=== PATIENT | male | born 1950 | race Caucasian/White ===

== ENCOUNTER 2021-11-22 10:31 | Emergency (ER) | payer MEDICARE, SELFPAY ==
--- NOTE | 2021-11-22 10:34 | ED.EAR ---
HPI - Ear Problem General Chief complaint: Ear Stated complaint: Ear Pain Time Seen by Provider: 11/22/21 10:51 Source: patient and RN notes reviewed Mode of arrival: ambulatory Limitations: no limitations History of Present Illness HPI Narrative: 71-year-old male presents with concern for muffled hearing, worse on the left. Reports he was getting his hearing aid adjusted when they told him he could have fluid in his ear or an infection. He denies any pain in either ear or drainage from either ear. Reports chronic rhinorrhea. Denies nasal congestion MD Complaint: decreased hearing Related Data Home Medications Medication Instructions Recorded Confirmed apixaban 2.5 mg tablet 2.5 mg PO BID 04/27/20 09/28/20 carvedilol 3.125 mg tablet 3.125 mg PO Q12H 04/27/20 11/22/21 empagliflozin 10 mg tablet 10 mg PO DAILY 04/27/20 11/22/21 insulin glargine 100 unit/mL 10 unit SUB-Q DAILY 04/27/20 09/28/20 subcutaneous solution liraglutide 0.6 mg/0.1 mL (18 mg/3 0.6 mg SUB-Q DAILY 04/27/20 11/22/21 mL) subcutaneous pen injector losartan 25 mg tablet 100 mg PO DAILY 04/27/20 11/22/21 clopidogrel 75 mg PO DAILY 11/22/21 11/22/21 mesalamine 2.4 g PO DAILY 11/22/21 11/22/21 minocycline 50 mg PO BID 11/22/21 11/22/21 Allergies Allergy/AdvReac Type Severity Reaction Status Date / Time Mobzejf-USD-ZwQ Reductase AdvReac Unknown Other Verified 11/22/21 10:38 Inhibitor [Pxucvuz-Epf-Khm Reductase Inhibitor] Review of Systems Review of Systems: CONSTITUTIONAL: Denies malaise, chills, sweats, or fever. EYES: Denies visual changes, redness, or discharge. ENT: Reports rhinorrhea. Denies congestion, sinus pain, and sore throat. Reports muffled hearing, worse on the left CARDIOVASCULAR: Denies chest pain, palpitations, or edema. RESPIRATORY: Denies cough. Denies dyspnea. GASTROINTESTINAL: Denies abdominal pain, nausea, vomiting, diarrhea SKIN: Denies rash or itching. MUSCULOSKELETAL: Denies myalgia. NEUROLOGIC: Denies headache. All systems reviewed & are unremarkable except as noted in HPI and below PMFSH Social History Social History Smoking status: Former smoker Smoking end date: 03/03/03 Comments At time of signature, agree with nursing past medical, surgical, social and family history. There is no relevant family history pertinent to the presenting complaint Exam Narrative: GENERAL: Well-appearing, well-nourished, and in no acute distress. HEAD: Normocephalic EYES: PERRLA, conjunctivae clear ENT: Nares clear. Mucous membranes moist. TM pearly pastrana with dull light reflex bilaterally; no tragal tenderness. Oropharynx not erythematous without lesions. Tonsils not enlarged and without exudate, no drooling, no hoarseness, no trismus, uvula midline. NECK: Supple. No lymphadenopathy CHEST: Clear to auscultation, breath sounds equal. No wheezing, rhonchi, rales, or stridor. No respiratory distress, speaks in full sentences. HEART: Regular rate and rhythm. No murmur heard. SKIN: Warm, dry, no rash. NEURO: Alert and oriented x3. PSYCH: Normal mood and affect Course Course Emergency Course: Patient is aware of diagnosis, understands and agrees to treatment plan. Anticipatory guidance given. Patient agrees to follow-up as directed and is aware of reasons to seek care at the emergency department. Portions of this record may have been created with voice recognition software Level of Care: Express Care Visit Vital Signs Vital signs: Reviewed. Medical Decision Making MDM Narrative Medical decision making narrative: Differential diagnosis considered: virus, strep pharyngitis, allergic rhinitis, upper respiratory tract infection, sinusitis, rhinosinusitis, nasopharyngitis. viral pharyngitis, otitis media, otitis externa, otitis effusion, cerumen impaction, foreign body. Exam findings show no acute concerns or changes; patient is non-toxic appearing and is in no distre
[2021-11-22 10:37] VITALS: BP 137/83; PULSE 69; RESP 18; TEMP 36.3; O2SAT 98
[2021-11-22 10:44] VITALS: BP 137/83; PULSE 69; RESP 18; TEMP 36.3; O2SAT 98
== END 2021-11-22 11:01 | disposition home or self-care (01) ==
PROVIDERS: Emergency Provider Nurse Practitioner; PCP Internal Medicine
DX: H69.92 Unspecified Eustachian tube disorder, left ear (principal); Z87.891 Personal history of nicotine dependence; E78.00 Pure hypercholesterolemia, unspecified; I10 Essential (primary) hypertension; I73.9 Peripheral vascular disease, unspecified; E11.9 Type 2 diabetes mellitus without complications; Z95.1 Presence of aortocoronary bypass graft
CPT/HCPCS: 99213; G0463

== ENCOUNTER 2022-05-22 15:48 | Emergency (ER) | payer MEDICARE, SELFPAY ==
[2022-05-22 15:59] VITALS: BP 144/66; PULSE 72; RESP 14; TEMP 36.7; O2SAT 99
--- NOTE | 2022-05-22 16:08 | ED.URI ---
HPI - URI/Sore Throat General Chief Complaint: Upper Respiratory Infection Stated Complaint: Sore Throat/Congestion Time Seen by Provider: 05/22/22 16:05 Source: patient, RN notes reviewed and old records reviewed Mode of arrival: ambulatory Limitations: no limitations History of Present Illness HPI Narrative: 72 year old male who presents to [facility] care with complaints of cough, hoarseness,sore throat and post nasal drainage since Friday. Patient states that he went on a road trip with friend over the weekend the weekend and his friend came down ill on Friday and he started feeling bad on Friday. He reports also that his was ill last week. Patient states that his cough is worse when he lays down, denies any shortness of breath. denies any fevers or body aches. Patient reports that he did a home COVID test yesterday which was negative. MD elicited complaint: cough, sore throat, rhinorrhea and nasal congestion Onset (ago): day(s) (3) Exacerbating factors: supine positioning Related Data Home Medications Medication Instructions Recorded Confirmed apixaban 2.5 mg tablet (Eliquis) 5 mg PO BID 04/27/20 05/22/22 carvedilol 3.125 mg tablet 12.5 mg PO Q12H 04/27/20 05/22/22 empagliflozin 10 mg tablet 10 mg PO DAILY 04/27/20 05/22/22 (Jardiance) insulin glargine 100 unit/mL 56 unit subcut DAILY 04/27/20 05/22/22 subcutaneous solution (Lantus U-100 Insulin) liraglutide 0.6 mg/0.1 mL (18 mg/3 0.6 mg subcut DAILY 04/27/20 05/22/22 mL) subcutaneous pen injector (Victoza 2-Stuart) losartan 25 mg tablet 100 mg PO DAILY 04/27/20 05/22/22 mesalamine 1.2 gram tablet,delayed 2.4 g PO DAILY 11/22/21 05/22/22 release Allergies Allergy/AdvReac Type Severity Reaction Status Date / Time Qllfhxx-PFY-GsH Reductase AdvReac Unknown Other Verified 05/22/22 16:07 Inhibitor [Rmzjwwn-Ilm-Nwt Reductase Inhibitor] Review of Systems Review of Systems: CONSTITUTIONAL: Denies malaise, chills, sweats, or fever. EYES: Denies visual changes, redness, or discharge. ENT: Reports rhinorrhea, congestion,no sinus pain, no otalgia, positive for sore throat. CARDIOVASCULAR: Denies chest pain, palpitations, or edema. RESPIRATORY: Reports cough.? Denies dyspnea. GASTROINTESTINAL: Denies abdominal pain, nausea, vomiting, diarrhea SKIN: Denies rash or itching. MUSCULOSKELETAL: Denies myalgia. NEUROLOGIC: Denies headache. All systems reviewed & are unremarkable except as noted in HPI and below PMFSH Past Medical History Medical History (Updated 05/22/22 @ 17:03 by Brianda Edmond NP) CAD (coronary artery disease) Diabetes Elevated serum cholesterol Hypertension PVD (peripheral vascular disease) URI, acute Surgical History Surgical History (Updated 05/22/22 @ 17:06 by Brianda Edmond NP) History of heart surgery 3 vessel bypass S/P vascular bypass bypass grafts bilateral legs Social History Social History (Updated 05/22/22 @ 17:07 by Brianda Edmond NP) Smoking status: Former smoker Smoking end date: 03/03/03 Alcohol intake: unknown Substance use type: does not use Living arrangements: with family Gender identity (if verbalized by the patient): Male Comments At time of signature, agree with nursing past medical, surgical, social and family history. There is no relevant family history pertinent to the presenting complaint Exam Narrative: GENERAL: Well-appearing, well-nourished, and in no acute distress. HEAD: Normocephalic EYES: PERRLA, conjunctivae clear ENT: Nares clear, turbinates edematous and erythematous, clear discharge. Mucous membranes moist. TM pearly pastrana with dull light reflex bilaterally; no tragal tenderness. Oropharynx erythematous without lesions. Tonsils not enlarged and without exudate, no drooling, no hoarseness, no trismus, uvula midline. NECK: Supple. No lymphadenopathy CHEST: Clear to auscultation, breath sounds equal. No wheezing, rhonchi, ral
[2022-05-22 16:11] VITALS: BP 144/66; PULSE 72; RESP 14; TEMP 36.7; O2SAT 99
== END 2022-05-22 16:28 | disposition home or self-care (01) ==
PROVIDERS: Emergency Provider Registered Nurse; PCP Internal Medicine
DX: J06.9 Acute upper respiratory infection, unspecified (principal); R05.9 Cough, unspecified; Z87.891 Personal history of nicotine dependence; I25.10 Atherosclerotic heart disease of native coronary artery without angina pectoris; E11.9 Type 2 diabetes mellitus without complications; I10 Essential (primary) hypertension; I73.9 Peripheral vascular disease, unspecified; Z95.1 Presence of aortocoronary bypass graft; Z98.62 Peripheral vascular angioplasty status; Z79.4 Long term (current) use of insulin
CPT/HCPCS: 87081; 87880; 99213; G0463

== ENCOUNTER 2022-09-01 12:36 | Emergency (ER) | payer MEDICARE, SELFPAY ==
--- NOTE | ~2022-09-01 | XR_ITS ---
EXAMINATION: XR chest 2V DATE: 09/01/2022 13:20 INDICATION: Shortness of breath TECHNIQUE: PA and lateral views of the chest are obtained. COMPARISON: None available FINDINGS: There are patchy bilateral airspace opacities. No pleural effusion or pneumothorax. The car diomediastinal silhouette is normal. There is moderate thoracic spondylosis. Median sternotomy wires and mediastinal surgical clips are seen, likely from prior coronary artery bypass grafting. Surgical clips in the right upper quadrant are likely from prior cholecystectomy. IMPRESSION: 1. Patchy bilateral airspace opacities, likely pneumonia. Reviewed, dictated and finalized at location A. [employer] SPECIAL[employer]
[2022-09-01 12:51] VITALS: BP 130/64; PULSE 77; RESP 16; TEMP 37.1; O2SAT 99
--- NOTE | 2022-09-01 13:13 | ED.GENADULT ---
HPI - General Adult General Chief complaint: Upper Respiratory Infection Stated complaint: Sore Throat Source: patient Mode of arrival: ambulatory Limitations: no limitations History of Present Illness HPI narrative: Patient presents for evaluation of sick symptoms for last week. Reports sore throat, productive cough of yellow sputum, and shortness of breath. He has chronic shortness of breath following COVID 2 years ago. Current symptoms are not worse than baseline. No fever, chest pain, nausea, vomiting, diarrhea. His recently had similar symptoms. He has underlying coronary artery disease and diabetes. He states his home blood sugars are in the 130s. He does not smoke. He is taking OTC cough medication and cough drops with some improvement in his symptoms. He is anticoagulated with Eliquis. Related Data Home Medications Medication Instructions Recorded Confirmed empagliflozin 10 mg tablet 10 mg PO DAILY 04/27/20 09/01/22 (Jardiance) insulin glargine 100 unit/mL 56 unit subcut DAILY 04/27/20 09/01/22 subcutaneous solution (Lantus U-100 Insulin) liraglutide 0.6 mg/0.1 mL (18 mg/3 1.8 mg subcut DAILY 04/27/20 09/01/22 mL) subcutaneous pen injector (Victoza 2-Stuart) losartan 25 mg tablet 100 mg PO DAILY 04/27/20 09/01/22 mesalamine 1.2 gram tablet,delayed 2.4 g PO DAILY 11/22/21 05/22/22 release apixaban 5 mg tablet (Eliquis) See Rx Instructions .Route .COMPLEX 09/01/22 09/01/22 budesonide 3 mg 3 mg PO DAILY 09/01/22 09/01/22 capsule,delayed,extended release carvedilol 12.5 mg tablet See Rx Instructions .Route .COMPLEX 09/01/22 09/01/22 evolocumab 140 mg/mL subcutaneous mg subcut 09/01/22 pen injector (Repathzak Flanaganick) liraglutide 0.6 mg/0.1 mL (18 mg/3 mg subcut 09/01/22 09/01/22 mL) subcutaneous pen injector (Victoza 3-Stuart) Allergies Allergy/AdvReac Type Severity Reaction Status Date / Time Usirqcp-ATH-SmR Reductase AdvReac Unknown Other Verified 09/01/22 12:58 Inhibitor [Cjtctfa-Qrj-Rvs Reductase Inhibitor] Review of Systems Review of Systems: CONSTITUTIONAL: Denies fever, chills, or sweats. EYES: Denies visual changes, redness, or discharge. ENT: Reports sore throat. Denies rhinorrhea, congestion, or otalgia. CARDIOVASCULAR: Denies chest pain, palpitations, or edema. RESPIRATORY: Reports productive sputum. Reports chronic shortness of breath, not worse from baseline. GASTROINTESTINAL: Denies abdominal pain, nausea, vomiting, or diarrhea. GENITOURINARY: Denies dysuria or hematuria. SKIN: Denies rash or itching. MUSCULOSKELETAL: Denies back pain, joint pain, or myalgia. NEUROLOGIC: Denies headache, numbness, dizziness, or weakness. PSYCHIATRIC: Denies anxiety or depression. [facility] Past Medical History Medical History CAD (coronary artery disease) Diabetes Elevated serum cholesterol Hypertension PVD (peripheral vascular disease) URI, acute Surgical History Surgical History History of heart surgery 3 vessel bypass S/P vascular bypass bypass grafts bilateral legs Social History Social History Smoking status: Former smoker Smoking end date: 03/03/03 Alcohol intake: unknown Substance use type: does not use Living arrangements: with family Gender identity (if verbalized by the patient): Male Exam Narrative: GENERAL: Well-appearing, well-nourished, and in no acute distress. HEAD: Normocephalic, atraumatic. EYES: PERRLA and EOMI. ENT: Nares clear, no rhinorrhea or epistaxis. Mucous membranes moist. Posterior pharyngeal erythema without exudate. Uvula is midline. Bilateral TMs pearly pastrana nonbulging NECK: Supple. No adenopathy or masses. No carotid bruits or JVD CHEST: Cough present on exam. Clear to auscultation. No respiratory distress. No wheezes ra
== END 2022-09-01 13:45 | disposition home or self-care (01) ==
PROVIDERS: Emergency Provider Nurse Practitioner; PCP Internal Medicine
DX: J18.9 Pneumonia, unspecified organism (principal); Z20.822 Contact with and (suspected) exposure to COVID-19; Z87.891 Personal history of nicotine dependence; I25.10 Atherosclerotic heart disease of native coronary artery without angina pectoris; E11.9 Type 2 diabetes mellitus without complications; I10 Essential (primary) hypertension; I73.9 Peripheral vascular disease, unspecified
CPT/HCPCS: 71046; 87081; 87426; 87804; 87880; 99213; C9803; G0463

== ENCOUNTER 2023-06-27 09:20 | Emergency (ER) | payer MEDICARE, SELFPAY ==
--- NOTE | ~2023-06-27 | XR_ITS ---
XR chest 2V 06/27/2023 10:12 Indication: Productive cough. Procedure: 2 view chest Comparison: 09/01/2022 Findings: Status post median sternotomy for CABG. Cardiomegaly. Linear bilateral basilar infiltrates, unchanged. No pleural effusion or pneumothorax. No acute osseous abnormality. There is a large air-f luid level in the stomach. No significant effusion or pneumothorax. Status post median sternotomy. Impression: 1: Chronic bibasilar linear infiltrates, likely atelectasis/scarring. Reviewed, dictated and finalized at location B. [employer] Impression: 1: Chronic bibasilar linear infiltrates, likely atelectasis/scarring.
[2023-06-27 09:36] VITALS: BP 104/54; PULSE 63; RESP 14; TEMP 36.4; O2SAT 99
--- NOTE | 2023-06-27 10:15 | ED.URI ---
HPI - URI/Sore Throat General Chief Complaint: Upper Respiratory Infection Stated Complaint: Cough Time Seen by Provider: 06/27/23 09:50 Source: patient Mode of arrival: ambulatory Limitations: no limitations History of Present Illness HPI Narrative: John is a 73-year-old male patient presenting to the clinic today with complaints of a productive cough times 1.5 weeks. He denies any shortness of breath, sore throat, nasal congestion, or postnasal drip. MD elicited complaint: cough Related Data Home Medications Medication Instructions Recorded Confirmed empagliflozin 10 mg tablet 10 mg PO DAILY 04/27/20 06/27/23 (Jardiance) insulin glargine 100 unit/mL 56 unit subcut DAILY 04/27/20 06/27/23 subcutaneous solution (Lantus U-100 Insulin) liraglutide 0.6 mg/0.1 mL (18 mg/3 1.8 mg subcut DAILY 04/27/20 06/27/23 mL) subcutaneous pen injector (Victoza 2-Stuart) losartan 25 mg tablet 100 mg PO DAILY 04/27/20 06/27/23 mesalamine 1.2 gram tablet,delayed 2.4 g PO DAILY 11/22/21 06/27/23 release apixaban 5 mg tablet (Eliquis) See Rx Instructions .Route .COMPLEX 09/01/22 06/27/23 budesonide 3 mg 3 mg PO DAILY 09/01/22 06/27/23 capsule,delayed,extended release carvedilol 12.5 mg tablet See Rx Instructions .Route .COMPLEX 09/01/22 06/27/23 evolocumab 140 mg/mL subcutaneous See Rx Instructions .Route .COMPLEX 09/01/22 06/27/23 pen injector (Repatha Mashaick) baclofen 10 mg tablet 10 mg DIRECTED 06/27/23 06/27/23 indapamide 2.5 mg tablet 2.5 mg DIRECTED 06/27/23 06/27/23 Allergies Allergy/AdvReac Type Severity Reaction Status Date / Time Djighba-GXM-JrP Reductase AdvReac Unknown Other Verified 09/01/22 12:58 Inhibitor [Dkjpxiv-Mgb-Buv Reductase Inhibitor] Review of Systems Review of Systems: Pertinent positives per HPI. Patient denies any fever, chills, rash, headache, visual changes, dizziness, shortness of breath, chest pain, palpitations, nausea, vomiting, diarrhea, constipation, abdominal pain, or any urinary issues. [facility] Past Medical History Medical History CAD (coronary artery disease) Diabetes Elevated serum cholesterol Hypertension PVD (peripheral vascular disease) URI, acute Surgical History Surgical History History of heart surgery 3 vessel bypass S/P vascular bypass bypass grafts bilateral legs Social History Social History Smoking status: Former smoker Smoking end date: 03/03/03 Alcohol intake: unknown Substance use type: does not use Living arrangements: with family Gender identity (if verbalized by the patient): Male Comments At the time of my signature, I reviewed and agree with the nursing past medical, surgical, social, and family history. There is no relevant family history pertinent to the patient complaint. Exam Narrative: General: Well-developed, well nourished, in no apparent distress Head: Normocephalic, atraumatic Eyes: Pupils equally round and reactive to light bilaterally, EOM intact, sclera and conjunctive clear, no discharge, lids normal Ears: TMs intact and clear, ear canals clear, no drainage, grossly hearing normal. Nose: Nares patent, no discharge, no inflammation, no sinus tenderness. Mouth: Oral pharynx without lesions or masses, good dentition, MMM. Neck: Supple, trachea midline, no enlargement of anterior or posterior cervical nodes, no thyroid masses or goiter palpable. Cardio: Regular rate and rhythm, s1 and s2 normal, no murmur appreciated. Resp: Inspiratory crackles in the bilateral lower bases otherwise clear, no rhonchi, wheezing or rubs Course Course Emergency Course: Portions of this record may have been created with voice recognition software. Level of Care: Express Care Visit Vital Signs Vital signs: Vital Si
== END 2023-06-27 10:28 | disposition home or self-care (01) ==
PROVIDERS: Emergency Provider Nurse Practitioner Family; PCP Internal Medicine
DX: R05.1 Acute cough (principal); L98.9 Disorder of the skin and subcutaneous tissue, unspecified; I25.10 Atherosclerotic heart disease of native coronary artery without angina pectoris; E11.9 Type 2 diabetes mellitus without complications; I10 Essential (primary) hypertension; I73.9 Peripheral vascular disease, unspecified; Z95.1 Presence of aortocoronary bypass graft; Z95.820 Peripheral vascular angioplasty status with implants and grafts; Z79.4 Long term (current) use of insulin; Z87.891 Personal history of nicotine dependence; Z79.01 Long term (current) use of anticoagulants
CPT/HCPCS: 71046; 99213; G0463

== ENCOUNTER 2023-09-16 12:41 | Outpatient (CLI) | payer MEDICARE, SELFPAY ==
--- NOTE | 2023-09-16 14:30 | NEURO_ITS ---
Impression: # Complains of hand weakness bilaterally. # Bilateral Carpal Tunnel Syndrome, right more than left. # Bilateral ulnar neuropathy around the elbows. # Abnormal needle/EMG exam. Nerve Conduction Studies Anti Sensory Summary Table Stim Site NR Peak (ms) P-T Amp (?V) Site1 Site2 Delta-P (ms) Dist (cm) Cooper (m/s) Left Median Anti Sensory (2-3nd Digit) Wrist 4.1 21.5 Wrist 2-3nd Digit 4.1 14.0 34 Wrist 4.3 12.4 Wrist 2-3nd Digit 4.1 14.0 34 Right Median Anti Sensory (2-3nd Digit) Wrist 6.0 36.2 Wrist 2-3nd Digit 6.0 14.0 23 Wrist 5.6 12.6 Wrist 2-3nd Digit 6.0 14.0 23 Left Radial Anti Sensory (Base 1st Digit) Wrist 3.6 16.9 Wrist Base 1st Digit 3.6 0.0 Right Radial Anti Sensory (Base 1st Digit) Wrist 2.8 16.2 Wrist Base 1st Digit 2.8 0.0 Left Ulnar Anti Sensory (5th Digit) Wrist 3.8 8.3 Wrist 5th Digit 3.8 14.0 37 Right Ulnar Anti Sensory (5th Digit) Wrist 4.1 8.7 Wrist 5th Digit 4.1 14.0 34 Motor Summary Table Stim Site NR Onset (ms) O-P Amp (mV) Site1 Site2 Delta-0 (ms) Dist (cm) Cooper (m/s) Left Median Motor (Abd Poll Brev) Wrist 4.1 3.4 Elbow Wrist 7.3 31.0 42 Elbow 11.4 3.0 Right Median Motor (Abd Poll Brev) Wrist 4.8 1.7 Elbow Wrist 7.7 33.0 43 Elbow 12.5 1.1 Left Ulnar Motor (Abd Dig Minimi) Wrist 3.1 2.2 A Elbow Wrist 8.2 33.0 40 A Elbow 11.3 1.7 B Elbow Wrist 6.2 23.0 37 B Elbow 9.3 1.8 Right Ulnar Motor (Abd Dig Minimi) Wrist 3.6 1.2 A Elbow Wrist 7.5 30.0 40 A Elbow 11.1 1.0 B Elbow Wrist 5.1 21.0 41 B Elbow 8.7 1.0 F Wave Studies NR F-Lat (ms) L-R F-Lat (ms) Left Median (Mrkrs) (Abd Poll Brev) 31.11 3.82 Right Median (Mrkrs) (Abd Poll Brev) 34.94 3.82 Left Ulnar (Mrkrs) (Abd Dig Min) 28.77 0.08 Right Ulnar (Mrkrs) (Abd Dig Min) 28.69 0.08 EMG Side Muscle Nerve Root Ins Act Fibs Amp Dur Recrt Comment Right 1stDorInt Ulnar C8-T1 Nml Nml Incr >12ms Reduced Right Ext Indicis Radial (Post Int) C7-8 Nml Nml Nml Nml Nml Right Ext Digitorum Radial (Post Int) C7-8 Nml Nml Nml Nml Nml Right BrachioRad Radial C5-6 Nml Nml Nml Nml Nml Right PronatorTeres Median C6-7 Nml Nml Nml Nml Nml Right Abd Poll Brev Median C8-T1 Nml Nml Nml Nml Nml Right ABD Dig Min Ulnar C8-T1 Nml Nml Incr >12ms Reduced Left 1stDorInt Ulnar C8-T1 Nml Nml Incr >12ms Reduced Left Ext Indicis Radial (Post Int) C7-8 Nml Nml Nml Nml Nml Left Ext Digitorum Radial (Post Int) C7-8 Nml Nml Nml Nml Nml Left BrachioRad Radial C5-6 Nml Nml Nml Nml Nml Left PronatorTeres Median C6-7 Nml Nml Nml Nml Nml Left Abd Poll Brev Median C8-T1 Nml Nml Nml Nml Nml Left ABD Dig Min Ulnar C8-T1 Nml Nml Incr >12ms Reduced Right Abd Poll Long Radial (Post Int) C7-8 Nml Nml Nml Nml Nml Right ExtCarUln Radial (Post Int) C7-8 Nml Nml Nml Nml Nml Left Abd Poll Long Radial (Post Int) C7-8 Nml Nml Nml Nml Nml Left ExtCarUln Radial (Post Int) C7-8 Nml Nml Nml Nml Nml MTDD
== END 2023-09-16 12:42 | disposition home or self-care (01) ==
PROVIDERS: PCP Internal Medicine; Visit Provider Plastic Surgery
DX: M62.541 Muscle wasting and atrophy, not elsewhere classified, right hand (principal); M62.542 Muscle wasting and atrophy, not elsewhere classified, left hand; G56.03 Carpal tunnel syndrome, bilateral upper limbs; G56.23 Lesion of ulnar nerve, bilateral upper limbs
CPT/HCPCS: 95886; 95911

== ENCOUNTER 2023-10-02 01:02 | Day surgery (SDC) | payer MEDICARE, SELFPAY ==
[2023-09-24 11:15] VITALS: BMI 26.6
--- NOTE | 2023-09-24 11:24 | PC.NURSE ---
Report to the Outpatient Waiting Room, entrance under the green pavilion located off [facility], at time ___09____ on date ___10/02/23____. Planned Procedure Time: ___1000 . Time changes happen often and if your time is changed the preop area will call you the afternoon before. - You and your visitor will be asked to self-screen and do not enter if you have any COVID symptoms. - A mask is optional within the hospital at this time. -REGULAR DIET Take the following medications with a SIP of water the morning of surgery: ___REGULAR HOME MEDS DO NOT STOP ANY OF YOUR OTHER PRESCRIPTION MEDICATIONS PRIOR TO SURGERY ?EXCEPT THE FOLLOWING Medications to discontinue per physician ____PT TO REMAIN ON ELIQUIS PER DR PRICE Date to take last dose Please no make-up, nail greenlandic, hairspray, perfume, deodorant, or body powder the day of surgery. No jewelry (including any body piercings) or valuables the day of surgery, leave them at home. Please take a shower or bath the night before, or the morning of, surgery with an antibacterial soap. Wear comfortable, loose fitting clothing. Children are encouraged to wear pajamas. - Jewelry must be removed prior to entering the operating room. Rings and piercings that are not removed may be cut off. - The hospital will not accept responsibility for valuables. - Please leave all valuables, including medications, at home the day of surgery. -MAY DRIVE SELF TO/FROM HOSPITAL, BUT A LAYAWAY CLERK IS RECOMMENDED For Pediatric surgeries, we recommend two adults accompany the child home. Follow any additional instructions given to you from your surgeon. If you or anyone in your household have experienced Covid symptoms in the past week, please notify your surgeon or the nurse liaison at the phone number below for possible testing. Telephone instructions given to ____PT and asked if any additional questions and then verbalized understanding. Patient advised to call surgeon office or pre surgery nurse liaison [phone] if any additional questions.
[2023-10-02] VITALS (11 sets, daily range): BP systolic 102–128; BP diastolic 55–69; PULSE 58–68; RESP 16–20; TEMP 36.2; O2SAT 95–100
--- NOTE | 2023-10-02 07:14 | WPDHPUPDATE1 ---
History and Physical Update Update Date/Time: 10/02/23 07:14 History and Physical has been reviewed, including an updated exam of the patient. There are NO changes in the patient's condition. Risks, benefits, and alternatives have been discussed and questions answered. Patient agrees to proceed with procedure.
--- NOTE | 2023-10-02 11:21 | P.OP_ITS ---
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 He was then taken to the operating room and placed supine on the operating table. He was turned to his left side due to some back issues. A time-out was held and confirmed. The face and neck area were prepped and draped in usual fashion. The site was carefully marked for the excision to include the dome-shaped mass with 2 mm scab. The area was widely infiltrated with 1% lidocaine with epinephrine. The full-thickness skin ellipse including just the very edge of the helix rim cartilage was taken off with scissors. The specimen was marked at its most posterior aspect with suture for identification to the pathologist. The pathologist revealed that this mass contained no cancer. He was also not able to determine that there was chondrodermatitis by frozen section. There wound required contouring of the helix rim with Super cut scissors and extensive undermining of skin along the posterior aspect and less along the anterior aspect. This allowed closure of the anterior and posterior skin margins with running 5 0 nylon. The patient is discharged home instructions in wound care and follow-up. No prescriptions were sent to . Estimated Blood Loss 1 Drains No Packing No Pathology Yes Complications No immediate complications Condition Stable Disposition Same day
== END 2023-10-02 12:05 | disposition home or self-care (01) ==
PROVIDERS: PCP Internal Medicine; Visit Provider Plastic Surgery
PROC: (CPT 11642; principal; 2023-10-02 10:00)
DX: D04.21 Carcinoma in situ of skin of right ear and external auricular canal (principal); H61.001 Unspecified perichondritis of right external ear
CPT/HCPCS: 11642; 13152; 88305; 88331; A9270

== ENCOUNTER 2023-11-06 09:46 | Outpatient (CLI) | payer MEDICARE, SELFPAY ==
[2023-11-06 10:28] LABS: Anion Gap 8 mmol/L (4-12); Blood Urea Nitrogen 25 mg/dL (9-20); Calcium 9.7 mg/dL (8.4-10.2); Carbon Dioxide 31 mmol/L (22-30); Chloride 102 mmol/L (98-107); Estimated Glomerular Filt Rate 54; Glucose 152 mg/dL (65-110); Potassium 4.1 mmol/L (3.4-5.0); Sodium 141 mmol/L (137-145)
== END 2023-11-06 09:47 | disposition home or self-care (01) ==
LOC: ANHSURGERY 09:48
PROVIDERS: Anesthesiology; PCP Internal Medicine; Visit Provider Plastic Surgery
DX: E11.9 Type 2 diabetes mellitus without complications (principal); Z01.818 Encounter for other preprocedural examination
CPT/HCPCS: 36415; 80048

== ENCOUNTER 2023-11-12 00:39 | Day surgery (SDC) | payer MEDICARE, SELFPAY ==
[2023-11-04 09:23] VITALS: BMI 27.6
--- NOTE | 2023-11-04 09:32 | PC.NURSE ---
PRE-OP INSTRUCTIONS, PLEASE READ CAREFULLY Report to the Outpatient Waiting Room, entrance under the green pavilion located off [facility], at time _0600_ on date _11/12/23_. Planned Procedure Time: _0730_. Time changes happen often and if your time is changed the preop area will call you the afternoon before. - You and your visitor will be asked to self-screen and do not enter if you have any COVID symptoms. - A mask is optional within the hospital at this time. Patients may have clear liquids (water, carbonated beverages, clear teas, apple juice) until 3 hours prior to surgery (0430 AM) with a maximum of 20 ounces. - No food from midnight until time of surgery Take the following medications with a SIP of water the morning of surgery: _CARVEDILOL, *DO NOT TAKE ANY INSULIN MORNING OF SURGERY*_ DO NOT STOP ANY OF YOUR OTHER PRESCRIPTION MEDICATIONS PRIOR TO SURGERY ?EXCEPT THE FOLLOWING Medications to discontinue per DR. PRICE - _ELIQUIS 5 DAYS PRIOR TO SURGERY (PER PATIENT), Date to take last dose 11/05/22_ Please no make-up, nail angolan, hairspray, perfume, deodorant, or body powder the day of surgery. No jewelry (including any body piercings) or valuables the day of surgery, leave them at home. Please take a shower or bath the night before, or the morning of, surgery with an antibacterial soap. Wear comfortable, loose fitting clothing. - Jewelry must be removed prior to entering the operating room. Rings and piercings that are not removed may be cut off. - The hospital will not accept responsibility for valuables. - Please leave all valuables, including medications, at home the day of surgery. If you are going home after surgery, a licensed production truck driver must drive you home. - NO public transportation without another adult if you receive anesthesia. - We recommend that an adult stay with you for 24 hours following discharge. - We also recommend that you do not drive, make important decision, drink alcoholic beverages, or take any drugs that were not prescribed by your health care provider for at least 24 hours after your discharge time. Follow any additional instructions given to you from your surgeon. If you or anyone in your household have experienced Covid symptoms in the past week, please notify your surgeon or the nurse liaison at the phone number below for possible testing. Telephone instructions given to _PATIENT_and asked if any additional questions and then verbalized understanding. Patient advised to call surgeon office or pre surgery nurse liaison [phone] if any additional questions.
[2023-11-12 06:24] VITALS: BP 139/69; PULSE 64; RESP 16; TEMP 36.2; O2SAT 98
[2023-11-12] MEDS: LACTATED RINGERS 1,000 ML 30 ML IV CONT ×2 (06:38→09:22)
[2023-11-12 06:58] LABS: Glucose Point of Care 159 mg/dl (65-105)
--- NOTE | 2023-11-12 06:59 | WPDANESEPPF ---
Anes - Initial Pre Proc Eval Procedure: Operation Date: 11/12/23 07:30 Proposed Procedures p Right Open Carpal Tunnel Release - Elkin Zamora MD s Right Ulnar Neuroplasty at Elbow - Elkin Zamora MD Date/Time: 11/12/23 06:59 Surgeon: Elkin Zamora MD Pre Op Diagnosis: Rt Carpal Tunnel Syn & Rt Cubital Tunnel Syn Patient Data Age: 73 Gender: M Height: 1.75 m Weight: 83.3 kg Last Vital Signs Temp 97.2 F L 11/12/23 06:24 Pulse 64 11/12/23 06:24 Resp 16 11/12/23 06:24 BP 139/69 11/12/23 06:24 Pulse Ox 98 11/12/23 06:24 Allergies Allergy/AdvReac Type Severity Reaction Status Date / Time Ndqkile-MQF-YwP Reductase AdvReac Unknown Other Verified 11/12/23 06:23 Inhibitor [Mdzfjlr-Jwz-Dhe Reductase Inhibitor] Home Medications Medication Instructions Recorded Confirmed Type empagliflozin 10 mg tablet 2.5 mg PO DAILY 04/27/20 11/04/23 History (Jardiance) insulin glargine 100 unit/mL 56 unit subcut DAILY 04/27/20 11/04/23 History subcutaneous solution (Lantus U-100 Insulin) liraglutide 0.6 mg/0.1 mL (18 mg/3 1.8 mg subcut DAILY 04/27/20 11/04/23 History mL) subcutaneous pen injector (Victoza 2-Stuart) losartan 25 mg tablet 100 mg PO DAILY 04/27/20 11/04/23 History mesalamine 1.2 gram tablet,delayed 2.4 g PO DAILY 11/22/21 11/04/23 History release apixaban 5 mg tablet (Eliquis) See Rx Instructions .Route .COMPLEX 09/01/22 11/04/23 History budesonide 3 mg 3 mg PO DAILY 09/01/22 11/04/23 History capsule,delayed,extended release carvedilol 12.5 mg tablet See Rx Instructions .Route .COMPLEX 09/01/22 11/04/23 History evolocumab 140 mg/mL subcutaneous See Rx Instructions .Route .COMPLEX 09/01/22 11/04/23 History pen injector (Repatha SureChitoick) baclofen 10 mg tablet 10 mg DIRECTED 06/27/23 11/04/23 History indapamide 2.5 mg tablet 2.5 mg DIRECTED 06/27/23 11/04/23 History insulin aspart U-100 100 unit/mL 10 unit subcut TID 09/24/23 11/04/23 History (3 mL) subcutaneous pen (Novolog FlexPen U-100 Insulin aspart) Laboratory Tests 11/12/23 06:54 POC Capillary Glucose 159 H mg/dl (65-105) Patient hx anesthesia problems: none Family hx anesthesia problems: none Results Review: All pre-operative results and documents have been reviewed as part of the pre-operative evaluation. [facility] Past Medical History Medical History CAD (coronary artery disease) Diabetes Elevated serum cholesterol Hypertension PVD (peripheral vascular disease) URI, acute Surgical History Surgical History History of heart surgery 3 vessel bypass S/P vascular bypass bypass grafts bilateral legs Social History Social History Smoking packs per day: 0.5 Smoking cigarettes per day: 10.0 Years smoked: 30 Smoking pack-years: 15.00 Smoking status: Former smoker Tobacco type: cigarettes Second hand tobacco smoke exposure: No Smoking end date: 03/03/03 Alcohol intake: never Substance use: never Substance use type: does not use Living arrangements: with family Gender identity (if verbalized by the patient): Male Spiritual care concerns: No Anes - Eval Final PreProcedure Day of Procedure 11/12/23 06:59 Patient weight: overweight Heart: regular rate and rhythm Lungs: clear to auscultation and decreased breath sounds Airway: Mallampati scale and special considerations (Edentulous on top, several lower teeth, none loose. ) Neurological: alert and oriented Last oral intake: >/= 8 hours ASA classification: IV Emergent: no Anesthetic plan: proceed Anesthesia type and monitoring: general GIVS and standard monitoring Results Review: All pre-operative results and documents have been reviewed as part of the pre-operative evaluation. Pt repo
--- NOTE | 2023-11-12 07:16 | WPDHPUPDATE1 ---
History and Physical Update Update Date/Time: 11/12/23 07:16 History and Physical has been reviewed, including an updated exam of the patient. There are NO changes in the patient's condition. Risks, benefits, and alternatives have been discussed and questions answered. Patient agrees to proceed with procedure.
--- NOTE | 2023-11-12 07:54 | SUR.PREOP ---
Surgery delayed so could go home and get controller for spinal cord stimulator.
--- NOTE | 2023-11-12 08:28 | SUR.PREOP ---
returned with controller and patient turned off spinal cord stimulator for surgery.
[2023-11-12] MEDS: LIDO 1%/EPINEPHRINE 1:100,000 20 ML VIAL INFILTRATE (11:03)
[2023-11-12 11:47] VITALS: BP 139/63; PULSE 67; RESP 12; O2SAT 98
--- NOTE | 2023-11-12 11:52 | W.PM.PROC2 ---
Procedure Note - Detailed Date of Procedure 11/12/23 Pre-op Diagnosis Rt Carpal Tunnel Syn & Rt Cubital Tunnel Syn Post-op Diagnosis Same Procedure Performed Right open carpal tunnel release and right ulnar neuroplasty at the elbow Surgeon Elkin Zamora MD [employer] Lisa Anesthesia MAC Indications Interosseous wasting positive nerve conduction test Description of Procedure The right carpal canal right cubital tunnel were marked on the patient is consent in the holding area. Has a nerve stimulator this had been turned prone with his for this the appropriate instrumentation from that. He was taken to the operating room and placed supine on the operating table. He was given IV sedation the right upper extremity was prepped and draped in usual fashion. A time-out was held confirmed. The sites were marked for the incision in both locally infiltrated with 1% lidocaine with epinephrine. Surgery began palm where the incision was made over carpal canal. Blunt dissection revealed the palmar aponeurosis. This and the transverse retinacular under divided with his 15 blade. Under 3 point retraction the ligament was divided distally and proximally for complete release. No unusual anatomy was noted. The skin was closed with interrupted 4-0 nylon suture. The elbow was flexed and supported on folded towels and the incision made at that site. Blunt dissection revealed the course of the ulnar nerve passing posterior to the medial epicondyle. Seemed to be encased in somewhat open all scar and the nerve was relatively quite without striations in the region just proximal to Valdovinos's ligament. The course of the nerve was followed and all restricting Lupe overlying it were lysed. Of not necessary to do anterior transposition since it did not sublux. The tourniquet was released. Few bleeding points were electro coagulated. The wound was approximated with intradermal 3-0 Monocryl sutures the several sites and then a running intradermal 3-0 Monocryl closed the skin. The site was covered with glue. The usual bandage was applied to the hand and elbow and the patient was discharged from the operating room in stable condition. Estimated Blood Loss 5 Drains No Packing No Pathology None sent Complications No immediate complications Condition Stable Disposition PACU
[2023-11-12 12:03] LABS: Glucose Point of Care 110 mg/dl (65-105)
[2023-11-12 12:15] VITALS: BP 124/55; PULSE 61; RESP 20
[2023-11-12 12:40] VITALS: BP 135/55; PULSE 57; RESP 20
== END 2023-11-12 12:44 | disposition home or self-care (01) ==
PROVIDERS: PCP Internal Medicine; Visit Provider Plastic Surgery
PROC: (CPT 64721; principal; 2023-11-12 07:30)
PROC: (CPT 64721; 2023-11-12 07:30)
DX: G56.01 Carpal tunnel syndrome, right upper limb (principal); G56.21 Lesion of ulnar nerve, right upper limb; I25.10 Atherosclerotic heart disease of native coronary artery without angina pectoris; E11.51 Type 2 diabetes mellitus with diabetic peripheral angiopathy without gangrene; E78.00 Pure hypercholesterolemia, unspecified; Z95.1 Presence of aortocoronary bypass graft; Z87.891 Personal history of nicotine dependence; Z79.84 Long term (current) use of oral hypoglycemic drugs; Z79.4 Long term (current) use of insulin; Z79.85 Long-term (current) use of injectable non-insulin antidiabetic drugs; Z79.01 Long term (current) use of anticoagulants
CPT/HCPCS: 64721; 64718; 36415; 80048; 82948; A9270; J1596; J2371; J2405; J2704; J3010; J7120

== ENCOUNTER 2023-12-12 00:33 | Day surgery (SDC) | payer MEDICARE, SELFPAY ==
[2023-12-02 15:00] VITALS: BMI 27.3
--- NOTE | 2023-12-02 15:08 | PC.NURSE ---
Report to the Outpatient Waiting Room, entrance under the green pavilion located off [facility], at time ___0900____ on date __12/12/23 . Planned Procedure Time: ___1100 . Time changes happen often and if your time is changed the preop area will call you the afternoon before. - You and your visitor will be asked to self-screen and do not enter if you have any COVID symptoms. - A mask is optional within the hospital at this time. Patients may have clear liquids (water, carbonated beverages, clear teas, apple juice) until 3 hours prior to surgery with a maximum of 20 ounces. - No food from midnight until time of surgery - Infants may have breast milk until 4 hours before surgery, infant formula 6 hours prior to surgery. - Children will be allowed to drink immediately following surgery. If applicable, please bring a bottle or sippy cup to assist with drinking. Juice, water, soda, and popsicles are readily available. For infants on formula, please bring formula the day of surgery. Pacifiers are allowed. Take the following medications with a SIP of water the morning of surgery: _CARVEDILOL, & BACLOFEN, PAIN PILL IF NEEDED DO NOT TAKE INSULIN AM OF SURGERY__ DO NOT STOP ANY OF YOUR OTHER PRESCRIPTION MEDICATIONS PRIOR TO SURGERY ?EXCEPT THE FOLLOWING Medications to discontinue per DR. PRICE -_ELIQUIS 5 DAYS PRIOR TO SURGERY, Date to take last dose 12/06/23_ Please no make-up, nail spanish, hairspray, perfume, deodorant, or body powder the day of surgery. No jewelry (including any body piercings) or valuables the day of surgery, leave them at home. Please take a shower or bath the night before, or the morning of, surgery with an antibacterial soap. Wear comfortable, loose fitting clothing. Children are encouraged to wear pajamas. - Jewelry must be removed prior to entering the operating room. Rings and piercings that are not removed may be cut off. - The hospital will not accept responsibility for valuables. - Please leave all valuables, including medications, at home the day of surgery. If you are going home after surgery, a licensed city bus driver must drive you home. - NO public transportation without another adult if you receive anesthesia. - We recommend that an adult stay with you for 24 hours following discharge. - We also recommend that you do not drive, make important decision, drink alcoholic beverages, or take any drugs that were not prescribed by your health care provider for at least 24 hours after your discharge time. For Pediatric surgeries, we recommend two adults accompany the child home. Follow any additional instructions given to you from your surgeon. If you or anyone in your household have experienced Covid symptoms in the past week, please notify your surgeon or the nurse liaison at the phone number below for possible testing. Telephone instructions given to _PT_and asked if any additional questions and then verbalized understanding. Patient advised to call surgeon office or pre surgery nurse liaison [phone] if any additional questions.
--- NOTE | 2023-12-12 09:03 | WPDHPUPDATE1 ---
History and Physical Update Update Date/Time: 12/12/23 09:03 History and Physical has been reviewed, including an updated exam of the patient. There are NO changes in the patient's condition. Risks, benefits, and alternatives have been discussed and questions answered. Patient agrees to proceed with procedure.
[2023-12-12 09:59] LABS: Glucose Point of Care 133 mg/dl (65-105)
[2023-12-12 10:00] VITALS: BP 125/59; PULSE 64; RESP 14; TEMP 36.2; O2SAT 97
--- NOTE | 2023-12-12 11:07 | WPDANESEPPF ---
Anes - Initial Pre Proc Eval Procedure: Operation Date: 12/12/23 11:00 Proposed Procedures p Left Open Carpal Tunnel Release - Elkin Zamora MD s Left Ulnar Neuroplasty at the Elbow - Elkin Zamora MD Date/Time: 12/12/23 11:07 Surgeon: Elkin Zamora MD Pre Op Diagnosis: Lt Carpal Tunnel Synd, Lt Cubital Tunnel Synd Patient Data Age: 73 Gender: M Height: 1.75 m Weight: 83.8 kg Last Vital Signs Temp 97.2 F L 12/12/23 10:00 Pulse 64 12/12/23 10:00 Resp 14 12/12/23 10:00 BP 125/59 L 12/12/23 10:00 Pulse Ox 97 12/12/23 10:00 O2 Del Method Room Air 12/12/23 10:00 Allergies Allergy/AdvReac Type Severity Reaction Status Date / Time Ljzlmhy-RNG-QsN Reductase AdvReac Unknown Other Verified 12/12/23 10:06 Inhibitor [Vplxxrp-Ibk-Oet Reductase Inhibitor] Home Medications Medication Instructions Recorded Confirmed Type empagliflozin 10 mg tablet 2.5 mg PO DAILY 04/27/20 12/02/23 History (Jardiance) insulin glargine 100 unit/mL 56 unit subcut DAILY 04/27/20 12/02/23 History subcutaneous solution (Lantus U-100 Insulin) liraglutide 0.6 mg/0.1 mL (18 mg/3 1.8 mg subcut DAILY 04/27/20 12/02/23 History mL) subcutaneous pen injector (Victoza 2-Stuart) losartan 25 mg tablet 100 mg PO DAILY 04/27/20 12/02/23 History mesalamine 1.2 gram tablet,delayed 2.4 g PO DAILY 11/22/21 12/02/23 History release apixaban 5 mg tablet (Eliquis) See Rx Instructions .Route .COMPLEX 09/01/22 12/02/23 History budesonide 3 mg 3 mg PO DAILY 09/01/22 12/02/23 History capsule,delayed,extended release carvedilol 12.5 mg tablet See Rx Instructions .Route .COMPLEX 09/01/22 12/12/23 History evolocumab 140 mg/mL subcutaneous See Rx Instructions .Route .COMPLEX 09/01/22 12/02/23 History pen injector (Repatha SureClick) baclofen 10 mg tablet 10 mg DIRECTED 06/27/23 12/02/23 History indapamide 2.5 mg tablet 2.5 mg DIRECTED 06/27/23 12/02/23 History insulin aspart U-100 100 unit/mL 10 unit subcut TID 09/24/23 12/02/23 History (3 mL) subcutaneous pen (Novolog FlexPen U-100 Insulin aspart) hydrocodone 5 mg-acetaminophen 325 1 tablet PO Q6H PRN pain #7 tabs 11/12/23 12/02/23 Rx mg tablet Laboratory Tests 12/12/23 09:56 POC Capillary Glucose 133 H mg/dl (65-105) Patient hx anesthesia problems: none Family hx anesthesia problems: none Results Review: All pre-operative results and documents have been reviewed as part of the pre-operative evaluation. [facility] Past Medical History Medical History CAD (coronary artery disease) Diabetes Elevated serum cholesterol Hypertension PVD (peripheral vascular disease) URI, acute Surgical History Surgical History History of heart surgery 3 vessel bypass S/P vascular bypass bypass grafts bilateral legs Social History Social History Smoking packs per day: 0.5 Smoking cigarettes per day: 10.0 Years smoked: 30 Smoking pack-years: 15.00 Smoking status: Former smoker Tobacco type: cigarettes Second hand tobacco smoke exposure: No Smoking end date: 03/03/03 Alcohol intake: never Substance use: never Substance use type: does not use Living arrangements: with family Gender identity (if verbalized by the patient): Male Spiritual care concerns: No Anes - Eval Final PreProcedure Day of Procedure 12/12/23 11:07 Patient weight: normal Heart: regular rate and rhythm Lungs: clear to auscultation Airway: Mallampati scale class II Neurological: alert and oriented Last oral intake: >/= 8 hours ASA classification: III Emergent: no Anesthetic plan: proceed Anesthesia type and monitoring: general GIVS and standard monitoring Results Review: All pre-operative results and documents have been reviewed a
[2023-12-12] MEDS: LIDO 1%/EPINEPHRINE 1:100,000 50 ML VIAL 15 ML INFILTRATE (12:23)
[2023-12-12 12:47] VITALS: BP 121/60; PULSE 63; RESP 16; O2SAT 98
[2023-12-12] MEDS: LACTATED RINGERS 1,000 ML 30 ML IV CONT (12:47)
--- NOTE | 2023-12-12 13:14 | SUR.PHASEII ---
1305 - rt forearm sutures removed. incision well approximated.
[2023-12-12 13:15] VITALS: BP 123/59; PULSE 56; RESP 20
[2023-12-12 13:18] LABS: Glucose Point of Care 108 mg/dl (65-105)
[2023-12-12] MEDS: oxyCODONE HCL (*CRX) 5 MG TAB IR PO (13:28)
[2023-12-12 13:45] VITALS: BP 141/63; PULSE 57; RESP 20
--- NOTE | 2023-12-12 16:31 | W.PM.PROC2 ---
Procedure Note - Detailed Date of Procedure 12/12/23 Pre-op Diagnosis Lt Carpal Tunnel Synd, Lt Cubital Tunnel Synd Post-op Diagnosis Same Procedure Performed Left open carpal tunnel release. Left ulnar neuroplasty at the elbow Surgeon Elkin Zamora MD Anesthesia MAC Description of Procedure The left carpal tunnel in the left cubital tunnel sites were marked on the patient with his consent in the holding area. He was then taken to the operating room where he was placed supine on the operating table he was given a sedation anesthesia with LMA. The left upper extremity was prepped and draped in usual fashion from the fingertips to the mid arm the sites were marked for the incision and both infiltrated with 1% lidocaine with epinephrine. The extremity was exsanguinated with an Esmarch and the tourniquet inflated to 250 mmHg. The surgery was started in the palm where the incision was made as marked. Blunt dissection revealed the palmar aponeurosis. Retractors were placed and the palmar aponeurosis and the transverse retinaculum were incised with a 15. Blade. Under 3 point retraction the ligament was divided distally and proximally for complete release. No unusual anatomy was noted. The skin wound was closed with interrupted 4-0 nylon suture. Attention was turned to the elbow the elbow was flexed and supported on folded towels and the incision was made for the ulnar neuroplasty. Sharp and blunt dissection anterior posterior to the medial condyle revealed the ulnar nerve. Overlying fascia was released in both directions the nerve did not subluxate a small finger could be passed alongside the nerve both directions. The tourniquet was released and bleeding sites were controlled. The wound was closed with intradermal 4-0 Monocryl sutures at cross hatching pavon any running intradermal 4-0 Monocryl to close the skin. Soft bulky bandages were applied to both sites and covered with Ramon wraps. The patient was discharged from the operating room in stable condition the total tourniquet time was 21 minutes. Use discharged home with instructions in wound care and follow-up and a prescription for hydrocodone APAP 325 7. Estimated Blood Loss 3 IV Fluids 21 Drains No Packing No Pathology None sent Complications No immediate complications Condition Stable Disposition Same day
== END 2023-12-12 13:58 | disposition home or self-care (01) ==
PROVIDERS: PCP Internal Medicine; Visit Provider Plastic Surgery
PROC: (CPT 64721; principal; 2023-12-12 11:00)
PROC: (CPT 64721; 2023-12-12 11:00)
DX: G56.02 Carpal tunnel syndrome, left upper limb (principal); G56.22 Lesion of ulnar nerve, left upper limb; I25.10 Atherosclerotic heart disease of native coronary artery without angina pectoris; I10 Essential (primary) hypertension; E78.00 Pure hypercholesterolemia, unspecified; E11.51 Type 2 diabetes mellitus with diabetic peripheral angiopathy without gangrene; Z79.4 Long term (current) use of insulin; Z79.84 Long term (current) use of oral hypoglycemic drugs; Z79.01 Long term (current) use of anticoagulants; Z79.891 Long term (current) use of opiate analgesic; Z87.891 Personal history of nicotine dependence; Z95.1 Presence of aortocoronary bypass graft
CPT/HCPCS: 64721; 64718; 82948; A9270; J3010; J7120

== ENCOUNTER 2024-07-01 11:42 | Emergency (ER) | payer MEDICARE, SELFPAY ==
--- NOTE | ~2024-07-01 | XR_ITS ---
EXAMINATION: XR chest 2V DATE: 07/01/2024 12:41 INDICATION: Right lung base rhonchi. TECHNIQUE: Frontal and lateral views of the chest were obtained. COMPARISON: Chest 2 views 06/27/2023 FINDINGS: There is mild atelectasis in left lower lung zone. No pleural effusion or pneumothorax. The heart size is normal. Median sternotomy wires and mediastinal surgical clips are seen, likely from p rior coronary artery bypass grafting. Epidural electrodes are noted. Surgical clips in the right uppe r quadrant are likely from cholecystectomy. IMPRESSION: 1. Mild atelectasis in left lower lung zone. Reviewed, dictated and finalized at location A. ROL DIRECTOR
[2024-07-01 11:48] VITALS: BP 115/60; PULSE 75; RESP 20; TEMP 36.6; O2SAT 100
[2024-07-01 11:58] VITALS: BP 115/60; PULSE 75; RESP 20; TEMP 36.6; O2SAT 100
--- NOTE | 2024-07-01 12:12 | ED.URI ---
HPI - URI/Sore Throat General Chief Complaint: Upper Respiratory Infection Stated Complaint: sore throat Time Seen by Provider: 07/01/24 12:13 Source: patient, RN notes reviewed and old records reviewed Mode of arrival: ambulatory Limitations: no limitations History of Present Illness HPI Narrative: 74 year old male who presents to [facility] care with complaints of sore throat and some cough and hoarseness for the past 2 days. Patient reports that he has not had a known fever chills or sweats reports mild shortness of breath with activity..Patient reports that he has been using Cepacol and cough drops for his sore throat. Patient reports that he had hip replacement 8 weeks ago and is doing well with his rehab. Patient reports that he was in the hospital for 10 days when he had COVID in the past and almost the 2nd day. Patient reports that he has had COVID and flu vaccination this year MD elicited complaint: cough and sore throat Pertinent past history: pneumonia (COVID) Onset (ago): day(s) (2) Consistency: constant Pain scale (0-10): 6 Description of mucous: clear Able to tolerate fluids by mouth: Yes Treatments prior to arrival: other (cepacol and cough drops) Related Data Home Medications Medication Instructions Recorded Confirmed empagliflozin 10 mg tablet 2.5 mg PO DAILY 04/27/20 07/01/24 (Jardiance) insulin glargine 100 unit/mL 56 unit subcut DAILY 04/27/20 07/01/24 subcutaneous solution (Lantus U-100 Insulin) liraglutide 0.6 mg/0.1 mL (18 mg/3 1.8 mg subcut DAILY 04/27/20 07/01/24 mL) subcutaneous pen injector (Victoza 2-Stuart) apixaban 5 mg tablet (Eliquis) See Rx Instructions .Route .COMPLEX 09/01/22 07/01/24 budesonide 3 mg 3 mg PO TID 09/01/22 07/01/24 capsule,delayed,extended release carvedilol 12.5 mg tablet See Rx Instructions .Route .COMPLEX 09/01/22 07/01/24 evolocumab 140 mg/mL subcutaneous See Rx Instructions .Route .COMPLEX 09/01/22 07/01/24 pen injector (Repatha Mashaick) indapamide 2.5 mg tablet 2.5 mg DIRECTED 06/27/23 07/01/24 insulin aspart U-100 100 unit/mL 10 unit subcut TID 09/24/23 07/01/24 (3 mL) subcutaneous pen (Novolog FlexPen U-100 Insulin aspart) ezetimibe 10 mg tablet 10 mg PO DAILY 07/01/24 07/01/24 gabapentin 300 mg capsule 300 mg PO QHS 07/01/24 07/01/24 losartan 100 mg tablet 100 mg PO DAILY 07/01/24 07/01/24 Allergies Allergy/AdvReac Type Severity Reaction Status Date / Time Jglibeb-AGW-OkK Reductase AdvReac Unknown Other Verified 07/01/24 11:50 Inhibitor [Drvgjrf-Daj-Sfo Reductase Inhibitor] Review of Systems Review of Systems: CONSTITUTIONAL: Reports malaise,no chills, sweats, or fever. EYES: Denies visual changes, redness, or discharge. ENT: Reports rhinorrhea, congestion, sinus pain,no otalgia and positive for sore throat, hoarseness. CARDIOVASCULAR: Denies chest pain, palpitations, or edema. RESPIRATORY: Reports cough.?reports some dyspnea with exertion GASTROINTESTINAL: Denies abdominal pain, nausea, vomiting, diarrhea SKIN: Denies rash or itching. MUSCULOSKELETAL: Denies myalgia. NEUROLOGIC: Denies headache. All systems reviewed & are unremarkable except as noted in HPI and below PMFSH Past Medical History Medical History (Updated 07/02/24 @ 09:39 by Brianda Edmond NP) CAD (coronary artery disease) Diabetes Elevated serum cholesterol Hypertension PVD (peripheral vascular disease) Spinal cord stimulator status URI, acute Surgical History Surgical History (Updated 07/02/24 @ 09:39 by Brianda Edmond NP) History of cholecystectomy History of heart surgery 3 vessel bypass History of total right hip replacement S/P vascular bypass bypass grafts bilateral legs Social History Social History Smoking packs per day: 0.5 Smoking cigarettes per day: 10.0 Years smoked: 30 Smoking pack-years: 15.00 Smoking status: Former smoker Tobacco type: cigarettes Second hand tobacco smoke exposure: No Smoking end date: 03/03/03 Alcohol intake: never Substance use: never Substance use type: does not use Living arrangements: with family Gender identity (if verbalized by the patient): Male Spiritual care concerns: No Comments At time of signature, agree with nursing past medical, surgical, social and family history. There is no relevant family history pertinent to the presenting complaint Exam Narrative: GENERAL: chronic ill-appearing, well-nourished, and in no acute distress. HEAD: Normocephalic EYES: PERRLA, conjunctivae clear ENT: Nares clear, turbinates edematous and erythematous, clear discharge, sinus pressure. Mucous membranes moist. TM pearly pastrana with dull light reflex bilaterally; no tragal tenderness. Oropharynx erythematous without lesions. Tonsils not present and throat without exudate, no drooling, positive for hoarseness, no trismus, uvula midline, post nasal drainage present. NECK: Supple. No lymphadenopathy CHEST: Rhonchi noted in right base on auscultation, breath sounds equal. No wheezing, positive rhonchi right base, no rales, or stridor. No respiratory distress, speaks in full sentences.cough with some ASENCIO, SAO2 100% on room air HEART: Regular rate and rhythm. No murmur heard. SKIN: Warm, dry, no rash. NEURO: Alert and oriented x3. PSYCH: Normal mood and affect Course Course Emergency Course: Patient is aware of diagnosis, understands and agrees to treatment plan.? Anticipatory guidance given.? Patient agrees to follow-up as directed and is aware of reasons to seek care at the emergency department. Portions of this record may have been created with voice recognition software Level of Care: Express Care Visit Vital Signs Vital signs: Vital Signs Temperature 36.6 C 07/01/24 11:48 Pulse Rate 75 07/01/24 11:48 Respiratory Rate 20 07/01/24 11:48 Blood Pressure 115/60 07/01/24 11:48 Pulse Oximetry 100 07/01/24 11:48 Oxygen Delivery Room Air 07/01/24 11:48 Temperature 36.6 C 07/01/24 11:58 Pulse Rate 75 07/01/24 11:58 Respiratory Rate 20 07/01/24 11:58 Blood Pressure 115/60 07/01/24 11:58 Pulse Oximetry 100 07/01/24 11:58 Oxygen Delivery Room Air 07/01/24 11:58 Reviewed MDM - URI/Sore Throat MDM Narrative Medical decision making narrative: Differential diagnosis considered: virus, strep pharyngitis, allergic rhinitis, upper respiratory tract infection, sinusitis, rhinosinusitis, nasopharyngitis. viral pharyngitis, otitis media, otitis externa, pneumonia, bronchitis, viral cough syndrome, viral syndrome, and influenza.? Exam findings show no acute concerns or changes; patient is non-toxic appearing and is in no distress.? Patient is appropriate for outpatient treatment and follow-up. Differential Diagnosis Differential diagnosis: Likely upper respiratory infection, viral infection, influenza, pharyngitis and other (strep pharyngitis, COVID) Medical Records Attestation: I reviewed the patient's medical records. Lab Data Attestation: I reviewed the patient's lab results. Lab results narrative: strep screen negative, culture sent, Influenza A negative,Influenza B negative, COVID neg Labs: Lab Results 07/01/24 Range/Units 12:05 POC Influenza A Ag Negative (Negative) POC Influenza B Ag Negative (Negative) POC SARS CoV-2 Ag Negative (Negative) POC Grp A Strep Screen Negative (Negative) reviewed Imaging Data My impression: atelectasis in left lower lung zone, no pleural effusion Radiologist's impression: [place] [address] XRay Report Signed Patient: John Winn : 1950 MR#: [id number] Age: 74 Acct:[id number] Loc: [facility] ADM Date: 07/01/24Attending Dr: Ordering Physician: Brianda Edmond APRN Date of Service: 07/01/24 Procedure(s): XR chest 2V Accession Number(s): [id number] cc: Jaden, Eh Ortega MD; Brianda Edmond APRN~ EXAMINATION: XR chest 2V DATE: 07/01/2024 12:41 INDICATION: Right lung base rhonchi. TECHNIQUE: Frontal and lateral views of the chest were obtained. COMPARISON: Chest 2 views 06/27/2023 FINDINGS: There is mild atelectasis in left lower lung zone. No pleural effusion or pneumothorax. The heart size is normal. Median sternotomy wires and mediastinal surgical clips are seen, likely from prior coronary artery bypass grafting. Epidural electrodes are noted. Surgical clips in the right upper quadrant are likely from cholecystectomy. IMPRESSION: 1. Mild atelectasis in left lower lung zone. Reviewed, dictated and finalized at location A. GE MANAGEMENT MANAGER Dictated By: Jamie James MD 07/01/24 1241 Signed By: <Electronically signed by Jamie James MD in OV> Critical Care Time Critical Care Time Critical Care Time: No Discharge Plan Discharge Clinical Impression: URI, acute, Pharyngitis Patient Disposition: Home, Self-Care Condition: Stable Instructions: Antibiotic Form, Pharyngitis (ED), Upper Respiratory Infection (ED) Additional Instructions: Increase fluids especially juices and water Hyyv-iaw-dskfosv cough and cold medicine of your choice for your symptoms Zyrtec or Claritin daily Amoxicillin 875mg twice a day for 10 days complete all doses heat to the face 20-30 minutes 4-6 times a day for pain Salt water gargles, throat lozenges or throat sprays as desired Antibiotic as directed--finished the medication Tylenol for any fever/pain If your symptoms persist, change or worsen significantly before you can contact your personal physician then please, without delay, go to the emergency department for further evaluation. Follow-up with PCP in 7-10 days or sooner if needed Prescriptions: New amoxicillin 875 mg tablet 875 mg PO Q12H Qty: 20 0RF No Action ezetimibe 10 mg tablet 10 mg PO DAILY gabapentin 300 mg capsule 300 mg PO QHS losartan 100 mg tablet 100 mg PO DAILY carvedilol 12.5 mg tablet See Rx Instructions .ROUTE .COMPLEX Rx Instructions: as prescribed budesonide 3 mg capsule,delayed,extend.release 3 mg PO TID Repatha SureClick 140 mg/mL pen injector See Rx Instructions .ROUTE .COMPLEX Rx Instructions: as prescribed Eliquis 5 mg tablet See Rx Instructions .ROUTE .COMPLEX Rx Instructions: as prescribed indapamide 2.5 mg tablet 2.5 mg DIRECTED Fred Car100 Insulin 100 unit/mL solution 56 unit SUB-Q DAILY Rx Instructions: QAM Victoza 2-Stuart 0.6 mg/0.1 mL (18 mg/3 mL) pen injector 1.8 mg SUB-Q DAILY Jardiance 10 mg tablet 2.5 mg PO DAILY insulin aspart U-100 [Novolog FlexPen U-100 Insulin] 100 unit/mL (3 mL) insulin pen 10 unit SUBCUT TID Follow-up/Referrals: Jaden,Mu Ortega MD [Primary Care Provider] - Time of Disposition: 12:55 Quality Heriberto Coma Scale Eyes: Open Verbal: Oriented and Alert Motor: Follows Commands [place] Coma Total Score: 15
[2024-07-01 12:38] LABS: EDCOVIDSCREEN Negative (Negative); EDINFLUASCREEN Negative (Negative); EDINFLUBSCREEN Negative (Negative); EDSTREPNEGPOS1 Negative (Negative)
== END 2024-07-01 13:00 | disposition home or self-care (01) ==
PROVIDERS: Emergency Provider Registered Nurse; PCP Internal Medicine
DX: J06.9 Acute upper respiratory infection, unspecified (principal); J02.9 Acute pharyngitis, unspecified; Z20.822 Contact with and (suspected) exposure to COVID-19; Z87.891 Personal history of nicotine dependence; I25.10 Atherosclerotic heart disease of native coronary artery without angina pectoris; I10 Essential (primary) hypertension; E11.51 Type 2 diabetes mellitus with diabetic peripheral angiopathy without gangrene; Z79.4 Long term (current) use of insulin; Z96.82 Presence of neurostimulator; Z95.820 Peripheral vascular angioplasty status with implants and grafts; Z96.641 Presence of right artificial hip joint
CPT/HCPCS: 71046; 87081; 87426; 87804; 87880; 99213; G0463

== ENCOUNTER 2024-08-20 14:51 | Emergency (ER) | payer MEDICARE, SELFPAY ==
--- OUTSIDE RECORDS SUMMARY | 2024-08-20 14:54 | XMS_ITS | Patient Health Summary ---
Author Organization [facility] Address [address] [place] [address] Care Team Providers Care Clinical Education Consultant Name Role Phone Eh Stanley MD Primary Care Provider [phone] [facility],non-owned Affiliates and Associated Physician Practices is amultiple site organization consisting of ambulatory clinics and hospital sitesin [place], [place], [place] and [place]. This disclosure is being madepursuant to the Care Everywhere program and may not contain all information available regarding this patient. Last updated 18.[facility] Allergies * Simvastatin(Myalgias) Medications * Be aware that medications may not be up to date on this document. Alwaysverify current medications with the patient. * gabapentin (Neurontin) 300 MG capsule Take 1 (one) capsule by mouth at bedtime * Victoza 18 MG/3ML pen Inject 1.8 mg subcutaneously once daily * insulin glargine (Lantus/Semglee) 100 units/ml injection Inject 56 (fifty six) Units subcutaneously once daily * baclofen (Lioresal) 10 MG tablet Take 2 (two) tablets by mouth at bedtime * budesonide (Entocort EC) 3 MG capsule(Started 12/02/2023) Take 3 (three) capsules by mouth every morning * carvedilol (Coreg) 12.5 MG tablet Take 1 (one) tablet by mouth 2 times daily with morning and evening meal * empagliflozin (Jardiance) 10 MG tablet Take 1 (one) tablet by mouth once daily * ezetimibe (Zetia) 10 MG tablet(Started 12/14/2023) Take 1 (one) tablet by mouth once daily * insulin aspart (NovoLOG) FlexPen(Started 09/25/2023) Inject 10 (ten) Units subcutaneously daily before dinner * losartan (Cozaar) 100 MG tablet Take 1 (one) tablet by mouth once daily * mesalamine EC (Lialda) 1.2 g tablet(Started 08/04/2023) Take 2 (two) tablets by mouth daily with breakfast * Eliquis 5 MG tablet(Started 04/15/2024) Take 1 (one) tablet by mouth 2 times daily 3 refills by 04/15/2025 Active Problems Problem Noted Date Diagnosed Date PAD (peripheral artery disease) 01/20/2024 Social History Tobacco Use Types Packs/Day Years Used Date Smoking Tobacco: Former Cigarettes Q uit: 2000 Smokeless Tobacco: Never Tobacco Cessation:Counseling Given: No Alcohol Use Standard Drinks/Week Comments Never 0 (1 standard drink = 0.6 oz pur e alcohol) Sex and Gender Information Value Date Recorded Sex Assigned at Not on file Gender Identity Male 01/20/2024 11:01 AM CDT Sexual Orientation Not on file Last Filed Vital Signs Vital Sign Reading Time Taken Comments Blood Pressure - - Pulse - - Temperature - - Respiratory Rate - - Oxygen Saturation - - Inhaled Oxygen Concentration - - Weight 86.2 kg (190 lb) 07/13/2024 11:24 AM SHIRT MAKER Height 175.3 cm (5' 9.02 ) 07/13/2024 11:24 AM C Body Mass Index 28.05 07/13/2024 11:24 AM SHIRT MAKER Procedures * VAS RIGHT ARTERIAL DUPLEX LE(Performed 07/13/2024) Performed for PAD (peripheral artery disease) ([facility]) * VAS ARTERIAL ANKLE ARM INDEX(Performed 07/13/2024) Performed for PAD (peripheral artery disease) ([facility]) * VAS RIGHT ARTERIAL DUPLEX LE(Performed 01/20/2024) Performed for Claudication in peripheral vascular disease ([facility]) * VAS ARTERIAL ANKLE ARM INDEX(Performed 01/20/2024) Performed for Claudication in peripheral vascular disease ([facility]) * DERMATOPATHOLOGY(Performed 08/20/2023) * DERMATOPATHOLOGY(Performed 11/26/2022) * DERMATOPATHOLOGY(Performed 06/29/2014) * DERMATOPATHOLOGY(Performed 05/04/2014) Results * VAS ARTERIAL ANKLE ARM INDEX (07/13/2024 11:18 AM SHIRT MAKER) Only the most recent of2 resultswithin the time period is included. Anatomical Region Laterality Modality Ankle / Foot, Upper Extremity Ul trasound 07/13/2024 10:5 2 AM SHIRT MAKER Narrative Procedure Note Alex Sandoval MD - 07/14/2024 [facility] [place] [address], [address] [place] [address] Lower Extremity Arterial Doppler Report Pat.Name: JOHN RIVERA Pat.ID: [id number] St.Date: 07/13/2024 Exam Time: 10:52:00 AM Study Type:SUGAR/PVR Age: 10 1950,74Y Sex: MALE Sonogrphr: yonis Larson rvt Pat. Stat.:Outpatient CPT - 4: 25305 Reason for Study: Pain -Leg, left, Follow up surgery Procedures: Ankle Arm Index Race: UNAVAILABLE Visit ID: [id number] ++++++++++++++++++++++++++++++++++++ SUMMARY: ++++++++++++++++++++++++++++++++++++ SUGAR are inconclusive due to noncompressible vessels. Waveforms are well preserved at the ankles bilaterally. ++++++++++++++++++++++++++++++++++++ FINDINGS: ++++++++++++++++++++++++++++++++++++ Procedure: The arterial vasculature of the lower extremities was evaluated by analysis of Doppler pressures and waveforms obtained in the legs at rest. Study Quality: This study is of adequate technical quality. SUGAR: Unable to obtain accurate right Posterior Tibial and Dorsalis Pedis arteries pressures due to non-compressible arteries. Unable to obtain accurate left Posterior Tibial and Dorsalis Pedis arteries pressures due to non-compressible arteries. Rt ankle brachial index is 1.7. Left ankle brachial index is 1.6 (normal greater than 0.90). Arterial doppler waveforms of the right POT FIREMAN are absent. Arterial doppler waveforms of the right DPA are triphasic. Arterial doppler waveforms of the left POT FIREMAN are biphasic. Arterial doppler waveforms of the left DPA are triphasic. ++++++++++++++++++++++++++++++++++++ MEASUREMENTS: ++++++++++++++++++++++++++++++++++++ PRESSURES Right SUGAR (DP) SUGAR (DP) 1.7 Right Ankle DP AnkleDP P 204 mmHg Right Brachial Brach P 117 mmHg Left 1st Digit GreatToe P 37 mmHg Left SUGAR (DP) SUGAR (DP) 1.4 Left SUGAR (PT) SUGAR (PT) 1.6 Left Ankle DP AnkleDP P 163 mmHg Left Ankle PT AnklePT P 184 mmHg Left DBI DBI 0.32 Signed 07/14/2024 05:21 PM Alex Sandoval MD Alex Sandoval MD VASCULAR LAB ORDERAB LES * VAS RIGHT ARTERIAL DUPLEX LE (07/13/2024 11:18 AM SHIRT MAKER) Only the most recent of2 resultswithin the time period is included. Anatomical Region Laterality Modality Lower Extremity Ultrasound 07/13/2024 12:4 0 PM SHIRT MAKER Narrative Procedure Note Alex Sandoval MD - 07/14/2024 [facility] [place] [address], [address] [place] [address] Lower Extremity Arterial Ultrasound Report Pat.Name: MIGUEL JOHN Ella Pat.ID: [id number] St.Date: 07/13/2024 Refer.: ANAMARIA RODRIGUEZ Exam Time: 12:40:00 PM Study Type:LE Arterial Age: 10 1950,74Y Sex: MALE Sonogrphr: Clement Larson RVT Pat. Stat.:Outpatient CPT - 4: 36529 Reason for Study: Pain -Leg, left, Follow up surgery Procedures: LE Bypass Graft Race: UNAVAILABLE Visit ID: [id number] ++++++++++++++++++++++++++++++++++++ SUMMARY: ++++++++++++++++++++++++++++++++++++ Patent right femoral to popliteal graft is seen. No elevations in velocities seen within the graft. ++++++++++++++++++++++++++++++++++++ FINDINGS: ++++++++++++++++++++++++++++++++++++ Procedure: B-mode imaging, color flow Doppler and spectral analysis were used to image the right Fem-Pop graft. Study Quality: This study is of adequate technical quality. Graft: The right Fem-Pop graft was patent. ++++++++++++++++++++++++++++++++++++ MEASUREMENTS: ++++++++++++++++++++++++++++++++++++ DOPPLER Right HOT CAR OPERATOR HOT CAR OPERATOR Prox PSV 113 cm/s Right Iliac Dist Iliac Dist PSV 120 cm/s Signed 07/14/2024 05:21 PM Alex Sandoval MD Alex Sandoval MD VASCULAR LAB ORDERAB LES * DERMATOPATHOLOGY (08/20/2023 3:33 AM SHIRT MAKER) Only the most recent of4 resultswithin the time period is included. Case Report Dermatopathology Report ? Case: [id number] ? Authorizing Provider: ??Nestor Gillis MD ?Collected: ? 08/20/2023 03:33 AM ? Ordering Location: ? [facility] ? Received: ?08/25/2023 07:43 AM ? Pathologist: ? Emily Billings MD ? Specimen: ?Skin, right ear helix rim ? 4 2:11 PM [facility] DERMATOPATH[facility]Y [facility]ORAT[facility] Final Diagnosis Specimen A. 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 The specimen consists of a(3) pieces shave biopsy measuring 8x6x3, 3x5x1, 4x5x1 mm. Jar 0. 4 2:11 PM [facility] DERMATOPATHOLOGY [facility] Microscopic Description Specimen A. SKIN, right ear helix rim: The epidermis shows parakeratosis, full thickness disorderly maturation of keratinocytes, mitoses at different levels, and dyskeratotic cells. 4 2:11 PM [facility] DERMATOPATHOLOGY [facility] Disclaimer An external and internal positive and negative controls are appropriate for the histochemical, immunohistochemical and immunofluorescence stain(s) in this case (if any), except where stated explicitly. The performance characteristics of the stain(s) cited in this report were developed and its performance characteristic determined by the Dermatopathology Laboratory at [facility], directed by Dr. Sepideh Arrington. These tests need not be, and therefore are not, approved by the [place] Food and Drug Administration. The tests are used for clinical purposes. Billing Codes Specimen Charges Stain Charges 86841 1 4 2:11 PM [facility] DERMATOPATHOLOGY LABORATORY Embedded Images 4 2:11 PM [facility] DERMATOPATHOLOGY LABORATORY Pathology/Cytolo gy TISSUE SPECIMEN FROM SKIN / Unknown 08/20/2023 3:33 AM SHIRT MAKER 08/25/2023 7:43 AM SHIRT MAKER Nestor Gillis MD LAB - PATHOLOGY/CYTO LOGY ORDERABLES DERMATOPATHOLOGY LABORATORY [facility] - Department of [facility] [address] [place] [address], [address] [phone] Care Teams Clinical Education Consultant Relationship Specialty Start Date End Date Eh Stanley MD [address] [place] [address] PCP - General Internal Medicine 01/20/24
--- OUTSIDE RECORDS SUMMARY | 2024-08-20 14:54 | XMS_ITS | Encounter Summary ---
Author Organization [facility] Address [address] [place] [address] Care Team Providers Care Semi Automatic Sewing Machine Operator Name Role Phone Eh Stanley MD Primary Care Provider [phone] Encounter Details Date Type Department Care Team (Latest Contact Info) Description 05/02/2005 Outpatient Historical [facility],NON-PATIENT Prakash Beltran MD [address] [facility] [address] [place] [address] MALIG NEOPLASM LIP/VERMIL NOS (Primary Dx) Social History Tobacco Use Types Packs/Day Years Used Date Smoking Tobacco: Never Assessed Sex and Gender Information Value Date Recorded Sex Assigned at Not on file Legal Sex Male 5:26 AM STRIP POLISHER Gender Identity Not on file Sexual Orientation Not on file documented as of this encounter Plan of Treatment Not on file documented as of this encounter Visit Diagnoses Diagnosis Malignant neoplasm of lip, unspecified, vermilion border- Primary documented in this encounter Care Teams Semi Automatic Sewing Machine Operator Relationship Specialty Start Date End Date Eh Stanley MD [address] [id number] PCP - General Internal Medicine 05/06/23 documented as of this encounter
--- OUTSIDE RECORDS SUMMARY | 2024-08-20 14:54 | XMS_ITS | Encounter Summary ---
Author Organization [facility] Address [address] [facility] [place] [address] Care Team Providers Care Retort Condenser Attendant Name Role Phone Eh Stanley MD Primary Care Provider [phone] [phone] Encounter Details Date Type Department Care Team (Late Contact Info) Description 08/25/2023 Lab Requisition [facility] - DermPath Lab [address] [place] [address] Nestor Gillis MD [address] [place] [address] Social History Tobacco Use Types Packs/Day Years Used Date Smoking Tobacco: Never Assessed Sex and Gender Information Value Date Recorded Sex Assigned at Not on file Gender Identity Male 01/20/2024 11:01 AM CDT Sexual Orientation Not on file documented as of this encounter Plan of Treatment Upcoming Encounters Date Type Department Care Team (Late Contact Info) Description 07/05/2025 11:00 AM LOGISTICS ASSOCIATE Appointment [facility] Vascular Services [address] [place] [address], [facility] [address] [place], [place] [id number] 07/05/2025 11:30 AM LOGISTICS ASSOCIATE Office Visit [facility] - Surgery [address] [place] [address], [address] [place] [address] Alex Sandoval MD [address] [place] [address] [address] [place] [address] documented as of this encounter Procedures Procedure Name Priority Date/Time Associated Diagnosis Comments DERMATOPATHOLOGY Routine 08/20/2023 3:33 AM LOGISTICS ASSOCIATE documented in this encounter Results * DERMATOPATHOLOGY (08/20/2023 3:33 AM [facility]) Case Report Dermatopathology Report ? Case: [id number] ? Authorizing Provider: ??Nestor Gillis MD ?Collected: ? 08/20/2023 03:33 AM ? Ordering Location: ? [facility] DermPath Lab ? Received: ?08/25/2023 07:43 AM ? Pathologist: ? Emily Billings MD ? Specimen: ?Skin, right ear helix rim ? 4 2:11 PM [facility] DERMATOPATHOLOGY LABORATORY Final Diagnosis Specimen A. 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 The specimen consists of a(3) pieces shave biopsy measuring 8x6x3, 3x5x1, 4x5x1 mm. Jar 0. 4 2:11 PM [facility] DERMATOPATHOLOGY LABORATORY Microscopic Description Specimen A. SKIN, right ear helix rim: The epidermis shows parakeratosis, full thickness disorderly maturation of keratinocytes, mitoses at different levels, and dyskeratotic cells. 4 2:11 PM [facility] DERMATOPATHOLOGY LABORATORY Disclaimer An external and internal positive and negative controls are appropriate for the histochemical, immunohistochemical and immunofluorescence stain(s) in this case (if any), except where stated explicitly. The performance characteristics of the stain(s) cited in this report were developed and its performance characteristic determined by the Dermatopathology Laboratory at [facility], directed by Dr. Sepideh Arrington. These tests need not be, and therefore are not, approved by the [place] Food and Drug Administration. The tests are used for clinical purposes. Billing Codes Specimen Charges Stain Charges 27139 1 4 2:11 PM [facility] DERMATOPATHOLOGY LABORATORY Embedded Images 4 2:11 PM [facility] DERMATOPATHOLOGY LABORATORY Pathology/Cytolo gy TISSUE SPECIMEN FROM SKIN / Unknown 08/20/2023 3:33 AM LOGISTICS ASSOCIATE 08/25/2023 7:43 AM [facility] Nestor Gillis MD LAB - PATHOLOGY/CYTO LOGY ORDERABLES DERMATOPATHOLOGY LABORATORY [facility] - Department of Dermatology [facility] [address] [place] [address], [address] [phone] documented in this encounter Visit Diagnoses Not on filedocumented in this encounter Care Teams Retort Condenser Attendant Relationship Specialty Start Date End Date Eh Stanley MD [address] [place] [address] PCP - General Internal Medicine 01/20/24 documented as of this encounter
--- OUTSIDE RECORDS SUMMARY | 2024-08-20 14:54 | XMS_ITS | Referral Summary ---
Author Organization [facility] Address [address] [facility] [place] [address] Care Team Providers Care Canceling Machine Operator Name Role Phone Eh Stanley MD Primary Care Provider [phone] Source Comments [facility],non-owned Affiliates and Associated Physician Practices is amultiple site organization consisting of ambulatory clinics and hospital sitesin [place], [place], [place] and [place]. This disclosure is being madepursuant to the Care Everywhere program and may not contain all information available regarding this patient. Last updated 18.[facility] Encounters Date Type Department Care Team Description 07/13/2024 Travel 07/13/2024 10:00 AM TEST SKEIN WINDER - 07/13/2024 11:59 PM TEST SKEIN WINDER Hospital Encounter [facility] Vascular Services [address] [place] [address], [address] [place] [address] Rolo Gagnon MD Discharge Disposition: Home or Self Care 07/13/2024 10:30 AM TEST SKEIN WINDER Office Visit [facility] Group - Surgery [address] [place] [address], [address] [place] [id number] Alex Sandoval MD PAD (peripheral artery disease) (HCC) (Primary Dx) from Last 3 Months Allergies Active Allergy Reactions Criticality Noted Date Comments Simvastatin Myalgias 01/20/2024 Reaction: Myalgias, Medications * Be aware that medications may not be up to date on this document. Alwaysverify current medications with the patient. Medication Sig Dispensed Refills Start Date End Date Status gabapentin (Neurontin) 300 MG capsule Take 1 (one) capsule by mouth at bedtime Active Victoza 18 MG/3ML pen Inject 1.8 mg subcutaneously once daily Active insulin glargine (Lantus/Semglee) 100 units/ml injection Inject 56 (fifty six) Units subcutaneously once daily Active baclofen (Lioresal) 10 MG tablet Take 2 (two) tablets by mouth at bedtime Active budesonide (Entocort EC) 3 MG capsule Take 3 (three) capsules by mouth every morning 12/02/2023 12/01/2024 Active carvedilol (Coreg) 12.5 MG tablet Take 1 (one) tablet by mouth 2 times daily with morning and evening meal Active empagliflozin (Jardiance) 10 MG tablet Take 1 (one) tablet by mouth once daily Active ezetimibe (Zetia) 10 MG tablet Take 1 (one) tablet by mouth once daily 12/14/2023 Active insulin aspart (NovoLOG) FlexPen Inject 10 (ten) Units subcutaneously daily before dinner 09/25/2023 Active losartan (Cozaar) 100 MG tablet Take 1 (one) tablet by mouth once daily Active mesalamine EC (Lialda) 1.2 g tablet Take 2 (two) tablets by mouth daily with breakfast 08/04/2023 Active Eliquis 5 MG tabletIndication s:PAD (peripheral artery disease) (HCC) Take 1 (one) tablet by mouth 2 times daily 360 tablet 3 04/15/2024 Active Active Problems Problem Noted Date Diagnosed Date [...] 86.2 kg (190 lb) 07/13/2024 11:24 AM TEST SKEIN WINDER Height 175.3 cm (5' 9.02 ) 07/13/2024 11:[address] Body Mass Index 28.05 07/13/2024 11:24 AM TEST SKEIN WINDER Plan of Treatment Upcoming Encounters Date Type Department Care Team (Late st Contact Info) Description 07/05/2025 11:00 AM TEST SKEIN WINDER Appointment [facility] Vascular Services [address] [place] [address], [address] [place] [address] 07/05/2025 11:30 AM TEST SKEIN WINDER Office Visit [facility] - Surgery [address] [place] [address], [address] [place] [address] [place] [address] [facility] [address] [place] [address] Procedures Procedure Name Priority Date/Time Associated Diagnosis Comments VAS RIGHT ARTERIAL DUPLEX LE Routine 07/13/2024 11:18 AM TEST SKEIN WINDER PAD (peripheral artery disease) (HCC) VAS ARTERIAL ANKLE ARM INDEX Routine 07/13/2024 11:18 AM TEST SKEIN WINDER PAD (peripheral artery disease) (HCC) from Last 3 Months Results * VAS ARTERIAL ANKLE ARM INDEX (07/13/2024 11:18 AM TEST SKEIN WINDER) Anatomical Region Laterality Modality Ankle / Foot, Upper Extremity Ul trasound 07/13/2024 10:5 2 AM TEST SKEIN WINDER Narrative Procedure Note Alex Sandoval MD - 07/14/2024 [facility] Vascular [place] [address], [address] [place] [address] Lower Extremity Arterial Doppler Report Pat.Name: JOHN RIVERA.ID: [id number] .Date: 07/13/2024 Exam Time: 10:52:00 AM Study Type:SUGAR/PVR Age: 10 1950,74Y Sex: MALE Sonogrphr: yonis Larson rvt Pat. Stat.:Outpatient CPT - 4: 73208 Reason for Study: Pain -Leg, left, Follow up surgery Procedures: Ankle Arm Index Race: UNAVAILABLE Visit ID: [id number] ++++++++++++++++++++++++++++++++++++ SUMMARY: ++++++++++++++++++++++++++++++++++++ SUGAR are inconclusive due [...] 0.90). Arterial doppler waveforms of the right NAPHTHOL SOAPING MACHINE OPERATOR are absent. Arterial doppler waveforms of the right DPA are triphasic. Arterial doppler waveforms of the left NAPHTHOL SOAPING MACHINE OPERATOR are biphasic. Arterial doppler waveforms of the [...] DBI 0.32 Signed 07/14/2024 05:21 PM Alex Sandovla MD Alex Sadnoval MD VASCULAR LAB ORDERAB LES * VAS RIGHT ARTERIAL DUPLEX LE (07/13/2024 11:18 AM TEST SKEIN WINDER) Anatomical Region Laterality Modality Lower Extremity Ultrasound 07/13/2024 12:4 0 PM TEST SKEIN WINDER Narrative Procedure Note Alex Sandoval MD - 07/14/2024 [facility] [place] [address], [address] [place] [address] Lower Extremity Arterial Ultrasound Report Pat.Name: JOHN RIVERA Pat.ID: [id number] .Date: 07/13/2024 Refer.MD: ANAMARIA RODRIGUEZ Exam Time: 12:40:00 PM Study Type:LE Arterial Age: 10 1950,74Y Sex: MALE Sonogrphr: Clement Larson RVT Pat. Stat.:Outpatient CPT - 4: 73892 Reason for Study: Pain -Leg, left, Follow up surgery Procedures: LE Bypass Graft Race: UNAVAILABLE Visit ID: [id number] ++++++++++++++++++++++++++++++++++++ SUMMARY: ++++++++++++++++++++++++++++++++++++ Patent right femoral to popliteal graft is seen. No elevations in velocities seen within the graft. ++++++++++++++++++++++++++++++++++++ FINDINGS: ++++++++++++++++++++++++++++++++++++ Procedure: B-mode imaging, color flow Doppler and spectral analysis were used to image the right Fem-Pop graft. Study Quality: This study is of adequate technical quality. Graft: The right Fem-Pop graft was patent. ++++++++++++++++++++++++++++++++++++ MEASUREMENTS: ++++++++++++++++++++++++++++++++++++ DOPPLER Right WWE WRESTLER WWE WRESTLER Prox PSV 113 cm/s Right Iliac Dist Iliac Dist PSV 120 cm/s Signed 07/14/2024 05:21 PM Alex Sandoval MD Alex Sandoval MD VASCULAR LAB ORDERAB LES from Last 3 Months Care Teams Canceling Machine Operator Relationship Specialty Start Date End Date Eh Stanley MD [address] [place] [address] PCP - General Internal Medicine 01/20/24
--- OUTSIDE RECORDS SUMMARY | 2024-08-20 14:54 | XMS_ITS | Clinical Summary ---
Author Organization [facility] Address [address] [facility] [place] [address] Care Team Providers Care Hydrogeology Professor Name Role Phone Eh Stanley MD Primary Care Provider [phone] Source Comments [facility],non-owned Affiliates and Associated Physician Practices is amultiple site organization consisting of ambulatory clinics and hospital sitesin [place], [place] and [place]. This disclosure is being madepursuant to the Care Everywhere program and may not contain all information available regarding this patient. Last updated 18.[facility] Allergies Active Allergy Reactions Criticality Noted Date [...] Diagnosed Date PAD (peripheral artery disease) 01/20/2024 Encounters Date Type Department Care Team Description 07/13/2024 10:30 AM LIME KILN TENDER Office Visit [facility] Medical Group - Surgery [address] [place] [address], [address] [place] [address] Alex Sandoval MD PAD (peripheral artery disease) (HCC) (Primary Dx) 07/13/2024 10:00 AM LIME KILN TENDER - 07/13/2024 11:59 PM LIME KILN TENDER Hospital Encounter [facility] Vascular Services [address] [place] [address], [address] [place] [address] Rolo Gagnon MD Discharge Disposition: Home or Self Care 07/13/2024 Travel from Last 3 Months Social History Tobacco Use Types Packs/Day Years [...] 86.2 kg (190 lb) 07/13/2024 11:24 AM LIME KILN TENDER Height 175.3 cm (5' 9.02 ) 07/13/2024 11:[address] Body Mass Index 28.05 07/13/2024 11:24 AM LIME KILN TENDER Plan of Treatment Upcoming Encounters Date Type Department Care Team (Late st Contact Info) Description 07/05/2025 11:00 AM LIME KILN TENDER Appointment [facility] Health Vascular Services [address] [facility], [address] [place], [place] [id number] 07/05/2025 11:30 AM LIME KILN TENDER Office Visit [facility] Health Medical Group - Surgery [address], [address] [place] [address] [place] [address] [facility] [address] [place] [address] Health Maintenance Due Date Last Done Comments COLOGUARD (AGES 45-75) - COLON CA SCREENING [address] COLONOGRAPHY - COLON CA SCREENING 1950 FIT - COLON CA SCREENING 1950 FLEX SIG - COLON CA SCREENING 1950 LIPID TESTING 1950 HEPATITIS C SCREENING 04/22/1969 DTAP/TDAP/TD VACCINES (1 - Tdap) 1970 PNEUMOCOCCAL VACCINE 50+ (1 of 1 - PCV) 2001 ZOSTER VACCINE (1 of 2) 2001 Respiratory Syncytial Virus (RSV) Vaccine Pt: or over 60 yrs (1 - Risk 60-74 years 1-dose series) 2011 AAA SCREENING 2016 COVID-19 VACCINE ( - 2023- season) 2024 INFLUENZA VACCINE (#1) 2024 7, 05/02/2016, 05/16/2015, Additional history exists DEPRESSION SCREENING 07/28/2024 MEDICARE AWV ? CALENDAR YEAR 2024 COLONOSCOPY - COLON CA SCREENING 05/27/2032 05/27/2022 Colorectal Cancer Screening 05/27/2032 HEPATITIS B VACCINE Aged Out No longe r eligible based on patient's age to complete this topic HIB VACCINE Aged Out No longer eligi ble based on patient's age to complete this topic HPV VACCINE Aged Out No longer eligi ble based on patient's age to complete this topic MENINGOCOCCAL (Group B) VACCINE Aged Out No longer eligible based on patient's age to complete this topic MENINGOCOCCAL VACCINE Aged Out No félix jack eligible based on patient's age to complete this topic Procedures Procedure Name Priority Date/Time Associated Diagnosis Comments VAS RIGHT ARTERIAL DUPLEX LE Routine 07/13/2024 11:18 AM LIME KILN TENDER PAD (peripheral artery disease) (HCC) VAS ARTERIAL ANKLE ARM INDEX Routine 07/13/2024 11:18 AM LIME KILN TENDER PAD (peripheral artery disease) (HCC) from Last 3 Months Results * VAS ARTERIAL ANKLE ARM INDEX (07/13/2024 11:18 AM LIME KILN TENDER) Anatomical Region Laterality Modality Ankle / Foot, Upper Extremity Ul trasound 07/13/2024 10:5 2 AM LIME KILN TENDER Narrative Procedure Note Alex Sandoval MD - 07/14/2024 [facility] [place] [address], [address] [place] [address] Lower Extremity Arterial Doppler Report Pat.Name: MIGUEL JOHN Ella Mcnamara.ID: [id number] .Date: 07/13/2024 Exam Time: 10:52:00 AM Study Type:SUGAR/PVR Age: 10 1950,74Y Sex: MALE Sonogrphr: yonis Larson rvartemio Pat. Stat.:Outpatient CPT - 4: 60411 Reason for Study: Pain -Leg, left, Follow up surgery Procedures: Ankle Arm Index Race: UNAVAILABLE Visit ID: [id number] ++++++++++++++++++++++++++++++++++++ SUMMARY: ++++++++++++++++++++++++++++++++++++ SUGAR are inconclusive due [...] 0.90). Arterial doppler waveforms of the right DAYLIGHT DRILLER are absent. Arterial doppler waveforms of the right DPA are triphasic. Arterial doppler waveforms of the left DAYLIGHT DRILLER are biphasic. Arterial doppler waveforms of the [...] RIGHT ARTERIAL DUPLEX LE (07/13/2024 11:18 AM LIME KILN TENDER) Anatomical Region Laterality Modality Lower Extremity Ultrasound 07/13/2024 12:4 0 PM LIME KILN TENDER Narrative Procedure Note Alex Sandoval MD - 07/14/2024 [facility] [place] [address], [address] [place] [address] Lower Extremity Arterial Ultrasound Report Pat.Name: JOHN RIVERA Ella Mcnamara.ID: [id number] St.Date: 07/13/2024 Refer.: ANAMARIA RODRIGUEZ Exam Time: 12:40:00 PM Study Type:LE Arterial Age: 10 1950,74Y Sex: MALE Sonogrphr: Clement Larson RVT Pat. Stat.:Outpatient CPT - 4: 49915 Reason for Study: Pain -Leg, left, Follow up surgery Procedures: LE Bypass Graft Race: UNAVAILABLE Visit ID: [id number] ++++++++++++++++++++++++++++++++++++ SUMMARY: ++++++++++++++++++++++++++++++++++++ Patent right femoral to popliteal graft is seen. No elevations in velocities seen within the graft. ++++++++++++++++++++++++++++++++++++ FINDINGS: ++++++++++++++++++++++++++++++++++++ Procedure: B-mode imaging, color flow Doppler and spectral analysis were used to image the right Fem-Pop graft. Study Quality: This study is of adequate technical quality. Graft: The right Fem-Pop graft was patent. ++++++++++++++++++++++++++++++++++++ MEASUREMENTS: ++++++++++++++++++++++++++++++++++++ DOPPLER Right STRIP FEEDER STRIP FEEDER Prox PSV 113 cm/s Right Iliac Dist Iliac Dist PSV 120 cm/s Signed 07/14/2024 05:21 PM Alex Sandoval MD Alex Sandoval MD VASCULAR LAB ORDERAB LES from Last 3 Months Care Teams Hydrogeology Professor Relationship Specialty Start Date End Date Eh Stanley MD [address] [place] [address] PCP - General Internal Medicine 01/20/24
--- OUTSIDE RECORDS SUMMARY | 2024-08-20 14:54 | XMS_ITS | Encounter Summary ---
Author Organization [facility] Address [address] [facility] [place] [address] Care Team Providers Care Lens Blank Gauger Name Role Phone Eh Stanley MD Primary Care Provider [phone] Encounter Details Date Type Department Care Team (Late Contact Info) Description 11/27/2022 Lab Requisition [facility] Care DermPath Lab [address] [place] [address] Nestor Gillis MD [address] [place] [address] Social History Tobacco Use Types Packs/Day Years Used Date Smoking Tobacco: Never Assessed Sex and Gender Information Value Date Recorded Sex Assigned at Not on file Gender Identity Male 01/20/2024 11:01 AM CDT Sexual Orientation Not on file documented as of this encounter Plan of Treatment Upcoming Encounters Date Type Department Care Team (Late Contact Info) Description 07/05/2025 11:00 AM OFFICE MANAGER EXECUTIVE ASSISTANT Appointment [facility] Vascular Services [address] [place] [address], [address] [place], [place] [id number] 07/05/2025 11:30 AM OFFICE MANAGER EXECUTIVE ASSISTANT Office Visit [facility] Medical Group - Surgery [address] [place] [address], [address] [place] [address] Alex Sandoval MD [address] [place] [address] [address] [place] [address] documented as of this encounter Procedures Procedure Name Priority Date/Time Associated Diagnosis Comments DERMATOPATHOLOGY Routine 11/26/2022 12:0 0 AM CDT documented in this encounter Results * DERMATOPATHOLOGY (11/26/2022 12:00 AM CDT) Case Report Dermatopathology Report ? Case: [id number] ? Authorizing Provider: ??Nestor Gillis MD ?Collected: ? 11/26/2022 12:00 AM ? Ordering Location: ? [facility] DermPath Lab ?Received: ?11/27/2022 04:15 PM ? Pathologist: ? Emily Billings MD ? Specimen: ?Skin, right forehead ? 3 12:47 PM CDT DERMATOPATHOLOGY LABORATORY Final Diagnosis Specimen A. SKIN, right forehead: SEBACEOUS HYPERPLASIA (L73.8) PRESENT AT MARGIN 3 12:47 PM CDT DERMATOPATHOLOGY LABORATORY Clinical History R/O BCC 3 12:47 PM CDT DERMATOPATHOLOGY LABORATORY Gross Description Specimen A: Received is one formalin filled container labeled with the patients name and designated right forehead. The specimen consists of a shave removal measuring 5x5x1 mm. Jar 0. 3 12:47 PM CDT DERMATOPATHOLOGY LABORATORY Microscopic Description Specimen A. SKIN, right forehead: There are prominent sebaceous gland lobules surrounding a dilated hair follicle. This lesion is present at the margin of the specimen. 3 12:47 PM CDT DERMATOPATHOLOGY LABORATORY Disclaimer An external and internal positive and negative controls are appropriate for the histochemical, immunohistochemical and immunofluorescence stain(s) in this case (if any), except where stated explicitly. The performance characteristics of the stain(s) cited in this report were developed and its performance characteristic determined by the Dermatopathology Laboratory at [facility], directed by Dr. Sepideh Arrington. These tests need not be, and therefore are not, approved by the [place] Food and Drug Administration. The tests are used for clinical purposes. Billing Codes Specimen Charges Stain Charges 87095 1 3 12:47 PM CDT DERMATOPATHOLOGY LABORATORY Embedded Images 3 12:47 PM CDT DERMATOPATHOLOGY LABORATORY Pathology/Cytolog y TISSUE SPECIMEN FROM SKIN / Unknown 11/26/2022 11/27/2022 4:15 PM CDT Nestor Gillis MD LAB - PATHOLOGY/CYTO LOGY ORDERABLES DERMATOPATHOLOGY LABORATORY [facility] - Department of Dermatology [facility] Specialized Medicine [address] [place] [address], [address] [phone] documented in this encounter Visit Diagnoses Not on filedocumented in this encounter Care Teams Lens Blank Gauger Relationship Specialty Start Date End Date Eh Stanley MD [address] [place] [address] PCP - General Internal Medicine 01/20/24 documented as of this encounter
--- OUTSIDE RECORDS SUMMARY | 2024-08-20 14:54 | XMS_ITS | CONTINUITY OF CARE DOCUMENT ---
Author Name smith mtz Address Unknown Organization [facility] Address [address] [place] [address] Phone [phone] Care Team Providers Care Casing Operator Name Role Phone Jeffrey NUNEZ, Javi Unavailable MARCELL NUNEZ, MARSHALL Unavailable [phone] MARSHALL FAITH MD Unavailable [phone] INSURANCE PROVIDERS Payer name Policy type / Coverage type Holt red democrat ID [facility] MEDICARE ADVANTAGE (PPO) Other [id number]
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
--- OUTSIDE RECORDS SUMMARY | 2024-08-20 14:55 | XMS_ITS | Clinical Summary ---
Author Organization [facility] Address [address] [place] [address] Care Team Providers Care Sap Bw Bi Developer Name Role Phone Eh Stanley MD Primary Care Provider + Alex Sandoval MD Unavailable Vicente Cason MD Unavailable [phone] Allergies Active Allergy Reactions Criticality Noted Date Comments Simvastatin Muscle pain Medium Reaction: Myalgias, Cckuhkr-Dyn-Mvd Reductase Inhibitors Muscle pain,Joint pain Medium Reaction: Joint pain, , Reaction: Myalgias, , Medications lancets (ACCU-CHEK FASTCLIX) misc check blood sugar 3 times daily and as directed 90 each 3 11/25/19 14 Active Additional Information Patient not taking.Reported on 06/15/2024 pen needle, diabetic (UNIFINE PENTIPS PLUS) 31 gauge x 5/16 needle for use with Lantus Solostar, use daily and as directed 100 11 06/12/20 11 Active Additional Information Patient not taking.Reported on 06/15/2024 blood glucose diagnostic (ACCU-CHEK SMARTVIEW TEST STRIP) strip test blood sugar 3 times daily and as directed 300 strip 3 11/25/19 14 Active Additional Information Patient not taking.Reported on 06/15/2024 carvedilol (COREG) 12.5 mg tablet Take 1 tablet (12.5 mg total) by mouth 2 (two) times a day with meals. 180 tablet 3 03/11/20 17 Active liraglutide (VICTOZA) 0.6 mg/0.1 mL (18 mg/3 mL) injectionIndicatio ns:type 2 diabetes mellitus Inject 1.8 mg under the skin daily Indications: type 2 diabetes mellitus Active kiysomsi-xzb-grogw -vit K-lycop 400-20-300 mcg tablet Take 1 tablet by mouth daily. Active nitroglycerin (NITROSTAT) 0.[address] 1 tablet (0.4 mg total) under the tongue every 5 (five) minutes as needed for chest pain Active losartan potassium (LOSARTAN ORAL) Take 150 mg by mouth daily Active insulin glargine (LANTUS) 100 unit/mL injection Inject 56 Units under the skin daily Active Jardiance 10 mg tablet Take 1 tablet (10 mg total) by mouth daily 06/26/20 20 Active Repatha SureClick 140 mg/mL pen injector 3.5 mL (490 mg total) by subcutaneous (via wearable injector) route every 14 (fourteen) days 08/21/19 21 Active Eliquis 5 mg tabletIndications: Claudication (HCC) TAKE 1 TABLET(5 MG) BY MOUTH TWICE DAILY 180 tablet 3 02/11/20 23 Active budesonide EC (ENTOCORT EC) 3 mg 24 hr capsule Take 3 capsules (9 mg total) by mouth every morning 270 capsule 3 12/02/19 24 025 Active oxyCODONE-acetamin ophen (PERCOCET) 5-325 mg per tabletIndications: Pain Take 1-2 tablets by mouth every 4 (four) hours as needed for pain 40 tablet 04/20/20 24 Active Additional Information Patient not taking.Reported on 06/15/2024 ascorbic acid (VITAMIN C) 500 mg tablet,chewableInd ications:Vitamin deficiency prevention Take 1 tablet/chew tab (500 mg total) by mouth daily 30 tablet/chew tab 04/20/20 24 Active ondansetron ODT (ZOFRAN-ODT) 4 mg disintegrating tabletIndications: nausea and vomiting Take 1 tablet (4 mg total) by mouth every 6 (six) hours as needed for nausea or vomiting 20 tablet 2 04/20/20 24 Active Additional Information Patient not taking.Reported on 06/15/2024 senna-docusate (PERICOLACE) 8.6-50 mgIndications:cons tipation Take 2 tablets by mouth 2 (two) times a day 60 tablet 2 04/20/20 24 Active baclofen (LIORESAL) 10 mg tablet Take 2 tablets (20 mg total) by mouth nightly Active ezetimibe (ZETIA) 10 mg tablet Take 1 tablet (10 mg total) by mouth daily 12/14/19 Active gabapentin (NEURONTIN) 300 mg capsule Take 1 capsule (300 mg total) by mouth nightly Active indapamide (LOZOL) 1.25 mg tablet Take 1 tablet (1.25 mg total) by mouth daily Active insulin aspart (NovoLOG) 100 unit/mL (3 mL) pen for injection INJECT 10 UNITS UNDER THE SKIN BEFORE MEALS. TOTAL DAILY DOSE APPROXIMATELY 40 UNITS Active ketorolac (ACULAR) 0.5 % ophthalmic solution INSTILL ONE DROP IN OPERATED EYE THREE TIMES DAILY BEGINNING 3 DAYS BEFORE THE SURGERY 03/26/20 Active melatonin tablet Take 10 tablets (10 mg total) by mouth nightly as needed Active mesalamine (LIALDA) 1.2 gram EC tablet Take 2 Tablets By Mouth Daily with Breakfast 750 tablet 05/31/20 24 Active Active Problems Problem Noted Date Diagnosed Date Ulcerative colitis with complication 05/20/2024 Assessment & Plan (05/29/2024 1:29 PM CDT): Long history of ulcerative colitis. Overall doing well on Lialda 2.4 g daily and budesonide 9 mg daily. To complete evaluation in for worsening diarrhea will proceed with stool testing for C diff, schedule CT scan of the abdomen pelvis, and colonoscopy next year as scheduled. Continue current medications at this time. Aftercare following right hip joint replacement surgery 05/10/2024 History of arterial bypass of lower extremity Assessment & Plan (04/17/2021 12:09 PM CDT): His right leg bypass is widely patent with excellent perfusion at rest bilaterally. We'll monitor his bypass with a repeat Duplex scan with ABIs in six months. Acute respiratory failure with hypoxia (CMS/HCC) 08/27/2020 Shortness of breath 08/26/2020 Pneumonia due to COVID-19 virus 08/25/2020 Claudication 02/24/2018 Overview (02/24/2018): Added automatically from request for surgery [id number] Change in bowel habits 04/14/2017 Assessment & Plan (04/14/2017 3:46 PM CDT): Since nathan has days of alternating C/D. Calculus of gallbladder 07/31/2015 Overview (10/31/2016): Cholelithiasis Chronic coronary artery disease 07/01/2015 Overview (10/31/2016): CAD - Coronary artery disease Coronary arteriosclerosis in [place] artery 05/10 Overview (10/31/2016): Atherosclerosis of [place] coronary artery of [place] heart with angina pectoris Cerebral infarction 11/08/2014 Overview (10/31/2016): CVA (cerebral infarction) Systolic heart failure ([facility] 11/08/2014 Overview (10/31/2016): Systolic heart failure Rosacea 12/11/2013 Overview (11/01/2016): ROSACEA Type 2 diabetes mellitus 12/11/2013 Overview (11/01/2016): DMII WO CMP UNCNTRLD Primary osteoarthritis of left hip 12/11/2013 Overview (11/01/2016): DJD (degenerative joint disease) of hip Peripheral arterial occlusive disease ([facility]) 12/11/2013 Overview (11/01/2016): PVD (peripheral vascular disease) with claudicatio Benign neoplasm of large intestine 12/11/2013 Overview (11/01/2016): BENIGN NEOPLASM LG BOWEL Chronic ulcerative rectosigmoiditis ([facility]) Overview (11/01/2016): ULCERATIVE PROCTITIS Assessment & Plan (03/24/2023 1:38 PM CDT): Well contrlled on lialda and budesonide. Return 6 mos Assessment & Plan (09/24/2022 12:58 PM PORTAL ARCHITECT): CONTINUE present regimen and return prn or 6 mos Assessment & Plan (06/24/2022 1:52 PM PORTAL ARCHITECT): contyinue lialda and increase the budesonide to 9 mg and return 3 mos. Assessment & Plan (07/06/2019 2:23 PM PORTAL ARCHITECT): UC at least to mid ttransverse flare responded immediately to the prodnisone but his blood glu went haywire and vision blurred (however his neuropathy went away). We stopped the po prednisone and he is now asx and maintained on the lialds. disciussed and dismissed biologics for now. With next flare will avoid po prednisone nd consider budesonide. Assessment & Plan (06/15/2019 2:52 PM PORTAL ARCHITECT): 6 weeks ago sudden increase in frequency of bms with blood. This got to many/day and some entirely blood. Recently the frequency hasdecreased to 3/d and the blood has almost disaoppeared. Sounds as if he has had a flare and is getting over it. He is still symptomatic so will begin pred 40/d and recap in 3 weeks. Discussed colonoscopy when flare is over. Osteoarthritis of cervical spine with myelopathy 06/22/2012 Resolved Problems Problem Noted Date Diagnosed Date Resolved Date Primary osteoarthritis of right hip 04/06/2024 05/10/2024 Healthcare maintenance 03/11/201708/23 Medication management 03/11/20172020 Cicatricial ectropion 10/28/20162020 Benign hypertension 12/11/2013 03/11/20 17 Overview (11/01/2016): BENIGN HYPERTENSION Spinal stenosis of cervical region 06/22/2012 08/23/2020 Cervical radiculopathy 09/19/201108/23 Encounters Date Type Department Care Team Description 06/15/2024 9:45 AM PORTAL ARCHITECT Office Visit [facility] Medical [facility] [address] [place] [address] [address] [place] [address] Vicente Cason MD Pre-operative exam (Primary Dx); Aftercare following right hip joint replacement surgery; Aftercare following joint replacement surgery, unspecified joint 06/15/2024 7:41 AM PORTAL ARCHITECT - 06/15/2024 11:59 PM PORTAL ARCHITECT Hospital Encounter [facility] [address] [place] [address] [address] [place] [address] Discharge Disposition: Discharge to home or self care 06/12/2024 8:34 AM PORTAL ARCHITECT - 06/12/2024 11:59 PM PORTAL ARCHITECT Hospital Encounter [facility] [address] [place] [address] Diarrhea of infectious origin; Ulcerative pancolitis with complication (CMS/HCC) (HCC) Discharge Disposition: Discharge to home or self care 05/24/2024 8:00 AM CDT - 05/24/2024 11:59 PM CDT Hospital Encounter [address] Diarrhea of infectious origin Discharge Disposition: Discharge to home or self care 05/20/2024 9:15 AM CDT Office Visit [facility] at [address] [place] [address] Elizabeth Doan MD Ulcerative pancolitis with complication (CMS/HCC) (HCC) (Primary Dx); Diarrhea of infectious origin 05/20/[address] [facility] at [address] [place] [address] Trish Fraga MA from Last 3 Months Immunizations Name Administration Dates Next Due Influenza, Quad, Adjuvantated, Intramuscular Influenza, Quadrivalent, Spl it, Preservative Free, Intramuscular 05/16/2015 Influenza, Split 08/11/2013 Influenza, Trivalent, High D ose, Split, Preservative Free, Intramuscular 07/25/2017,05/02/2016 Influenza, Trivalent, Recomb inant, Egg Free, Preservative Free, Antibiotic Free, IM (FLUBLOK) 05/11/2014,05/11/2014 Tdap 04/19/2009 Surgical History Surgery Date Site/Laterality Comments BACK SURGERY Back Surgery, cyst removed from back CORONARY ARTERY BYPASS GRAFT CABG- 3 vessel LAPAROSCOPIC CHOLECYSTECTOMY 07/28/2016 - 07/27/2017 Cholecystectomy, laparoscopic HAND SURGERY Bilateral carpal tunnel and ulnar nerve release COLONOSCOPY 05/28/2016 - 06/26/2016 COLONOSCOPY 05/27/2022 SKIN CANCER EXCISION removed 6 or 7 times Medical History Medical History Date Comments Cerebrovascular accident (CVA) (HCC) Stroke Hx Other Medical vit d deficienc y Polyp of colon colon polyps Rosacea rosacea Hx Other Medical 07/04/2012 ER visit for me calista and hematuria Hx Other Medical 07/08/2012 Hospital stay f or intestinal infection Hypercholesterolemia High choles terol; Comments: [facility] 05/10/2015 - Hypertension Hypertension Arthritis Arthritis; Comme nts: [facility] 05/10/2015 - Type 2 diabetes mellitus (HCC) D iabetes type 2; Comments: [facility] 05/10/2015 - Hx Other Medical Triple bypass Medication monitoring encounter Coronary artery disease Ulcerative colitis (HCC) Cataract Cancer (CMS/HCC) (HCC) skin canc er Peripheral arterial occlusiv e disease (CMS/HCC) (HCC) Systolic heart failure (CMS/HCC) (HCC) Status post insertion of spi nal cord stimulator Family History Medical History Relation Name Comments Cancer Father Cancer, unknown ; Diabetes Father Diabetes mellit us; Lung cancer Other 1 Family history of Cancer -lung; Liver cancer Other 2 Cancer -liver; Lung cancer Other 3 Family history of Cancer, lung; Diabetes Other 4 Family history of Diabetes mellitus; Relation Name Status Comments Father Mother Unknown Other 1 Other 2 Other 3 Other 4 Social History Tobacco Use Types Packs/Day Years Used Date Smoking Tobacco: Former Cigarettes Q uit: 08/22/2002 Smokeless Tobacco: Never Tobacco Cessation:Counseling Given: Not Answered Comments:Smoking History Packs/day: 1 Packs Alcohol Use Standard Drinks/Week Comments No 0 (1 standard drink = 0.6 oz pur e alcohol) AUDIT-C Answer Date Recorded Q1: How often do you have a drink containing alcohol? Never 05/20/2024 Q2: How many drinks containi ng alcohol do you have on a typical day when you are drinking? Patient does not drink Q3: How often do you have si x or more drinks on one occasion? Never 05/20/2024 PHQ-2 Answer Date Recorded PHQ-2 Total Score (If total score is 3 or more points, staff should administer the PHQ-9) 0 04/19/2024 Personal Safety Answer Date Recorded Have you ever been in or are you currently in a harmful physical or emotional relationship or is someone making you feel afraid or unsafe? Denies 04/19/2024 Sex and Gender Information Value Date Recorded Sex Assigned at Not on file Legal Sex Male 11:50 AM PORTAL ARCHITECT Gender Identity Not on file Sexual Orientation Not on file Obstetrics History Last Filed Vital Signs Vital Sign Reading Time Taken Comments Blood Pressure 105/67 05/20/2024 9:07 AM CDT Pulse 85 05/20/2024 9:07 AM CDT Temperature 36.4 ??C (97.5 ??F) 04/20/2024 7:27 AM CD T Respiratory Rate 18 04/20/2024 7:27 AM CDT Oxygen Saturation 97% 05/20/2024 9:07 AM CDT Inhaled Oxygen Concentration - - Weight 85 kg (187 lb 6.4 oz) 05/20/2024 9:07 AM CDT Height 175.3 cm (5' 9 ) 05/20/2024 9:07 AM CDT Body Mass Index 27.67 05/20/2024 9:07 AM CDT Plan of Treatment Upcoming Encounters Date Type Department Care Team (Late st Contact Info) Description 09/30/2024 1:30 PM PORTAL ARCHITECT Hospital Encounter [facility] [address] [place] [address] Elizabeth Doan MD [address] [place] [address] DR BEAU[address]AMP [address] [place] [address] 09/30/2024 1:30 PM PORTAL ARCHITECT - 09/30/2024 2:00 PM PORTAL ARCHITECT Surgery [address] [address] Elizabeth Doan MD [address] [place] [address] [place] [address] COLONOSCOPY Scheduled Procedures Name Priority Associated Diagnoses Date/Ti me COLONOSCOPY Ulcerative colitis with complication, unspecified location (HCC) 09/30/2024 1:30 PM PORTAL ARCHITECT Health Maintenance Due Date Last Done Comments Albumin Creatinine Ratio, Urine 1950 Pneumococcal vaccine 65+ (1 of 2 - PCV) 1957 Hepatitis B Screening 1969 Zoster Vaccine (1 of 2) 2001 Prostate Cancer Screening-PSA 01/15/2013 01/15/2011 Well Visit 65+ 2016 Dilated Eye Exam 10/22/2017 10/22/2016 Foot Exam 03/11/2018 03/11/2017, 11/12/2016 DTaP/Tdap/Td Vaccine (2 - Td or Tdap) 04/19/2019 04/19/2009 Influenza Vaccine (#1) 2024 , 07/25/2017, 05/02/2016, Additional history exists Hemoglobin A1C 10/06/2024 04/08/2024, 07/29, 07/03/2017, Additional history exists Lipid Panel 12/29/2024 12/30/2023, 09/25, 07/03/2017, Additional history exists Depression Screening 04/08/2025 04/08/2024, 08/25/2020, 07/06/2019, Additional history exists Fall Risk Assessment 04/20/2025 04/20/2024, 04/08/2024, 07/06/2019, Additional history exists eGFR 04/20/2025 04/20/2024, 03/28, 10/21/2020, Additional history exists Colon Cancer Screening-Colonoscopy 05/27/2025 05/27/2022, 05/31/2016, 05/31/2016, Additional history exists Hepatitis C Screening Completed 11/06/2016 Colon Cancer Screening-CT Colonography Discontinued 05/27/2022, 05/31/2016, 05/31/2016, Additional history exists Colon Cancer Screening-DNA Stool Discontinued 05/27/2022, 05/31/2016, 05/31/2016, Additional history exists Colon Cancer Screening-FIT Discontinued 05/27, 05/31/2016, 05/31/2016, Additional history exists Colon Cancer Screening-Sigmoidoscopy Discontinued 05/27/2022, 05/31/2016, 05/31/2016, Additional history exists Abdominal Aortic Aneurysm (A AA) Screen Completed 06/12/2024, 07/22/2017, 04/01/2017 Medical Devices Implanted Type Area Fly Raiser Lockstitch Device Identifier Shelf Expiration Date Model / Serial / Lot [employer] [id number] Viabahn 6mm 6fr 5cm 120cm Delivery System Superficial Femoral - [id number] - [id number] Implanted:Qty: 1 on 02/27/2018 by Alex Sandoval MD at [facility] Right: Groin [employer] 10/06/2020 [id number] / [id number] / [id number] Angio-Seal Implanted:Qty: 1 on 02/27/2018 by Alex Sandoval MD at [facility] Left: Groin [employer] [id number] 05/27/2018 [id number] / [id number] / [id number] [employer] [place] 58mm Sector Hip Shell Acetabular Gription Sterile Latex Free [id number] - [id number] Implanted:Qty: 1 on 04/19/2024 by Vicente Cason MD at [facility] Right: Hip [employer] [id number] 08/27/2033 [id number] / / [id number] [employer] [place] 58mm 36mm Hip Neutral Liner Acetabular Altrx Sterile Latex Free [id number] - [id number] Implanted:Qty: 1 on 04/19/2024 by Vicente Cason MD at [facility] Right: Hip [employer] [id number] 12/25/2028 [id number] / / [id number] [employer] [place] 6.5mm 35mm Acetabular Cancellous Screw Bone Sterile 1217-35-500 - [id number] Implanted:Qty: 1 on 04/19/2024 by Vicente Cason MD at [facility] Right: Hip [employer] [id number] 12/25/2033 1217-35-500 / / [id number] [employer] [place] 6.5mm 35mm Acetabular Cancellous Screw Bone Sterile 1217-35-500 - [id number] Implanted:Qty: 1 on 04/19/2024 by Viecnte Cason MD at [facility] Right: Hip [employer] [id number] 04/26/2033 1217-35-500 / / [id number] [employer] Actis Collar Hip 7 High Offset Stem Femoral [id number] - [id number] Implanted:Qty: 1 on 04/19/2024 by Vicente Cason MD at [facility] Right: Hip [employer] [id number] 01/24/2034 [id number] / / [id number] [employer] Articul/Estevan 36mm Cementless Hip +5mm 12/14 T[place] Head Femoral Latex Free [id number] - [id number] Implanted:Qty: 1 on 04/19/2024 by Vicente Cason MD at [facility] Right: Hip [employer] [id number] 01/24/2029 [id number] / / [id number] Procedures Procedure Name Priority Date/Time Associated Diagnosis Comments XR HIP RIGHT 2 OR 3 VIEWS Schedule Routine, Read Routine (OP Routine) 06/15/2024 9:47 AM PORTAL ARCHITECT Aftercare following right hip joint replacement surgery CT ABDOMEN PELVIS WO CONTRAST Schedule Routine, Read Routine (OP Routine) 06/12/2024 9:34 AM PORTAL ARCHITECT Diarrhea of infectious origin Ulcerative pancolitis with complication (CMS/HCC) (HCC) C. DIFFICILE TESTING Routine 05/24/2024 8:00 AM CDT Diarrhea of infectious origin EGFR Routine 04/20/2024 4:24 AM CDT HEMOGLOBIN A1C Routine 04/08/2024 9:32 AM CDT Pre-operative exam POCT LIPID PANEL Routine 12/30/2023 10:3 2 AM CDT Lipid screening COLONOSCOPY 05/27/2022 10:40 AM CDT HM DIABETES FOOT EXAM Routine 11/12/2016 HEPATITIS C SCREENING Routine 11/06/2016 DIABETES EYE EXAM Routine 10/22/2016 PSA SCREENING Routine 01/15/2011 from Last 3 Months or Most Recently Relevant to Health Maintenance Results * XR Hip Right 2 or 3 Views (06/15/2024 9:47 AM PORTAL ARCHITECT) Anatomical Region Laterality Modality Lower Extremities, Hip, Pelvis Right D igital Radiography Narrative 06/15/2024 10:06 AM PORTAL ARCHITECT Right total hip replacement with some early heterotopic ossification of the abductor muscle Vicente Cason MD IMG XR PROCEDURES Edited Result - Final * CT Abdomen Pelvis WO Contrast (06/12/2024 9:34 AM PORTAL ARCHITECT) Anatomical Region Laterality Modality Body N/A Computed Tomogra phy 06/16/2024 2:29 PM PORTAL ARCHITECT Narrative 06/16/2024 2:44 PM PORTAL ARCHITECT EXAM DESCRIPTION: ?? CT ABDOMEN PELVIS WO CONTRAST REASON FOR STUDY: ?? Inflammatory bowel disease, ulcerative colitis ?? C/o intermittent diarrhea for a few years ??Hx of cholecystectomy and ulcerative colitis ? TECHNIQUE: CT scan of the abdomen and pelvis performed without intravenous and without ??oral contrast using helical scanning technique. Reconstructed coronal and sagittal MPR images reviewed. All images stored on PACS. Automated exposure control was used as a dose optimization technique for this examination. COMPARISON: ?? 07/22/2017 FINDINGS: The sensitivity for detection of visceral lesions is diminished without the use of intravenous contrast. LOWER CHEST: ?? No significant pulmonary abnormalities. No effusion. ?? Coronary artery calcification. ??Recommend clinical correlation for coronary artery disease. LIVER: ?? Normal size. ??No identified cystic or solid masses. GALLBLADDER: ?? Surgically absent. BILE DUCTS: ?? No intrahepatic or extrahepatic ductal dilatation. SPLEEN: ?? Normal size. ??No focal lesions. ?? Calcified granulomas. PANCREAS: ?? No identified cystic or solid masses. ??No significant calcifications. No adjacent inflammation or peripancreatic fluid collections. Pancreatic duct not dilated. ADRENALS: ?? Normal. KIDNEYS/URINARY TRACT: ?? Probable bilateral renal cysts. ??No stones. No hydronephrosis or hydroureter. ?Urinary bladder is unremarkable. GI: ?? No dilated bowel loops. No obvious wall thickening. ??Normal appendix. ?? No significant diverticular disease. PERITONEUM: ?? No ascites or free air. RETROPERITONEUM: ?? No mass or adenopathy. REPRODUCTIVE: ?? No significant abnormality. VASCULATURE: ?? No abdominal aortic aneurysm. ?? Atherosclerotic calcification of the abdominal aorta and iliac arteries. ??There are stents in the left common iliac artery and the right superficial femoral artery. MUSCULOSKELETAL: ?? Multilevel degenerative changes are present without fracture. No concerning lesions are present. ??Right hip arthroplasty with resulting artifact. OTHER: ?? No other abnormality. IMPRESSION: Coronary artery calcification. Recommend clinical correlation for coronary artery disease. Surgical absence of the gallbladder. Probable bilateral renal cysts. THIS IS AN ELECTRONICALLY VERIFIED FINAL REPORT 06/16/2024 2:44 PM - Electronically signed by ??Crescencio Harman M.D. KT: KT D: ??06/16/2024 2:44 PM T: ??06/16/2024 2:44 PM Report ID: [id number] Reading Location: ??[id number] Procedure Note Crescencio Harman MD - 06/16/2024 EXAM DESCRIPTION: CT ABDOMEN PELVIS WO CONTRAST REASON FOR STUDY: Inflammatory bowel disease, ulcerative colitis C/o intermittent diarrhea for a few years Hx of cholecystectomy and ulcerative colitis TECHNIQUE: CT scan of the abdomen and pelvis performed without intravenousand without oral contrast using helical scanning technique. Reconstructed coronal and sagittal MPR images reviewed. All images stored on PACS.Automated exposure control was used as a dose optimization technique for this examination. COMPARISON: 07/22/2017 FINDINGS: The sensitivity for detection of visceral lesions is diminished withoutthe use of intravenous contrast. LOWER CHEST: No significant pulmonary abnormalities. No effusion.Coronary artery calcification. Recommend clinical correlation for coronary artery disease. LIVER: Normal size. No identified cystic or solid masses. GALLBLADDER: Surgically absent. BILE DUCTS: No intrahepatic or extrahepatic ductal dilatation. SPLEEN: Normal size. No focal lesions. Calcified granulomas. PANCREAS: No identified cystic or solid masses. No significant calcifications. No adjacent inflammation or peripancreatic fluidcollections. Pancreatic duct not dilated. ADRENALS: Normal. KIDNEYS/URINARY TRACT: Probable bilateral renal cysts. No stones. No hydronephrosis or hydroureter. Urinary bladder is unremarkable. GI: No dilated bowel loops. No obvious wall thickening. Normalappendix. No significant diverticular disease. PERITONEUM: No ascites or free air. RETROPERITONEUM: No mass or adenopathy. REPRODUCTIVE: No significant abnormality. VASCULATURE: No abdominal aortic aneurysm. Atheroscleroticcalcification of the abdominal aorta and iliac arteries. There are stents in the left common iliac artery and the right superficial femoral artery. MUSCULOSKELETAL: Multilevel degenerative changes are present without fracture. No concerning lesions are present. Right hip arthroplasty with resulting artifact. OTHER: No other abnormality. IMPRESSION: Coronary artery calcification. Recommend clinical correlation forcoronary artery disease. Surgical absence of the gallbladder. Probable bilateral renal cysts. THIS IS AN ELECTRONICALLY VERIFIED FINAL REPORT 06/16/2024 2:44 PM - Electronically signed by Crescencio Harman M.D. KT: HUBER Report ID: [id number] Reading Location: [place] [address] Elizabeth Doan MD IMG CT PROCEDURES Final Re sult * C. difficile testing Stool (05/24/2024 8:00 AM CDT) [facility] Result Negative Negative Toxin Result Negative Negative ROBERT BASHIR (LUDWIG) C. diff result Negative, free toxin Negative, free toxin ROBERT BASHIR ([place]UDWIG) C. diff interp Negative for toxigenic Clostridioides (Clostridium) difficile. Analysis was performed using a glutamate dehydrogenase antigen detection assay combined with a C. difficile toxin detection assay. ROBERT BASHIR ([place]UDWIG) Stool 05/24/2024 8:00 AM CDT 05/24/2024 2:17 PM CDT Elizabeth Doan MD LAB MICROBIOLOGY - GENERAL ORDERABLES Final Result ROBERT BASHIR ([place]UDWIG) 1 [facility] [place] [address] * eGFR (04/20/2024 4:24 AM CDT) eGFR 71 >=60 mL/min/1. 73 m2 Comment: Interpretive Data Reference Interval Normal ?>/= 90 mL/min/1.73m2 Mildly decreased* ? 60 - 89 mL/min/1.73m2 Mildly to moderately decreased ?45 - 59 mL/min/1.73m2 Moderately to severely decreased ??30 - 44 mL/min/1.73m2 Severely decreased ?15 - 29 mL/min/1.73m2 Kidney Failure ?< 15 ??mL/min/1.73m2 *Relative to young adult level Estimated glomerular filtration rate is determined by the 2020 CKD-EPI equation recommended by the National Kidney Foundation (A Unifying Approach to GFR Estimation: Recommendations of the NKF-ASK Task Force on Reassessing the Inclusion of Race in Diagnosing Kidney Disease, JASN 2020). The CKD-EPI equation should not be used for patients with unstable renal function and has not been validated in children and those over 70. Current interpretive data was last reviewed 2021. Blood 04/20/2024 4:24 AM CDT 04/20/2024 5:10 AM CDT us Olga Lidia Oliver USABILITY SPECIALIST LAB BLOOD ORDERABLES Fi nal Result ROBERT BASHIR (MENTONE) 1 [facility] [place] [address] * (ABNORMAL) Hemoglobin A1c (04/08/2024 9:32 AM CDT) Hgb A1C 7.0(H) 4.0 - 5.6 % Estimated Average Glucose 154 mg/dL ROBERT BASHIR (MENTONE) Comment: The ADA recommends reporting an estimated Average Glucose (eAG) with all Hemoglobin A1c results using the equation derived from a study of 507 normal and diabetic adults. ??Minority populations were underrepresented and children were not included. ?? (Diabetes Care 31:0859-7201, 2007). ??The eAG is not equivalent to a fasting glucose. Blood 04/08/2024 9:32 AM CDT 04/08/2024 10:52 AM CDT us Vicnete Cason MD LAB BLOOD ORDERABLES Fin al Result ROBERT MCKAY (MENTONE) 1 [facility] [place] [address] * POCT lipid panel (12/30/2023 10:32 AM CDT) Cholesterol, POC 112 mg/dL HDL, POC 21 mg/dL Triglycerides, POC 264 mg/dL LDL Cholesterol POC 38 mg/dL Chol/HDL Ratio, POC 1.8 Non-HDL Cholesterol, POC 91 mg/dL Cholesterol Total, POC 112 mg/dL Capillary blood 12/30/2023 1 0:32 AM CDT us Jose Carlos Wise MD POINT OF CARE TEST ORDER JAC Edited Result - Final * COLONOSCOPY (05/27/2022 10:40 AM CDT) Anatomical Region Laterality Modality Other Narrative Procedure Note Mich Newby MD - 05/27/2022 10:40 AM CDT [facility] Patient Name: John Winn Procedure Date: 05/27/2022 10:40AM Date of : 1950 Admit Type: Outpatient Age: 72 Gender: Male Attending MD: Mich Newby M.D. Room: [facility] ENDOSCOPY ROOM 2 Note Status: Finalized Patient Profile: Refer to note in patient chart for documentation of history and physical. Procedure: Colonoscopy Indications: High risk colon cancer surveillance: Ulcerativeleft sided colitis of 8 (or more) years duration, Last colonoscopy: May 2016 Referring MD: Eh Stanley M.D. Providers: Mich Newby M.D. Impression: - Hemorrhoids found on perianal exam. - Ulcerative colitis. Inflammation was found fromthe transverse colon to the hepatic flexure. This was severe, unchanged compared to previousexaminations. Chromoscopy performed. - The examination was otherwise normal. - No specimens collected. Recommendation: - Discharge patient to home. - Resume previous diet. - Continue present medications. - Repeat colonoscopy in 3 years for surveillance. - Return to primary care physician as previously scheduled. Medicines: Propofol per Anesthesia Complications: No immediate complications. Estimated Blood Loss: Estimated blood loss: none. Procedure: Pre-Anesthesia Assessment: - This assessment was completed [Time ofAssessment] prior to the administration of sedation. The benefits, risks and alternatives of theprocedure and sedation were discussed and informed consentwas obtained. All questions were answered. Please referto the signed informed consent document in the medical record. The bowel preparation used was Miralax and bisacodyl tablets via single dose instruction. The scope was passed under direct vision. TheColonoscope [id number] was introduced through the anus and advanced to the the cecum, identified by appendiceal orifice and ileocecal valve. The colonoscopy was performed without difficulty. The patient tolerated the procedure well. The qualityof the bowel preparation was good. The ileocecalvalve, appendiceal orifice, and rectum werephotographed. Findings: Hemorrhoids were found on perianal exam. Inflammation characterized by altered vascularity, congestion(edema), erythema, pseudopolyps and scarring was found in a continuous and circumferential pattern from the transverse colon to the hepatic flexure. The hepatic flexure, the ascending colon and the cecum were spared. The inflammation was severe, and when compared to previous examinations, the findings are unchanged. Staining chromoscopy with methylene blue was performed using irrigation chromoendoscopytechnique. Estimated blood loss: none. The exam was otherwise without abnormality. Electronically signed by Mich Newby M.D. Mich Newby M.D. 05/27/2022 12:08:19 PM Number of Addenda: 0 Note Initiated On: 05/27/2022 10:40 AM Procedure Code(s): --- Professional --- G0105, Colorectal cancer screening; colonoscopy on individual at high risk Diagnosis Code(s): --- Professional --- K64.9, Unspecified hemorrhoids K51.50, Left sided colitis without complications CPT copyright 2020 [employer]. All rights reserved. The codes documented in this report are preliminary and upon coil tester reviewmay be revised to meet current compliance requirements. Recognized by the [place] [employer] for promoting quality in endoscopy Mich Newby MD ENDOSCOPY PROCEDURES Final Re sult * DIABETES FOOT EXAM (11/12/2016) Diabetic Foot Exam Unknown Historical Provider HEALTH MAINTENANCE Final Result * HEPATITIS C SCREENING (11/06/2016) HEP C Normal Comment:Negative Historical Provider HEALTH MAINTENANCE Final Result * DIABETES EYE EXAM (10/22/2016) Diabetic Eye Exam Unknown Historical Provider HEALTH MAINTENANCE Final Result * PSA SCREENING (01/15/2011) PSA Normal Historical Provider HEALTH MAINTENANCE Final Result from Last 3 Months or Most Recently Relevant to Health Maintenance Insurance T MEDICARE MEDICARE [facility] MEDICARE Address: [facility] [address] [place] [address] T MEDICARE Advance Directives For more information, please contact: [phone] * Full Code (Latest Code Status on File) Date Activated Date Inactivated Comments 04/19/2024 3:12 PM 04/20/2024 5:35 PM * Full Code Date Activated Date Inactivated Comments 05/27/2022 10:34 AM 05/27/2022 5:11 PM * Full Code Date Activated Date Inactivated Comments 05/27/2022 10:34 AM 05/27/2022 10:34 AM * Full Code Date Activated Date Inactivated Comments 10/20/2020 5:24 PM 10/23/2020 4:59 PM * Full Code Date Activated Date Inactivated Comments 08/25/2020 6:11 PM 09/03/2020 8:03 PM Care Teams Sap Bw Bi Developer Relationship Specialty Start Date End Date Eh Stanley MD [address] [facility] [address] [place] [address] PCP - General 10/25/16 Alex Sandoval MD [address] [facility] [place] [address] Surgeon Vascular Surgery 08/15/20 Vicente Cason MD [address] [place] [address] [address] [place] [address] Surgeon Orthopedic Surgery 04/20/24
--- OUTSIDE RECORDS SUMMARY | 2024-08-20 14:55 | XMS_ITS | Referral Summary ---
Author Organization [facility] Address [address] [place] [id number] Care Team Providers Care Talent Engineer Name Role Phone Eh Stanley MD Primary Care Provider + Alex Sandoval MD Unavailable Vicente Cason MD Unavailable [phone] Encounters Date Type Department Care Team Description 06/15/2024 7:41 AM ATTIC BLOWER - 06/15/2024 11:59 PM ATTIC BLOWER Hospital Encounter [facility] Medical [facility] Medicine [address] [place] [phone] Discharge Disposition: Discharge to home or self care 06/15/2024 9:45 AM ATTIC BLOWER Office Visit [facility] [address] [place] [phone] Vicente Cason MD Pre-operative exam (Primary Dx); Aftercare following right hip joint replacement surgery; Aftercare following joint replacement surgery, unspecified joint 06/12/2024 8:34 AM ATTIC BLOWER - 06/12/2024 11:59 PM ATTIC BLOWER Hospital Encounter [facility] [address] [place] [address] Diarrhea of infectious origin; Ulcerative pancolitis with complication (CMS/HCC) (HCC) Discharge Disposition: Discharge to home or self care 05/24/2024 8:00 AM CDT - 05/24/2024 11:59 PM CDT Hospital Encounter [address] Diarrhea of infectious origin Discharge Disposition: Discharge to home or self care 05/20/2024 Telephone [facility] Gastro[facility]ology at [address] [place] [phone] Trish Fraga MA 05/20/2024 9:15 AM CDT Office Visit [facility] at [address] [place] [phone] Elizabeth Doan MD Ulcerative pancolitis with complication (CMS/HCC) (HCC) (Primary Dx); Diarrhea of infectious origin from Last 3 Months Allergies Active Allergy Reactions Criticality Noted Date Comments Simvastatin Muscle pain Medium Reaction: Myalgias, Yindmqt-Mau-Kce Reductase Inhibitors Muscle pain,Joint pain Medium Reaction: Joint pain, , Reaction: Myalgias, , Medications lancets (ACCU-CHEK FASTCLIX) [facility] check blood sugar 3 times daily and [...] daily Indications: type 2 diabetes mellitus Active flodnfyi-rnc-lenva -vit K-lycop 400-20-300 mcg tablet Take 1 [...] (10 mg total) by mouth daily 12/14/19 24 Active gabapentin (NEURONTIN) 300 mg capsule Take [...] Mouth Daily with Breakfast 750 tablet 05/31/20 Active Active Problems Problem Noted Date Diagnosed [...] six months. Acute respiratory failure with hypoxia (CMS/[facility]) 08/27/2020 Shortness of breath 08/26/2020 Pneumonia due to COVID-19 virus 08/25/2020 Claudication 02/24/2018 Overview (02/24/2018): Added automatically from request for surgery [id number] Change in bowel habits 04/14/2017 Assessment & Plan (04/14/2017 3:46 PM CDT): Since nathan has days of alternating C/D. Calculus of gallbladder 07/31/2015 Overview (10/31/2016): Cholelithiasis Chronic coronary artery disease 07/01/2015 Overview (10/31/2016): CAD - Coronary artery disease Coronary arteriosclerosis in coquille artery 05/10 Overview (10/31/2016): Atherosclerosis of coquille coronary artery of coquille heart with angina pectoris Cerebral infarction 11/08/2014 Overview (10/31/2016): CVA (cerebral infarction) Systolic heart failure ([facility]) 11/08/2014 Overview (10/31/2016): Systolic heart failure Rosacea 12/11/2013 Overview (11/01/2016): ROSACEA Type 2 diabetes mellitus 12/11/2013 Overview (11/01/2016): DMII WO CMP UNCNTRLD Primary osteoarthritis of left hip 12/11/2013 Overview (11/01/2016): DJD (degenerative joint disease) of hip Peripheral arterial occlusive disease ([facility]) 12/11/2013 Overview (11/01/2016): PVD (peripheral vascular disease) with claudicatio Benign neoplasm of large intestine 12/11/2013 Overview (11/01/2016): BENIGN NEOPLASM LG BOWEL 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 Return 6 mos Assessment & Plan (09/24/2022 12:58 PM ATTIC BLOWER): CONTINUE present regimen and return prn or 6 mos Assessment & Plan (06/24/2022 1:52 PM ATTIC BLOWER): contyinue lialda and increase the budesonide to 9 mg and return 3 mos. Assessment & Plan (07/06/2019 2:23 PM ATTIC BLOWER): UC at least to mid ttransverse flare responded immediately to the prodnisone but his blood glu went haywire and vision blurred (however his neuropathy went away). We stopped the po prednisone and he is now asx and maintained on the lialds. disciussed and dismissed biologics for now. With next flare will avoid po prednisone nd consider budesonide. Assessment & Plan (06/15/2019 2:52 PM ATTIC BLOWER): 6 weeks ago sudden increase in frequency [...] cervical region 06/22/2012 08/23/2020 Cervical radiculopathy 09/19/201108/23 Immunizations Name Administration Dates Next Due Influenza, Quad, Adjuvantated, Intramuscular Influenza, Quadrivalent, Spl it, Preservative Free, Intramuscular 05/16/2015 Influenza, Split 08/11/2013 Influenza, Trivalent, High D ose, Split, Preservative Free, Intramuscular 07/25/2017,05/02/2016 Influenza, Trivalent, Recomb inant, Egg Free, Preservative Free, Antibiotic Free, IM (FLUBLOK) 05/11/2014,05/11/2014 Tdap 04/19/2009 Social History Tobacco Use Types Packs/Day Years [...] on file Legal Sex Male 11:50 AM ATTIC BLOWER Gender Identity Not on file Sexual Orientation [...] st Contact Info) Description 09/30/2024 1:30 PM ATTIC BLOWER Hospital Encounter [address] [address] Elizabeth Doan MD [address] [facility] [address] [place] [address] 09/30/2024 1:30 PM ATTIC BLOWER - 09/30/2024 2:00 PM ATTIC BLOWER Surgery [facility] [address] [place] [address] Elizabeth Doan MD [address] [facility] [address] [place] [address] COLONOSCOPY Scheduled Procedures Name Priority Associated Diagnoses Date/Ti tn COLONOSCOPY Ulcerative colitis with complication, unspecified location (HCC) 09/30/2024 1:30 PM ATTIC BLOWER Medical Devices Implanted Type Area Maintenance Scheduler Device Identifier Shelf Expiration Date Model / Serial / Lot [employer] [id number] Viabahn 6mm 6fr 5cm 120cm Delivery System Superficial Femoral - [id number] - [id number] Implanted:Qty: 1 on 02/27/2018 by Alex Sandoval MD at [facility] Right: Groin [employer] 10/06/2020 [id number] / [id number] / [id number] Angio-Seal Implanted:Qty: 1 on 02/27/2018 by Alex Sandoval MD at [facility] Left: Groin [employer] [id number] 05/27/2018 [id number] / [id number] / [id number] [employer] [place] 58mm Sector Hip Shell Acetabular Gription Sterile Latex Free [id number] - [id number] Implanted:Qty: 1 on 04/19/2024 by Vicente Cason MD at [facility] Right: Hip [employer] [id number] 08/27/2033 [id number] / / [id number] [employer] [place] 58mm 36mm Hip Neutral Liner Acetabular Altrx Sterile Latex Free [id number] - [id number] Implanted:Qty: 1 on 04/19/2024 by Vicente Cason MD at [facility] Right: Hip [employer] [id number] 12/25/2028 [id number] / / [id number] [employer] [place] 6.5mm 35mm Acetabular Cancellous Screw Bone Sterile 1217-35-500 - [id number] Implanted:Qty: 1 on 04/19/2024 by Vicente Cason MD at [facility] Right: Hip [employer] [id number] 12/25/2033 1217-35-500 / / [id number] [employer] [place] 6.5mm 35mm Acetabular Cancellous Screw Bone Sterile 1217-35-500 - [id number] Implanted:Qty: 1 on 04/19/2024 by Vicente Cason MD at [facility] Right: Hip [employer] [id number] 04/26/2033 1217-35-500 / / [id number] [employer] Actis Collar Hip 7 High Offset Stem Femoral [id number] - [id number] Implanted:Qty: 1 on 04/19/2024 by Vicente Cason MD at [facility] Right: Hip [employer] [id number] 01/24/2034 [id number] / / [id number] [employer] Articul/Estevan 36mm Cementless Hip +5mm 12/14 Taper Head Femoral Latex Free [id number] - [id number] Implanted:Qty: 1 on 04/19/2024 by Vicente Cason MD at [facility] Right: Hip [employer] [id number] 01/24/2029 [id number] / / [id number] Procedures Procedure Name Priority Date/Time Associated Diagnosis Comments XR HIP RIGHT 2 OR 3 VIEWS Schedule Routine, Read Routine (OP Routine) 06/15/2024 9:47 AM ATTIC BLOWER Aftercare following right hip joint replacement surgery CT ABDOMEN PELVIS WO CONTRAST Schedule Routine, Read Routine (OP Routine) 06/12/2024 9:34 AM ATTIC BLOWER Diarrhea of infectious origin Ulcerative pancolitis with complication (CMS/HCC) (HCC) C. DIFFICILE TESTING Routine 05/24/2024 8:00 AM CDT Diarrhea of infectious origin EGFR Routine 04/20/2024 4:24 AM CDT HEMOGLOBIN A1C Routine 04/08/2024 9:32 AM CDT Pre-operative exam POCT LIPID PANEL Routine 12/30/2023 10:3 2 AM CDT Lipid screening COLONOSCOPY 05/27/2022 10:40 AM CDT DIABETES FOOT EXAM Routine 11/12/2016 HEPATITIS C SCREENING Routine 11/06/2016 DIABETES EYE EXAM Routine 10/22/2016 PSA SCREENING Routine 01/15/2011 from Last 3 Months or Most Recently Relevant to Health Maintenance Results * XR Hip Right 2 or 3 Views (06/15/2024 9:47 AM ATTIC BLOWER) Anatomical Region Laterality Modality Lower Extremities, Hip, Pelvis Right D igital Radiography Narrative 06/15/2024 10:06 AM ATTIC BLOWER Right total hip replacement with some early heterotopic ossification of the abductor muscle Vicente Cason MD IMG XR PROCEDURES Edited Result - Final * CT Abdomen Pelvis WO Contrast (06/12/2024 9:34 AM ATTIC BLOWER) Anatomical Region Laterality Modality Body N/A Computed Tomogra phy 06/16/2024 2:29 PM ATTIC BLOWER Narrative 06/16/2024 2:44 PM ATTIC BLOWER EXAM DESCRIPTION: ?? CT ABDOMEN PELVIS WO [...] PM T: ??06/16/2024 2:44 PM Report ID: [id number] Reading Location: ??[id number] Procedure Note Crescencio Harman MD - 06/16/2024 [...] Crescencio Harman M.D. KT: HUBER Report ID: [id number] Reading Location: [place] [address] Elizabeth Doan MD [facility] CT PROCEDURES Final Re sult * C. difficile testing Stool (05/24/2024 8:00 AM CDT) Pathologist [facility] Result Negative Negative Toxin Result Negative Negative [facility] (LUDWIG) C. diff result Negative, free toxin Negative, free toxin CERNER MCKAY (NORRIS) C. diff interp Negative for toxigenic Clostridioides (Clostridium) difficile. Analysis was performed using a glutamate dehydrogenase antigen detection assay combined with a C. difficile toxin detection assay. ROBERT MCKAY (NORRIS) Stool 05/24/2024 8:00 AM CDT 05/24/2024 2:17 PM CDT Elizabeth Doan MD LAB MICROBIOLOGY - GENERAL ORDERABLES Final Result ROBERT MCKAY (NORRIS) 1 [facility] [place] [facility] Department [place] [address] * eGFR (04/20/2024 4:24 AM CDT) eGFR [...] 5:10 AM CDT us Olga Lidia Oliver NP LAB BLOOD ORDERABLES Fi nal Result Performing Organization Address [facility]/ZIP Co de Phone Number ROBERT BASHIR (NORRIS) [address] [facility] [place] [address] * (ABNORMAL) Hemoglobin A1c (04/08/2024 9:32 AM CDT) Hgb A1C 7.0(H) 4.0 - 5.6 % Estimated Average Glucose 154 mg/dL ROBERT BASHIR (NORRIS) Comment: The ADA recommends reporting an estimated Average Glucose (eAG) with all Hemoglobin A1c results using the equation derived from a study of 507 normal and diabetic adults. ??Minority populations were underrepresented and children were not included. ?? (Diabetes Care 31:6260-0264, 2008). ??The eAG is not equivalent to a fasting glucose. Blood 04/08/2024 9:32 AM CDT 04/08/2024 10:52 AM CDT Vicente Cason MD LAB BLOOD ORDERABLES Fin al Result Performing Organization Address City/[facility] Co de Phone Number ROBERT BASHIR (NORRIS) [address] [facility] [place] [place] [address] * POCT lipid panel (12/30/2023 10:32 AM [...] Newby MD - 05/27/2022 10:40 AM CDT [facility] Patient Name: John Winn Procedure Date: 05/27/2022 10:40AM Date of : 1950 Admit Type: Outpatient Age: 72 Gender: Male Attending MD: Mich Newby M.D. Room: [facility] ENDOSCOPY ROOM 2 Note Status: Finalized Patient [...] scope was passed under direct vision. TheColonoscope [id number] was introduced through the anus and advanced [...] sided colitis without complications CPT copyright 2020 [employer]. All rights reserved. The codes documented in this report are preliminary and upon manager fine dining reviewmay be revised to meet current compliance requirements. Recognized by the [place] [employer] for promoting quality in endoscopy Mich Newby MD ENDOSCOPY PROCEDURES Final Re sult * DIABETES FOOT EXAM (11/12/2016) Diabetic Foot Exam Unknown Result [facility] Historical Provider HEALTH MAINTENANCE Final Result * HEPATITIS C SCREENING (11/06/2016) HEP C Normal Comment:Negative Result [facility] Historical Provider HEALTH MAINTENANCE Final Result * DIABETES EYE EXAM (10/22/2016) Diabetic Eye Exam Unknown Result [facility] Historical Provider HEALTH MAINTENANCE Final Result * PSA SCREENING (01/15/2011) PSA Normal Result [facility] Historical Provider HEALTH MAINTENANCE Final Result from Last 3 Months or Most Recently Relevant to Health Maintenance Insurance T MEDICARE [employer] MEDICARE MEDICARE [facility] Address: [address] [address] [place] [address] [employer] MEDICARE Advance Directives For more information, please contact: [phone] * Full Code (Latest Code Status on [...] 6:11 PM 09/03/2020 8:03 PM Care Teams Talent Engineer Relationship Specialty Start Date End Date Eh Stanley MD [address] [place] [address] PCP - General 10/25/16 Alex Sandoval MD [address] [place] [address] Surgeon Vascular Surgery 08/15/20 Vicente Cason MD [address] [place] [address] [address] [place] [address] Surgeon Orthopedic Surgery 04/20/24
--- OUTSIDE RECORDS SUMMARY | 2024-08-20 14:55 | XMS_ITS | Continuity of Care Document ---
Author Organization [facility] Address [address] [place] [address] Phone Care Team Providers Care Agricultural Equipment Design Engineer Name Role Phone Dieter NUNEZ MD, Eric Reyes Unavailab le Allergies, Adverse Reactions, Alerts Substance Reaction Status Criticality Aycyrmz-FTQ-RdA Reductase Inhibitors Acti ve No Information Medications Medication Instructions Dosage Effective Dates (start - stop) Status Comments iron ER 325 mg (65 mg iron) capsule,extended release - Active Lantus 100 unit/mL subcutaneous solution inject by subcutaneous route as per insulin protocol 0.00 - Active losartan 25 mg tablet take 1 tablet by o ral route every day 25 MG - Active multivitamin tablet take 1 tablet by ora l route every day with food - Active Novolog 100 unit/mL subcutaneous solution inject by subcutaneous route per prescriber's instructions. Insulin dosing requires individualization. 0.00 - Active Lialda 1.2 gram tablet,delayed release take 2 tablet by oral route every day with a meal 2.4 G - Active Procedures Procedure Date Eye Exam & Treatment No Charge Refraction No Charge GDX Retina Office/outpatient Visit, Est Dilate Tear Duct Opening Office/outpatient Visit, Est Repair Eyelid Defect Eye Photography Office/outpatient Visit, New Dilate Tear Duct Opening Dilate Tear Duct Opening Advance Directives Directive Yes / No Effective Date File Name No Information Encounters Encounter Description Practice Location Reason(s) For Visit Diagnoses Date Provider Providers Copied on Encounter [facility], [address], [place], [place], [id number], [place] tel:[phone] [address] Blurry vision (chief complaint) Visual distortions of shape and size Sep- 5 Dieter Reyes. [address], [address], [place], [address], [place]. tel:[phone] Referring Provider: Josiah Greene OD, [facility] [address] [place], [address]. tel:[phone] Office/outpat ient Visit, Est [facility], [address], [place], [place], [id number], [place] tel:[phone] [address] No Information 2 Maryann Hallman. [address] [facility], [facility] [place], [id number], [place]. tel:[phone] Office/outpat ient Visit, Est [facility], [address], [place], [place], [address], [place] tel:[phone] [address] No Information 1 Maryann Hallman. [address], [facility] [place], [place], [id number], [place]. tel:[phone] Office/outpat ient Visit, [facility], [address], [place], [place], [address], [place] tel:[phone] [address] No Information 1 Maryann Hallman. [address], [address] [place], [place], [address], [place]. tel:[phone] Referring Provider: Josiah Greene OD, [facility] [address] [place], [address]. tel:[phone] Family History Family Member Type Diagnosis Age At Onset No Information Payers Payer name Insurance type Covered green party ID Vidal marsh(s) [place] Out [place] [id number] Social History Type Description Quantity Date Captured Comments Alcohol Use Details No Caffeine Use Details No Tobacco Use Status Never smoked tobacco 2014 Smoking Status Never smoker Non-Smoking Tobacco Use Details : No Details Available : No Details Available Sex Male Chief Complaint And Reason For Visit From encounter dated '10/13/2014 14:45'. Blurry vision (chief complaint). Description: Pt. states that this started Friday right after he started an antibiotic( Doxycycline HYCL 100mg BID ) he has blurrred vision in OS, double vision with both eyes open, and he also states that in his OS he has a black spot in the upper left quadrant of vision. He came from [facility] who dilated him there and stated that there wsa no retinal damage. Pt. had looked up side effects of medication and it happens to be blurred and double vision so he quit taking them Fri. afternoon. Pt. states that symptoms came on rapidly Friday. Pt. has majorfluctuating blood sugar and through my exam he was stating that black cloud keeps coming nad going but was constant all day yesterday and this morning. Reason For Referral Reason For Referral No Information History Of Present Illness Encounter Date Complaint History Of Prese nt Illness Blurry vision Pt. states that this started Friday right after he started an antibiotic( Doxycycline HYCL 100mg BID ) he has blurrred vision in OS, double vision with both eyes open, and he also states that in his OS he has a black spot in the upper left quadrant of vision. He came from [facility] who dilated him there and stated that there wsa no retinal damage. Pt. had looked up side effects of medication and it happens to be blurred and double vision so he quit taking them Fri. afternoon. Pt. states that symptoms came on rapidly Friday. Pt. has major fluctuating blood sugar and through my exam he was stating that black cloud keeps coming nad going but was constant all day yesterday and this morning. Functional Status Date Functional Assessmen t No Information Instructions Date Instruction Additional Infor olga - Discussed visual d istortion. The patient's vision was correctable to 20/20, had a normal Macula OCT OU, and normal indirect ophthalmoscopy. Pt states his blood sugar was also high until he used his insulin. Pt can continue using Doxycycline. Letter dictated to Bob Christensen. RTC prn or if visual distortion reoccurs. Related to See list of assessments above Visual distortions o f shape and size - Educational material given Related to Visual distortions of shape and size Assessments Type Assessment Date assessment Visual distortions of shape and size Patient Care Teams Name Effective Dates (start - stop) Status Members No Information
--- OUTSIDE RECORDS SUMMARY | 2024-08-20 14:57 | XMS_ITS | CONTINUITY OF CARE DOCUMENT ---
Author Name smith mtz Address Unknown Organization [facility] Address [address] [place] [address] Phone [phone] Care Team Providers Care Director Advertising Name Role Phone Jeffrey NUNEZ, Javi Unavailable MARCELL NUNEZ, MARSHALL Unavailable [phone] MARSHALL FAITH MD Unavailable [phone] INSURANCE PROVIDERS Payer name Policy type / Coverage type [place] red constitution party ID [facility] MEDICARE ADVANTAGE (PPO) Other [id number]
--- OUTSIDE RECORDS SUMMARY | 2024-08-20 14:57 | XMS_ITS | Continuity of Care Document ---
Author Organization [facility] Address [address] [place] [address] Phone Care Team Providers Care Agricultural Engineering Technologist Name Role Phone Dieter NUNEZ MD, Eric Reyes Unavailab le Allergies, Adverse Reactions, Alerts Substance Reaction Status Criticality Vodclxc-JNO-NbQ Reductase Inhibitors Acti ve No Information Medications Medication Instructions Dosage Effective Dates (start - stop) Status Comments Lialda 1.2 gram tablet,delayed release take 2 tablet by oral route every day with a meal 2.4 G - Active Novolog 100 unit/mL subcutaneous solution inject by subcutaneous route per prescriber's instructions. Insulin dosing requires individualization. 0.00 - Active multivitamin tablet take 1 tablet by ora l route every day with food - Active losartan 25 mg tablet take 1 tablet by o ral route every day 25 MG - Active Lantus 100 unit/mL subcutaneous solution inject by subcutaneous route as per insulin protocol 0.00 - Active iron ER 325 mg (65 mg iron) capsule,extended release - Active Procedures Procedure Date Eye Exam [...] Provider Providers Copied on Encounter [facility], [address], [place], [place], [id number], [place] tel:[phone] [address] Blurry vision (chief complaint) Visual distortions of shape and size Sep- 5 Dieter Reyes. [address], [place], [address], [place]. tel:[phone] Referring Provider: Josiah Greene OD, [facility] [address] [place], [address]. tel:[phone] Office/outpat ient Visit, Est [facility], [address], [place], [place], [id number], [place] tel:[phone] [address] [place] [address] No Information 2 Maryann Hallman. [address] [facility], [facility] [place], [place], [address], [place]. tel:[phone] Office/outpat ient Visit, Est [facility], [address], [place], [place], [id number], [place] tel:[phone] [address] No Information 1 Maryann Hallman. [address], [facility] [place], [place], [id number], [place]. tel:[phone] Office/outpat ient Visit, [facility], [address], [place], [place], [address], [place] tel:[phone] [address] [place] [address] No Information 1 Maryann Hallman. [address], [address] [place], [place], [address], [place]. tel:[phone] Referring Provider: Josiah Greene OD, [facility] [address] [place], [address]. tel:[phone] Family History Family Member Type Diagnosis Age At Onset No Information Payers Payer name Insurance type Covered libertarian ID Vidal marsh(s) [place] [id number] Social History Type Description Quantity Date Captured [...] left quadrant of vision. He came from [facility] who dilated him there and stated [...] left quadrant of vision. He came from [facility] who dilated him there and stated [...]
[2024-08-20 15:05] VITALS: BP 100/45; PULSE 66; RESP 16; TEMP 36.8; O2SAT 100
--- NOTE | 2024-08-20 15:11 | ED_ITS ---
HPI - URI/Sore Throat General Chief Complaint: Upper Respiratory Infection Stated Complaint: Sore Throat/Runny Nose Time Seen by Provider: 08/20/24 15:10 Source: patient, RN notes reviewed and old records reviewed Mode of arrival: ambulatory Limitations: no limitations History of Present Illness HPI Narrative: 74 year old male who presents to [facility] care with complaints of sore throat, runny nose, watery eyes for the past 2 days. Patient denies any fevers thinks he has sinus infection like his . Patient denies ny fevers, chills r body aches, reports that he did home covid test which was negative. Patient reports that he took Benadryl this morning and has been using Cepacol lozenges for his throat pain. MD elicited complaint: sore throat, rhinorrhea, nasal congestion and other (watery eyes.) Onset (ago): day(s) (2) Severity: moderate Description of mucous: clear Able to tolerate fluids by mouth: Yes Treatments prior to arrival: other (Benadryl and cepacol mouth lozenges) Related Data Home Medications ?Medication ?Instructions ?Recorded ?Confirmed ?Last Taken ?Type empagliflozin 10 mg tablet 2.5 mg PO DAILY 04/27/20 08/20/24 Unknown History (Jardiance) insulin glargine 100 unit/mL 56 unit subcut DAILY 04/27/20 07/01/24 Unknown History subcutaneous solution (Lantus U-100 Insulin) liraglutide 0.6 mg/0.1 mL (18 mg/3 1.8 mg subcut DAILY 04/27/20 07/01/24 Unknown History mL) subcutaneous pen injector (Victoza 2-Stuart) apixaban 5 mg tablet (Eliquis) See Rx Instructions .Route .COMPLEX 09/01/22 08/20/24 Unknown History budesonide 3 mg 3 mg PO TID 09/01/22 08/20/24 Unknown History capsule,delayed,extended release carvedilol 12.5 mg tablet See Rx Instructions .Route .COMPLEX 09/01/22 08/20/24 12/12/23 History evolocumab 140 mg/mL subcutaneous See Rx Instructions .Route .COMPLEX 09/01/22 08/20/24 Unknown History pen injector (Repatha Debbie) indapamide 2.5 mg tablet 2.5 mg DIRECTED 06/27/23 07/01/24 Unknown History insulin aspart U-100 100 unit/mL 10 unit subcut TID 09/24/23 08/20/24 Unknown History (3 mL) subcutaneous pen (Novolog FlexPen U-100 Insulin aspart) ezetimibe 10 mg tablet 10 mg PO DAILY 07/01/24 08/20/24 Unknown History gabapentin 300 mg capsule 300 mg PO QHS 07/01/24 08/20/24 Unknown History losartan 100 mg tablet 100 mg PO DAILY 07/01/24 08/20/24 Unknown History empagliflozin 25 mg tablet mg 08/20/24 Unknown History (Jardiance) fluorouracil 5 % topical cream applic topical 08/20/24 Unknown History mesalamine 1.2 gram tablet,delayed g PO 08/20/24 Unknown History release Allergies Allergy/AdvReac Type Severity Reaction Status Date / Time Zemsauq-WTO-NgJ Reductase AdvReac Unknown Other Verified 08/20/24 15:01 Inhibitor (Cpyjvnn-Qik-Auo Reductase Inhibitor) Review of Systems Review of Systems: CONSTITUTIONAL: reports some malaise, no chills, sweats, or fever. EYES: Denies visual changes, redness, or discharge. ENT: Reports rhinorrhea, congestion,no sinus pain,no otalgia and positive for sore throat. CARDIOVASCULAR: Denies chest pain, palpitations, or edema. RESPIRATORY: Reports no cough.? Denies dyspnea. GASTROINTESTINAL: Denies abdominal pain, nausea, vomiting, diarrhea SKIN: Denies rash or itching. MUSCULOSKELETAL: Denies myalgia. NEUROLOGIC: Denies headache. All systems reviewed & are unremarkable except as noted in HPI and below PMFSH Past Medical History Medical History Spinal cord stimulator status CAD (coronary artery disease) PVD (peripheral vascular disease) Elevated serum cholesterol Hypertension Diabetes URI, acute Surgical History Surgical History History of total right hip replacement History of cholecystectomy History of heart surgery 3 vessel bypass S/P vascular bypass bypass grafts bilateral legs Social History Social History Smoking packs per day: 0.5 Smoking cigarettes per day: 10.0 Years smoked: 30 Smoking pack-years: 15.00 Smoking status: Former smoker Tobacco type: cigarettes Second hand tobacco smoke exposure: No Smoking end date: 03/03/03 Alcohol intake: never Substance use: never Substance use type: does not use Living arrangements: with family Gender identity (if verbalized by the patient): Male Spiritual care concerns: No Comments At time of signature, agree with nursing past medical, surgical, social and family history. There is no relevant family history pertinent to the presenting complaint Exam Narrative: GENERAL: chronic ill-appearing, well-nourished, and in no acute distress. HEAD: Normocephalic EYES: PERRLA, conjunctivae clear ENT: Nares clear, turbinates edematous and erythematous, clear discharge. Mucous membranes moist. TM pearly pastrana with dull light reflex bilaterally; no tragal tenderness. Oropharynx erythematous without lesions. Tonsils red not enlarged and without exudate, no drooling, no hoarseness, no trismus, uvula midline with redness and petechiae. post nasal drainage. NECK: Supple. No lymphadenopathy CHEST: Clear to auscultation, breath sounds equal. No wheezing, rhonchi, rales, or stridor. No respiratory distress, speaks in full sentences.SAO2 100% on room air HEART: Regular rate and rhythm. No murmur heard. SKIN: Warm, dry, no rash. NEURO: Alert and oriented x3. PSYCH: Normal mood and affect Course Course Emergency Course: Patient is aware of diagnosis, understands and agrees to treatment plan.? Anticipatory guidance given.? Patient agrees to follow-up as directed and is aware of reasons to seek care at the emergency department. Portions of this record may have been created with voice recognition software Level of Care: Express Care Visit Vital Signs Vital signs: Vital Signs Temperature 36.8 C 08/20/24 15:05 Pulse Rate 66 08/20/24 15:05 Respiratory Rate 16 08/20/24 15:05 Blood Pressure 100/45 L 08/20/24 15:05 Pulse Oximetry 100 08/20/24 15:05 Oxygen Delivery Room Air 08/20/24 15:05 Temperature 36.8 C 08/20/24 15:05 Pulse Rate 66 08/20/24 15:05 Respiratory Rate 16 08/20/24 15:05 Blood Pressure 100/45 L 08/20/24 15:05 Pulse Oximetry 100 08/20/24 15:05 Oxygen Delivery Room Air 08/20/24 15:05 Reviewed MDM - URI/Sore Throat MDM Narrative Medical decision making narrative: Differential diagnosis considered: virus, strep pharyngitis, allergic rhinitis, upper respiratory tract infection, sinusitis, rhinosinusitis, nasopharyngitis. viral pharyngitis, otitis media, otitis externa, pneumonia, bronchitis, viral cough syndrome, viral syndrome, and influenza.? Exam findings show no acute concerns or changes; patient is non-toxic appearing and is in no distress.? Patient is appropriate for outpatient treatment and follow-up. Differential Diagnosis Differential diagnosis: Likely upper respiratory infection, sinusitis, viral infection, pharyngitis and other (strep pharyngitis) Medical Records Attestation: I reviewed the patient's medical records. Lab Data Attestation: I reviewed the patient's lab results. Lab results narrative: strep screen positive Labs: Lab Results 08/20/24 Range/Units 16:21 POC Grp A Strep Screen Positive (Negative) reviewed Critical Care Time Critical Care Time Critical Care Time: No Discharge Plan Discharge Clinical Impression: Acute streptococcal pharyngitis Patient Disposition: Home, Self-Care Condition: Stable Instructions: Antibiotic Form, Strep Throat (ED) Additional Instructions: Increase fluids especially juices and water Bevs-neh-fjtnzta cough and cold medicine of your choice for your symptoms Zyrtec Claritin or Milady daily include Coricidin brand decongestant heat to the face 20-30 minutes 4-6 times a day for pain Salt water gargles, throat lozenges or throat sprays as desired Antibiotic as directed--finished the medication Tylenol for any fever pain If your symptoms persist, change or worsen significantly before you can contact your personal physician then please, without delay, go to the emergency department for further evaluation. Follow-up with PCP in 7-10 days or sooner if needed You tested positive for Group A strep . Take the entire course of antibiotics. Throw away your current toothbrush and begin using a new toothbrush in 48 hours in order to prevent re-infection. Sanitize all reusable water bottles . Do not share items with others. Salt water gargles may alleviate some of the throat discomfort. Patient Language: Tamazight Prescriptions: New amoxicillin 500 mg capsule 500 mg PO TID Qty: 30 0RF No Action ezetimibe 10 mg tablet 10 mg PO DAILY gabapentin 300 mg capsule 300 mg PO QHS losartan 100 mg tablet 100 mg PO DAILY amoxicillin 875 mg tablet 875 mg PO Q12H Qty: 20 0RF carvedilol 12.5 mg tablet See Rx Instructions .ROUTE .COMPLEX Rx Instructions: as prescribed budesonide 3 mg capsule,delayed,extend.release 3 mg PO TID Repatha SureClick 140 mg/mL pen injector See Rx Instructions .ROUTE .COMPLEX Rx Instructions: as prescribed Eliquis 5 mg tablet See Rx Instructions .ROUTE .COMPLEX Rx Instructions: as prescribed indapamide 2.5 mg tablet 2.5 mg DIRECTED fluorouracil 5 % cream TOPICAL mesalamine 1.2 gram tablet,delayed release (DR/EC) PO Jardiance 25 mg tablet Lantus U-100 Insulin 100 unit/mL solution 56 unit SUB-Q DAILY Rx Instructions: QAM Victoza 2-Stuart 0.6 mg/0.1 mL (18 mg/3 mL) pen injector 1.8 mg SUB-Q DAILY Jardiance 10 mg tablet 2.5 mg PO DAILY insulin aspart U-100 [Novolog FlexPen U-100 Insulin] 100 unit/mL (3 mL) insulin pen 10 unit SUBCUT TID Follow-up/Referrals: Jaden,Mu Ortega MD [Primary Care Provider] - Time of Disposition: 15:46 Quality [place] Coma Scale Eyes: Open Verbal: Oriented and Alert Motor: Follows Commands Heriberto Coma Total Score: 15
[2024-08-20 16:23] LABS: EDSTREPNEGPOS1 Positive (Negative)
== END 2024-08-20 15:50 | disposition home or self-care (01) ==
PROVIDERS: Emergency Provider Registered Nurse; PCP Internal Medicine
DX: J02.0 Streptococcal pharyngitis (principal); Z79.01 Long term (current) use of anticoagulants; Z79.4 Long term (current) use of insulin; I25.10 Atherosclerotic heart disease of native coronary artery without angina pectoris; I10 Essential (primary) hypertension; E11.9 Type 2 diabetes mellitus without complications; Z96.641 Presence of right artificial hip joint; Z87.891 Personal history of nicotine dependence
CPT/HCPCS: 87880; 99213; G0463

== ENCOUNTER 2025-05-09 11:45 | Emergency (ER) | payer MEDICARE, SELFPAY ==
--- NOTE | ~2025-05-09 | XR_ITS ---
EXAMINATION: XR chest 2V, 05/09/2025 12:10 CDT HISTORY: cough COMPARISON: No comparisons available. Technique: 2 views obtained. Findings: The lungs are clear, no effusion. No pneumothorax. Heart is normal size. Mediastinal and hilar contours are within normal limits. Poststernotomy. Spinal canal catheter noted Impression: No acute cardiopulmonary abnormality. Reviewed, dictated and finalized at location P. Impression: No acute cardiopulmonary abnormality.
[2025-05-09 11:48] VITALS: BP 136/53; PULSE 74; RESP 20; TEMP 36.6; O2SAT 98
--- NOTE | 2025-05-09 11:57 | ED.URI ---
HPI - URI/Sore Throat General Chief Complaint: Upper Respiratory Infection Stated Complaint: congestion/cough Time Seen by Provider: 05/09/25 12:01 Source: patient, RN notes reviewed and old records reviewed Mode of arrival: ambulatory Limitations: no limitations History of Present Illness HPI Narrative: 75 year old male patient accompanied by spouse presents to express care with complaints of weakness, feeling off balanced having cough and feeling hot and cold with chills but no known fever since Friday. reports that patient seems weaker and more feeble today and states that he has complained of feeling worse today..Patient reports that he had diarrhea today also. Patient has taken Mucinex on Friday. reports that she did home COVID test yesterday that was negative. states that patient had been seeing Dr Stanley but is changing doctors to Dr Campos but first appointment is not till May 26. Patient reports that he did have COVID and FLu shot last Friday. Patient reports that his appetite is decreased is diabetic does have continuous glucose monitor and states glucose 150's this morning. states that patient had previous right hip replacement and bone has grown over head of prosthesis, saw Dr Cason and referred him to [facility] ortho and he has appt there on Friday. MD elicited complaint: cough and other (weakness, dizziness, cough, feels hot and cold with chills) Pertinent past history: seasonal allergies and other (strep throat) Onset (ago): day(s) (4) Consistency: progressively worsening Severity: moderate Description of mucous: other (cota) Able to tolerate fluids by mouth: Yes Treatments prior to arrival: other (Mucinex) Related Data Home Medications ?Medication ?Instructions ?Recorded ?Confirmed ?Last Taken ?Type empagliflozin 10 mg tablet 2.5 mg PO DAILY 04/27/20 08/20/24 Unknown History (Jardiance) insulin glargine 100 unit/mL 56 unit subcut DAILY 04/27/20 07/01/24 Unknown History subcutaneous solution (Lantus U-100 Insulin) liraglutide 0.6 mg/0.1 mL (18 mg/3 1.8 mg subcut DAILY 04/27/20 07/01/24 Unknown History mL) subcutaneous pen injector (Victoza 2-Stuart) apixaban 5 mg tablet (Eliquis) See Rx Instructions .Route .COMPLEX 09/01/22 08/20/24 Unknown History budesonide 3 mg 3 mg PO TID 09/01/22 08/20/24 Unknown History capsule,delayed,extended release carvedilol 12.5 mg tablet See Rx Instructions .Route .COMPLEX 09/01/22 08/20/24 12/12/23 History evolocumab 140 mg/mL subcutaneous See Rx Instructions .Route .COMPLEX 09/01/22 08/20/24 Unknown History pen injector (Kendra Lewis) indapamide 2.5 mg tablet 2.5 mg DIRECTED 06/27/23 07/01/24 Unknown History insulin aspart U-100 100 unit/mL 10 unit subcut TID 09/24/23 08/20/24 Unknown History (3 mL) subcutaneous pen (Novolog FlexPen U-100 Insulin aspart) ezetimibe 10 mg tablet 10 mg PO DAILY 07/01/24 08/20/24 Unknown History gabapentin 300 mg capsule 300 mg PO QHS 07/01/24 08/20/24 Unknown History losartan 100 mg tablet 100 mg PO DAILY 07/01/24 08/20/24 Unknown History empagliflozin 25 mg tablet mg 08/20/24 Unknown History (Jardiance) mesalamine 1.2 gram tablet,delayed g PO 08/20/24 Unknown History release insulin glargine 100 unit/mL (3 unit subcut 05/09/25 Unknown History mL) subcutaneous pen (Lantus Solostar U-100 Insulin) Allergies Allergy/AdvReac Type Severity Reaction Status Date / Time Vphoidf-MYJ-HxQ Reductase AdvReac Unknown Other Verified 08/20/24 15:01 Inhibitor (Lfkyqct-Bxr-Vwm Reductase Inhibitor) Review of Systems Review of Systems: CONSTITUTIONAL: Reports malaise, chills, sweats, no known fever. EYES: Denies visual changes, redness, or discharge. ENT: Reports rhinorrhea, congestion,no sinus pain, no otalgia and scratchy sore throat. CARDIOVASCULAR: Denies chest pain, palpitations, bilateral pedal edema RESPIRATORY: Reports no acute cough.? Denies acute dyspnea. GASTROINTESTINAL: Denies abdominal pain, nausea, vomiting, did have diarrhea this morning SKIN: Denies rash or itching. MUSCULOSKELETAL: Denies myalgia. NEUROLOGIC: Denies headache.reports weakness All systems reviewed & are unremarkable except as noted in HPI and below PMFSH Past Medical History Medical History Spinal cord stimulator status CAD (coronary artery disease) PVD (peripheral vascular disease) Elevated serum cholesterol Hypertension Diabetes URI, acute Surgical History Surgical History History of total right hip replacement History of cholecystectomy History of heart surgery 3 vessel bypass S/P vascular bypass bypass grafts bilateral legs Social History Social History Smoking packs per day: 0.5 Smoking cigarettes per day: 10.0 Years smoked: 30 Smoking pack-years: 15.00 Smoking status: Former smoker Tobacco type: cigarettes Second hand tobacco smoke exposure: No Smoking end date: 03/03/03 Alcohol intake: never Substance use: never Substance use type: does not use Living arrangements: with family Gender identity (if verbalized by the patient): Male Spiritual care concerns: No Comments At time of signature, agree with nursing past medical, surgical, social and family history. There is no relevant family history pertinent to the presenting complaint Exam Narrative: GENERAL: Ill-appearing, fair-nourished, and in no acute distress. HEAD: Normocephalic EYES: PERRLA, conjunctivae clear ENT: Nares clear, turbinates edematous and erythematous, clear discharge. Mucous membranes moist. TM pearly pastrana with dull light reflex bilaterally; no tragal tenderness. Oropharynx erythematous without lesions. Tonsils not enlarged and without exudate, no drooling, no hoarseness, no trismus, uvula midline.post nasal drainage noted NECK: Supple. No lymphadenopathy CHEST: crackles in lung bases on auscultation, breath sounds equal. No wheezing, rhonchi, + rales, or stridor. No respiratory distress, speaks in full sentences.SAO2 98% on room air HEART: Regular rate and rhythm. No murmur heard. patient has pedal edema bilaterally SKIN: Warm, dry, no rash. has rash to forehead reports has been receiving treatment for skin cancer with 2 radiation treatment also NEURO: Alert and oriented x3. PSYCH: Normal mood and affect Course Course Emergency Course: Patient is aware of diagnosis, understands and agrees to treatment plan.? Anticipatory guidance given.? Patient agrees to follow-up as directed and is aware of reasons to seek care at the emergency department. Portions of this record may have been created with voice recognition software Level of Care: Express Care Visit Vital Signs Vital signs: Vital Signs Temperature 36.6 C 05/09/25 11:48 Pulse Rate 74 05/09/25 11:48 Respiratory Rate 20 05/09/25 11:48 Blood Pressure 136/53 L 05/09/25 11:48 Pulse Oximetry 98 05/09/25 11:48 Oxygen Delivery Room Air 05/09/25 11:48 Temperature 36.6 C 05/09/25 11:48 Pulse Rate 74 05/09/25 11:48 Respiratory Rate 20 05/09/25 11:48 Blood Pressure 136/53 L 05/09/25 11:48 Pulse Oximetry 98 05/09/25 11:48 Oxygen Delivery Room Air 05/09/25 11:48 Reviewed Transfer Transfered to: [facility] Transportation: Other (per private car with ) Transfer rationale: Patient has increased weakness and dizziness since Friday with some cough and chills symptoms progressively worsening Accepting physician: Dr Moore Transfer comments: To [facility] per private car with for further evaluation MDM - URI/Sore Throat MDM Narrative Medical decision making narrative: Differential diagnosis considered: virus, strep pharyngitis, allergic rhinitis, upper respiratory tract infection, sinusitis, rhinosinusitis, nasopharyngitis. viral pharyngitis, otitis media, otitis externa, pneumonia, bronchitis, viral cough syndrome, viral syndrome, and influenza.? Exam findings show no acute concerns or changes; patient is ill appearing and is in no present distress, transfer to [facility] per private car. [id number] call placed to ED at [facility] with condition update,VS and PMH reviewed with Melanie charge nurse with Dr Moore accepting patient for transfer Differential Diagnosis Differential diagnosis: Likely upper respiratory infection, viral infection, pharyngitis and other (acute cough, pneumonia, weakness, CHF) Medical Records Attestation: I reviewed the patient's medical records. Lab Data Attestation: I reviewed the patient's lab results. Lab results narrative: Influenza A negative, Influenza B negative, strep screen negative, culture sent Labs: Lab Results 05/09/25 Range/Units 12:17 POC Influenza A Ag Negative (Negative) POC Influenza B Ag Negative (Negative) POC Grp A Strep Screen Negative (Negative) reviewed Critical Care Time Critical Care Time Critical Care Time: No Discharge Plan Discharge Clinical Impression: Weakness, Dizziness of unknown cause Patient Disposition: Acute Care Hospital Condition: Stable Patient Language: Greek Prescriptions: No Action ezetimibe 10 mg tablet 10 mg PO DAILY gabapentin 300 mg capsule 300 mg PO QHS losartan 100 mg tablet 100 mg PO DAILY carvedilol 12.5 mg tablet See Rx Instructions .ROUTE .COMPLEX Rx Instructions: as prescribed budesonide 3 mg capsule,delayed,extend.release 3 mg PO TID Repatha SureClick 140 mg/mL pen injector See Rx Instructions .ROUTE .COMPLEX Rx Instructions: as prescribed Eliquis 5 mg tablet See Rx Instructions .ROUTE .COMPLEX Rx Instructions: as prescribed indapamide 2.5 mg tablet 2.5 mg DIRECTED mesalamine 1.2 gram tablet,delayed release (DR/EC) PO Jardiance 25 mg tablet insulin glargine [Lantus Solostar U-100 Insulin] 100 unit/mL (3 mL) insulin pen SUBCUT Lantus U-100 Insulin 100 unit/mL solution 56 unit SUB-Q DAILY Rx Instructions: QAM Victoza 2-Stuart 0.6 mg/0.1 mL (18 mg/3 mL) pen injector 1.8 mg SUB-Q DAILY Jardiance 10 mg tablet 2.5 mg PO DAILY insulin aspart U-100 [Novolog FlexPen U-100 Insulin] 100 unit/mL (3 mL) insulin pen 10 unit SUBCUT TID Follow-up/Referrals: Harms,Derrick Osborne M.D. [Primary Care Provider] Time of Disposition: 13:10 Quality Heriberto Coma Scale Eyes: Open Verbal: Oriented and Alert Motor: Follows Commands Heriberto Coma Total Score: 15
[2025-05-09 12:19] LABS: EDINFLUASCREEN Negative (Negative); EDINFLUBSCREEN Negative (Negative); EDSTREPNEGPOS1 Negative (Negative)
--- OUTSIDE RECORDS SUMMARY | 2025-05-09 13:01 | XMS_ITS | Clinical Summary ---
Author Organization [facility] Address [address] [place] [address] Phone Care Team Providers Care Quality Assurance Director Name Role Phone Eh Stanley MD Primary Care Provider [phone] Allergies Active Allergy Reactions Criticality Noted Date Comments Swhystx-Qzo-Glt Reductase Inhibitors Muscle Pain Low 05/13/2023 Medications [...] mg tabletIndications :Ankylosing spondylitis of thoracolumbar region Take 1-2 Tablets by mouth every 4 [...] on file Legal Sex Male 5:26 AM [employer] Gender Identity Not on file Sexual Orientation Not on file Last Filed Vital Signs Vital Sign Reading Time Taken Comments Blood Pressure 94/61 07/16/2023 2:34 PM [employer] Pulse 74 07/16/2023 2:34 PM [employer] Temperature 36.7 C (98.1 F) 07/16/2023 2:34 PM [employer] Respiratory Rate 16 07/03/2023 12:54 PM [employer] Oxygen Saturation 98% 07/03/2023 12:54 PM [employer] Inhaled Oxygen Concentration - - Weight 85.5 kg (188 lb 9.6 oz) 07/16/2023 2:34 P M [employer] Height 175.3 cm (5' 9) 07/16/2023 2:34 PM [employer] Body Mass Index 27.85 07/16/2023 2:34 PM [employer] Plan of Treatment Health Maintenance Due Date Last Done Comments DIABETES ANNUAL RETINAL EXAM 1969 DIABETES MICROALBUMIN ANNUAL SCREEN 1969 LDL CHOLESTEROL ANNUAL 1969 PNEUMOCOCCAL VACCINE 50+ YEA RS (1 of 2 - PCV) [...] 6 MONTHS 11/12/2023 05/13/2023 INFLUENZA VACCINE (#1) 2025 , 07/25/2017, 05/02/2016, Additional history exists COLORECTAL SCREENING 05/27/2032 05/27/2022, 05/31/2016, 08/25/2012, Additional history exists Colorectal Cancer Screening 05/27/2032 Medical Devices Implanted Type Area Billet Driller Device Identifier Shelf Expiration Date Model / Serial / Lot House Cleaner Patient Intellis [id number] - [id number] Implanted:Qty: 1 on 07/03/2023 by Jayashree Carson MD at [facility] N/A: Back [employer]- NEUROLOGIC TECH [id number] / [id number] / Patient Controller Intellis Ptm Implanted:Qty: 1 on 07/03/2023 by Jayashree Carson MD at [facility] N/A: Back [employer] NEUROLOGIC PAIN MGMT [id number] / [id number] / Description:All Medtronic co mponents are processed on requisition, [id number]. Lead Surescan Vectris Mri [id number] - [id number] Implanted:Qty: 1 on 07/03/2023 by Jayashree Carson MD at [facility] Lead [employer]- NEUROLOGIC TECH 05/16/2027 [id number] / / [id number] Lead Surescan Vectris Mri [id number] - [id number] Implanted:Qty: 1 on 07/03/2023 by Jayashree Carson MD at [facility] Lead [employer]- NEUROLOGIC TECH 05/13/2027 [id number] / [id number] / [id number] Neurostimulator Intellis Adaptivestim Sensor [id number] - [id number] Implanted:Qty: 1 on 07/03/2023 by Jayashree Carson MD at [facility] Neuro Stimulator N/A: Back [employer]- NEUROLOGIC TECH 05/24/2024 [id number] / / [id number] Neuro Absorbable Antibacterial Envelope Implanted:Qty: 1 on 07/03/2023 by Jayashree Carson MD at [facility] Other N/A: Back [employer] NEUROLOGIC PAIN MGMT [id number] 03/27/2024 [id number] / / [id number] Procedures Procedure Name Priority Date/Time Associated Diagnosis Comments HEMOGLOBIN A1C Routine 05/13/2023 3:22 PM CDT from Last 3 Months or Most Recently Relevant to Health Maintenance Results * (ABNORMAL) HEMOGLOBIN A1C (05/13/2023 3:22 PM CDT) HEMOGLOBIN A1C 8.4(H) <5.7 % 05/13/2023 4:[address] [facility] EST. AVG GLUCOSE, A1C 194 mg/dL 05/13/2023 4:[address] [facility] Blood Venipuncture / Unknown 05/13/2023 3:22 PM CDT 05/13/2023 3:[address] [facility] - 05/13/2023 4:23 PM CDT HGB A1C INTERPRETATION NORMAL: <5.7% PRE-DIABETES: 5.7 - 6.4% DIABETES: 6.5% OR GREATER us Jayashree Carson MD CHEMISTRY ORDERABLES Final Resu lt [facility] CLIA# [id number] [address] SH[place]I [place] [id number] from Last 3 Months or Most Recently Relevant to Health Maintenance Insurance [employer] PPO MCR Advance Directives For more information, please contact: [phone] * Full Code (Latest Code Status on File) Date Activated Date Inactivated Comments 07/03/2023 7:51 AM 07/03/2023 3:16 PM Care Teams Quality Assurance Director Relationship Specialty Start Date End Date Eh Stanley MD [address] [id number] PCP - General Internal Medicine 05/06/23
--- OUTSIDE RECORDS SUMMARY | 2025-05-09 13:01 | XMS_ITS | Clinical Summary ---
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 Name Role Phone Alex Sandoval MD Unavailable Vicente Cason MD Unavailable [phone] Derrick Campos MD Primary Care Provider [phone] Allergies Active Allergy Reactions Criticality Noted Date Comments Simvastatin Muscle pain Medium Reaction: Myalgias, Anlhgwp-Qxi-Iyu Reductase Inhibitors Muscle pain,Joint pain Medium Reaction: Joint pain, , Reaction: Myalgias, , Medications lancets (ACCU-CHEK FASTCLIX) misc check blood sugar 3 times daily and as directed 90 each 3 4 Active pen needle, diabetic (UNIFINE PENTIPS PLUS) 31 gauge x 5/16 needle for use with Lantus Solostar, use daily and as directed 100 11 1 Active blood glucose diagnostic (ACCU-CHEK SMARTVIEW TEST STRIP) strip test blood sugar 3 times daily and as directed 300 strip 3 4 Active Additional Information Patient not taking.Reported on 04/28/2025 carvedilol (COREG) 12.5 mg tablet Take 1 tablet (12.5 mg total) by mouth 2 (two) times a day with meals. 180 tablet 3 7 Active liraglutide (VICTOZA) 0.6 mg/0.1 mL (18 mg/3 mL) injectionIndic ations:type 2 diabetes mellitus Inject 1.8 mg under the skin daily Indications: type 2 diabetes mellitus Active kqmsfgjc-jgz-d olic-vit K-lycop 400-20-300 mcg tablet Take 1 tablet by mouth daily. Active nitroglycerin (NITROSTAT) 0.[address] 1 tablet (0.4 mg total) under the tongue every 5 (five) minutes as needed for chest pain Active losartan potassium (LOSARTAN ORAL) Take 100 mg by mouth daily Active insulin glargine (LANTUS) 100 unit/mL injection Inject 56 Units under the skin daily Active Jardiance 10 mg tablet Take 1 tablet (10 mg total) by mouth daily 0 Active Repatha SureClick 140 mg/mL pen injector 3.5 mL (490 mg total) by subcutaneous (via wearable injector) route every 14 (fourteen) days 1 Active Eliquis 5 mg tabletIndicati ons:Claudicati on TAKE 1 TABLET(5 MG) BY MOUTH TWICE DAILY 180 tablet 3 3 Active Additional Information Patient taking differently: 5 mg oral 2 times daily, Reported on 04/28/2025 senna-docusate (PERICOLACE) 8.6-50 mgIndications: constipation Take 2 tablets by mouth 2 (two) times a day 60 tablet 2 4 Active baclofen (LIORESAL) 10 mg tablet Take 2 tablets (20 mg total) by mouth nightly Active ezetimibe (ZETIA) 10 mg tablet Take 1 tablet (10 mg total) by mouth daily 4 Active gabapentin (NEURONTIN) 300 mg capsule Take 1 capsule (300 mg total) by mouth nightly Active indapamide (LOZOL) 1.25 mg tablet Take 1 tablet (1.25 mg total) by mouth daily Active insulin aspart (NovoLOG) 100 unit/mL (3 mL) pen for injection as needed Active ketorolac (ACULAR) 0.5 % ophthalmic solution INSTILL ONE DROP IN OPERATED EYE THREE TIMES DAILY BEGINNING 3 DAYS BEFORE THE SURGERY 4 Active melatonin tablet Take 10 tablets (10 mg total) by mouth nightly as needed Active LANTUS 100 unit/mL (3 mL) pen for injection INJECT 56 UNITS UNDER THE SKIN EVERY MORNING DIRECTED 5 Active budesonide EC (ENTOCORT EC) 3 mg 24 hr capsule TAKE 3 CAPSULES(9 MG) BY MOUTH EVERY MORNING 270 capsule 3 5 Active FreeStyle Barbara 3 Sensor device USE TO MONITOR BLOOD SUGAR EVERY 14 DAYS. 5 Active primidone (MYSOLINE) 50 mg tablet TAKE 1/2 TABLET BY MOUTH EVERY DAY AT BEDTIME 5 Active mesalamine (LIALDA) 1.2 gram EC tablet Take 2 Tablets By Mouth Daily with Breakfast 750 tablet 5 Active mesalamine (LIALDA) 1.2 gram EC tablet Take 2 Tablets By Mouth Daily with Breakfast 750 tablet 4 025 Discontin ued(Reord er) Active Problems Problem Noted Date Diagnosed Date Adenomatous colonic polyps 10/14/2024 Assessment & Plan (10/14/2024 9:45 AM CDT): Patient had multiple adenoma polyps on his last colonoscopy. Patient will need colonoscopy annually. Hx of colonic polyps 10/14/2024 Ulcerative colitis 05/20/2024 Assessment & Plan (04/30/2025 2:05 PM CDT): Overall he seems to have very mild symptoms suggestive of remission. Advised to use probiotics. Stop baclofen. Eat a banana and improved fiber intake daily. Follow up in the office in 6 months. Will check labs including inflammatory markers. Assessment & Plan (10/14/2024 9:43 AM CDT): Long history of ulcerative colitis. In clinical remission on Lialda and budesonide. He will continue Lialda 2.4 g daily and budesonide to 6 mg daily. Assessment & Plan (05/29/2024 1:29 PM CDT): [...] following right hip joint replacement surgery 05/10/2024 Chronic pain 07/03/2023 History of arterial bypass of lower extremity Assessment & Plan (04/17/2021 12:09 PM CDT): His right leg bypass is widely patent with excellent perfusion at rest bilaterally. We'll monitor his bypass with a repeat Duplex scan with ABIs in six months. Acute respiratory failure with hypoxia Shortness of breath 08/26/2020 Pneumonia due to COVID-19 virus 08/25/2020 Claudication 02/24/2018 Overview (02/24/2018): Added automatically from request for surgery [id number] Change in bowel habits 04/14/2017 Assessment & Plan (04/14/2017 3:46 PM CDT): Since nathan has days of alternating C/D. Calculus of gallbladder 07/31/2015 Overview (10/31/2016): Cholelithiasis Chronic coronary artery disease 07/01/2015 Overview (10/31/2016): CAD - Coronary artery disease Coronary arteriosclerosis in pamunkey artery 05/10 Overview (10/31/2016): Atherosclerosis of pamunkey coronary artery of pamunkey heart with angina pectoris Cerebral infarction 11/08/2014 Overview (10/31/2016): CVA (cerebral infarction) Systolic heart failure 11/08/2014 Overview (10/31/2016): Systolic heart failure Rosacea 12/11/2013 Overview (11/01/2016): ROSACEA Type 2 diabetes mellitus 12/11/2013 Overview (11/01/2016): DMII WO CMP UNCNTRLD Primary osteoarthritis of left hip 12/11/2013 Overview (11/01/2016): DJD (degenerative joint disease) of hip Peripheral arterial occlusive disease 12/11/2013 Overview (11/01/2016): PVD (peripheral vascular disease) with claudicatio Benign neoplasm of large intestine 12/11/2013 Overview (11/01/2016): BENIGN NEOPLASM LG BOWEL Osteoarthritis of cervical spine with myelopathy 06/22/2012 Resolved Problems Problem Noted Date Diagnosed Date Resolved Date Primary osteoarthritis of right hip 04/06/2024 05/10/2024 Healthcare maintenance 03/11/201708/23 Medication management 03/11/20172020 Cicatricial ectropion 10/28/20162020 Benign hypertension 12/11/2013 03/11/20 Overview (11/01/2016): BENIGN HYPERTENSION Spinal stenosis of cervical region 06/22/2012 08/23/2020 Cervical radiculopathy 09/19/201108/23 Encounters Date Type Department Care Team Description 04/28/2025 9:00 AM CDT Office Visit [facility] Gastroenterology at [address] [place] [address] Elizabeth Doan MD Ulcerative pancolitis without complication (HCC) (Primary Dx); Ulcerative pancolitis with complication (HCC) 2025 Telephone [facility]ics and Sports Medicine [address] [place] [address] [address] [place] [address] Vicente Cason MD Follow-up 04/21/2025 9:00 AM CDT Office Visit [facility]ics and Sports Medicine [address] [place] [address] [address] [place] [address] Vicente Cason MD Right hip pain (Primary Dx); Aftercare following joint replacement surgery, unspecified joint; Heterotopic ossification of joint 04/21/2025 8:55 AM CDT - 04/21/2025 11:59 PM CDT Hospital Encounter [facility] [address] [place] [address] [address] [place] [address] Discharge Disposition: Discharge to home or self care 04/21/2025 7:45 AM CDT - 04/21/2025 11:59 PM CDT Hospital Encounter [facility] Orthopedics [facility] Sports Medicine [address] [facility] [address] [place] [address] Discharge Disposition: Discharge to home or self care 02/17/2025 3:00 PM CDT Ancillary Procedure [facility] Card[facility] [address] [place] [address] Chronic systolic heart failure (HCC) 02/14/2025 3:30 PM CDT Office Visit [facility] Cardiology [address] [place] [address] Jerardo Wise MD Chronic systolic heart failure (HCC) (Primary Dx); Coronary arteriosclerosis in pamunkey artery from Last 3 Months Immunizations Immunization Administration Dates Next Due Influenza, Quad, Adjuvantated, [...] CANCER EXCISION removed 6 or 7 times COLONOSCOPY 09/30/2024 Medical History Medical History Date Comments Cerebrovascular accident (CVA) (HCC) Stroke Hx Other Medical vit d deficienc y Polyp of colon colon polyps Rosacea rosacea Hx Other Medical 07/04/2012 ER visit for me calista and hematuria Hx Other Medical 07/08/2012 Hospital stay f or intestinal infection Hypercholesterolemia High choles terol; Comments: CAF 05/10/2015 - Hypertension Hypertension Arthritis Arthritis; Comme nts: CAF 05/10/2015 - Type 2 diabetes mellitus Diabete s type 2; Comments: CAF 05/10/2015 - Hx Other Medical Triple bypass Medication monitoring encounter Coronary artery disease Ulcerative colitis Cataract Cancer (HCC) skin cancer Peripheral arterial occlusive disease Systolic heart failure (HCC) Status post insertion of spi nal [...] drink = 0.6 oz pur e alcohol) PHQ-2 Answer Date Recorded PHQ-2 Total Score (If total score is 3 or more points, staff should administer the PHQ-9) 0 04/19/2024 AUDIT-C Answer Date Recorded Q1: How often do you have a drink containing alc ohol? Never 04/28/2025 Average Number of Drinks Not on file 025 Frequency of Binge Drinking Not on file 08/2024 Personal Safety Answer Date Recorded Have you ever been in or are you currently in a harmful physical or emotional relationship or is someone making you feel afraid or unsafe? Denies 09/30/2024 Sex and Gender Information Value Date Recorded Sex Assigned at Not on file Legal Sex Male 11:50 AM K 9 HANDLER/ DEPUTY Gender Identity Not on file Sexual Orientation Not on file Obstetrics History Last Filed Vital Signs Vital Sign Reading Time Taken Comments Blood Pressure 121/65 04/28/2025 8:56 AM CDT Pulse 71 04/28/2025 8:56 AM CDT Temperature 36 C (96.8 F) 09/30/2024 2:18 PM K 9 HANDLER/ DEPUTY Respiratory Rate 16 09/30/2024 2:18 PM K 9 HANDLER/ DEPUTY Oxygen Saturation 95% 04/28/2025 8:56 AM CDT Inhaled Oxygen Concentration - - Weight 85.4 kg (188 lb 4.8 oz) 04/28/2025 8:56 A M CDT Height 175.3 cm (5' 9) 04/28/2025 8:56 AM CDT Body Mass Index 27.81 04/28/2025 8:56 AM CDT Plan of Treatment Upcoming Encounters Date Type Department Care Team (Late st Contact Info) Description 10/24/2025 8:00 AM CDT Hospital Encounter [facility] [address] [place] [address] Elizabeth Doan MD [address] [place] [address] 10/24/2025 8:00 AM CDT - 10/24/2025 8:30 AM CDT Surgery [address] [address] Elizabeth Doan MD [address] [place] [address] COLONOSCOPY Scheduled Procedures Name Priority Associated Diagnoses Date/Ti me COLONOSCOPY Hx of colonic polyps 10/24/2025 8:00 AM CDT Health Maintenance Due Date Last Done Comments Albumin Creatinine Ratio, Urine 1950 Hepatitis B Screening 1969 Pneumococcal vaccine 65+ (1 of 2 - PCV) 1970 Zoster Vaccine (1 of 2) 2001 Prostate Cancer Screening-PSA 01/15/2013 01/15/2011 Well Visit 65+ 2016 Dilated Eye Exam 10/22/2017 10/22/2016 Foot Exam 03/11/2018 03/11/2017, 11/12/2016 DTaP/Tdap/Td Vaccine (2 - Td or Tdap) 04/19/2019 04/19/2009 Hemoglobin A1C 10/06/2024 04/08/2024, 04/27, 08/22/2020, Additional history exists Influenza Vaccine (#1) 2025 , 07/25/2017, 05/02/2016, Additional history exists Depression Screening 04/08/2025 04/08/2024, 08/25/2020, 07/06/2019, Additional history exists eGFR 04/20/2025 04/20/2024, 03/28, 10/21/2020, Additional history exists Fall Risk Assessment 09/30/2025 09/30/2024, 04/08/2024, 07/06/2019, Additional history exists Lipid Panel 02/14/2026 02/14/2025, 05/29, 12/30/2023, Additional history exists Colon Cancer Screening-Colonoscopy 10/01/2027 09/30/2024, 05/27/2022, 05/31/2016, Additional history exists Hepatitis C Screening Completed 11/06/2016 Abdominal Aortic Aneurysm (A AA) Screen Completed 06/12/2024, 07/22/2017, 04/01/2017 Colon Cancer Screening-CT Colonography Discontinued 09/30/2024, 05/27/2022, 05/31/2016, Additional history exists Colon Cancer Screening-DNA Stool Discontinued 09/30/2024, 05/27/2022, 05/31/2016, Additional history exists Colon Cancer Screening-FIT Discontinued 09/30, 05/27/2022, 05/31/2016, Additional history exists Colon Cancer Screening-Sigmoidoscopy Discontinued 09/30/2024, 05/27/2022, 05/31/2016, Additional history exists Medical Devices Implanted Type Area Director Product Device Identifier Shelf Expiration Date Model / Serial / Lot [employer] [id number] Viabahn 6mm 6fr 5cm 120cm Delivery System Superficial Femoral - [id number] - [id number] Implanted:Qty: 1 on 02/27/2018 by Alex Sandoval MD at [facility] Right: Groin [employer] 10/06/2020 [id number] / [id number] / [id number] Angio-Seal Implanted:Qty: 1 on 02/27/2018 by Alex Sandoval MD at [facility] Left: Groin [employer] [id number] 05/27/2018 [id number] / [id number] / [id number] [employer] [place] 58mm Sector Hip Shell Acetabular Gription Sterile Latex Free [id number] - [id number] Implanted:Qty: 1 on 04/19/2024 by Vicente Cason MD at [facility] Right: Hip [employer] [id number] 08/27/2033 [id number] / / [id number] [employer] [place] 58mm 36mm Hip Neutral Liner Acetabular Altrx Sterile Latex Free [id number] - [id number] Implanted:Qty: 1 on 04/19/2024 by Vicente Cason MD at [facility] Right: Hip [employer] [id number] 12/25/2028 [id number] / / [id number] [employer] [place] 6.5mm 35mm Acetabular Cancellous Screw Bone Sterile 1217-35-500 - [id number] Implanted:Qty: 1 on 04/19/2024 by Vicente Cason MD at [facility] Right: Hip [employer] [id number] 12/25/2033 1217-35-500 / / [id number] [employer] [place] 6.5mm 35mm Acetabular Cancellous Screw Bone Sterile [id number] - [id number] Implanted:Qty: 1 on 04/19/2024 by Vicente Cason MD at [facility] Right: Hip [employer] [id number] 04/26/2033 1217-35-500 / / [id number] [employer] Actis Collar Hip 7 High Offset Stem Femoral [id number] - [id number] Implanted:Qty: 1 on 04/19/2024 by Vicente Csaon MD at [facility] Right: Hip [employer] [id number] 01/24/2034 [id number] / / [id number] [employer] Articul/Estevan 36mm Cementless Hip +5mm 12/14 Taper Head Femoral Latex Free [id number] - [id number] Implanted:Qty: 1 on 04/19/2024 by Vicente Cason MD at [facility] Right: Hip [employer] [id number] 01/24/2029 [id number] / / [id number] Procedures Procedure Name Priority Date/Time Associated Diagnosis Comments XR SPINE LUMBAR 2 OR 3 VIEWS Schedule Routine, Read Routine (OP Routine) 04/21/2025 8:56 AM CDT Right hip pain XR HIP RIGHT 2 OR 3 VIEWS Schedule Routine, Read Routine (OP Routine) 04/21/2025 8:54 AM CDT Right hip pain TRANSTHORACIC ECHO (TTE) COMPLETE W DOPPLER/CF WO CONTRAST Routine 02/17/2025 4:16 PM CDT Chronic systolic heart failure (HCC) POCT LIPID PANEL Routine 02/14/2025 4:06 PM CDT Coronary arteriosclerosis in pamunkey artery COLONOSCOPY 09/30/2024 11:56 AM K 9 HANDLER/ DEPUTY CT ABDOMEN PELVIS WO CONTRAST Schedule Routine, Read Routine (OP Routine) 06/12/2024 9:34 AM K 9 HANDLER/ DEPUTY Diarrhea of infectious origin Ulcerative pancolitis with complication (HCC) EGFR Routine 04/20/2024 4:24 AM CDT HEMOGLOBIN A1C Routine 04/08/2024 9:32 AM CDT Pre-operative exam DIABETES FOOT EXAM Routine 11/12/2016 HEPATITIS C SCREENING Routine 11/06/2016 DIABETES EYE EXAM Routine 10/22/2016 PSA SCREENING Routine 01/15/2011 from Last 3 Months or Most Recently Relevant to Health Maintenance Results * XR Spine Lumbar 2 or 3 Views (04/21/2025 8:56 AM CDT) Anatomical Region Laterality Modality Spine N/A Digital Radiogra phy Narrative 04/21/2025 12:48 PM CDT Degenerative change noted in the lower lumbar segments Vicente Cason MD IMG XR PROCEDURES Final Result * XR Hip Right 2 or 3 Views (04/21/2025 8:54 AM CDT) Anatomical Region Laterality Modality Lower Extremities, Hip, Pelvis Right D igital Radiography Narrative 04/21/2025 12:48 PM CDT Right total hip arthroplasty in appropriate position with no interval change of the components. However there is increased evidence of progressive heterotopic ossification in the abductors. Vicente Cason MD IMG XR PROCEDURES Final Result * TRANSTHORACIC ECHO (TTE) COMPLETE W DOPPLER/CF WO CONTRAST (02/17/2025 4:16 PM CDT) Estimated EF 55 % CONS SCIMAGE EF Mod BP 54 % CONS SCIMAGE Anatomical Region Laterality Modality Ultrasound 02/17/2025 3:17 PM CDT Narrative 02/17/2025 4:48 PM CDT [facility] Card[facility] [address] [facility] [address] [address] [address] [facility] [address], [place] [address] P:[phone] P:[phone] Echocardiographic Report Patient Name: JOHN RIVERA E : 1950 Study Date: 02/17/2025 3:17:08 PM Gender: M Community Resource Consultant: Jennifer Renner (Nick)([place]), [facility] Location: [place] Ref Provider: JERARDO WISE Height(Cm): 175 BSA: 2.04 Weight(Kg): 85.7 Heart Rate: 71 BP: 122 / 68 Quality: Good Order Provider: JERARDO WISE PROCEDURES: Echocardiographic Report: Transthoracic echocardiogram with complete 2D, M-Mode, and color Doppler examination. With Strain Analysis. INDICATIONS: I50.22 Chronic systolic (congestive) heart failure. MEASUREMENTS: 2D/MM Value Range Doppler Value Range EF Mod BP 54 % [ 52 - 72 ] RICHARD Vmax 2.33 cm2 [ 2.00 - 4.00 ] Estimated EF 55 % AV Mean PG 2 mmHg LV GLS -13.64 % AV Peak Cooper 1.06 m/s [ 1.00 - 1.70 ] LVIDd 2D 3.94 cm [ 4.20 - 5.80 ] AV Peak PG 5 mmHg LVIDs 2D 2.82 cm [ 2.50 - 4.00 ] AV VTI 19.86 cm LVPWd 2D 1.29 cm [ 0.60 - 1.00 ] LVOT Diam 1.96 cm [ 1.70 - 2.10 ] IVSd 2D 1.33 cm [ 0.60 - 1.00 ] LVOT Peak Cooper 0.82 m/s [ 0.70 - 1.10 ] AoR Diam 2D 3.99 cm [ 3.10 - 3.70 ] LVOT VTI 17.39 cm LA Volume 41.50 ml [ 18.00 - 58.00 ] PV Peak Cooper 1.11 m/s [ 0.40 - 0.80 ] LA Volume Index 20 cc/m2 [ 16 - 28 ] RV S` 8.49 mmHg RA Volume 17.19 ml Tapse 2.02 cm [ 1.71 - 5.00 ] 2D/MM Value Range Doppler Value Range - FINDINGS: Interpretation Site: Exam was interpreted at [facility]. Left Ventricle: Normal left ventricular size. Mild concentric left ventricular hypertrophy. Normal global left ventricular systolic function. Impaired diastolic relaxation Grade I. Ejection fraction is measured at 54 %. Ejection Fraction is visually estimated to be 55 %. Global Longitudinal Strain is -14 %. Right Ventricle: Normal right ventricular size. Left Atrium: The left atrium is normal in size. Right Atrium: The right atrium is normal in size. Atrial Septum: Normal atrial septum. Mitral Valve: Normal appearance of the mitral valve. Mild mitral valve regurgitation. Aortic Valve: Normal appearance of the aortic valve. Tricuspid Valve: Normal appearance of the tricuspid valve. Pulmonic Valve: Normal appearance of the pulmonic valve. Trivial regurgitation in the pulmonic valve. Pericardium: Normal pericardium with no significant pericardial effusion. Aorta: Normal aortic root. IVC: The IVC is not well visualized. Pulmonary Artery: Normal pulmonary artery size. CONCLUSIONS: Normal left ventricular size. Mild concentric left ventricular hypertrophy. Normal global left ventricular systolic function. Impaired diastolic relaxation Grade I. Ejection fraction is measured at 54 %. Ejection Fraction is visually estimated to be 55 %. Global Longitudinal Strain is -14 %. The left atrium is normal in size. Normal appearance of the mitral valve. Mild mitral valve regurgitation. Normal appearance of the aortic valve. Electronically Signed By: Jerardo Wise MD, [facility] 02/17/2025 4:48:12 PM CDT Procedure Note Jerardo Wise MD - 02/17/2025 [facility] Card[facility] [address] [facility] [address] [address] [address] [facility] [address], [place] [address] P:[phone] P:[phone] Echocardiographic Report Patient Name: JOHN RIVERA E : 1950 Study Date: 02/17/2025 3:17:08 PM Gender: M Community Resource Consultant: Jennifer Hayes)([place]), [facility] Location: [facility] Provider: JERARDO WISE Height(Cm): 175 BSA: 2.04 Weight(Kg): 85.7 Heart Rate: 71 BP: 122 / 68 Quality: Good Order Provider: JERARDO WISE PROCEDURES: Echocardiographic Report: Transthoracic echocardiogram with complete 2D, M-Mode, and color Dopplerexamination. With Strain Analysis. INDICATIONS: I50.22 Chronic systolic (congestive) heart failure. MEASUREMENTS: 2D/MM Value Range Doppler ValueRange EF Mod BP 54 % [ 52 - 72 ] RICHARD Vmax 2.33cm2 [ 2.00 - 4.00 ] Estimated EF 55 % AV Mean PG 2mmHg LV GLS -13.64 % AV Peak Cooper 1.06m/s [ 1.00 - 1.70 ] LVIDd 2D 3.94 cm [ 4.20 - 5.80 ] AV Peak PG 5mmHg LVIDs 2D 2.82 cm [ 2.50 - 4.00 ] AV VTI 19.86cm LVPWd 2D 1.29 cm [ 0.60 - 1.00 ] LVOT Diam 1.96cm [ 1.70 - 2.10 ] IVSd 2D 1.33 cm [ 0.60 - 1.00 ] LVOT Peak Cooper 0.82m/s [ 0.70 - 1.10 ] AoR Diam 2D 3.99 cm [ 3.10 - 3.70 ] LVOT VTI 17.39cm LA Volume 41.50 ml [ 18.00 - 58.00 ] PV Peak Cooper 1.11m/s [ 0.40 - 0.80 ] LA Volume Index 20 cc/m2 [ 16 - 28 ] RV S` 8.49mmHg RA Volume 17.19 ml Tapse 2.02cm [ 1.71 - 5.00 ] 2D/MM Value Range Doppler ValueRange - FINDINGS: Interpretation Site: Exam was interpreted at [facility]. Left Ventricle: Normal left ventricular size. Mild concentric left ventricularhypertrophy. Normal global left ventricular systolic function. Impaired diastolic relaxation Grade I.Ejection fraction is measured at 54 %. Ejection Fraction is visually estimated adali 55 %. Global Longitudinal Strain is -14 %. Right Ventricle: Normal right ventricular size. Left Atrium: The left atrium is normal in size. Right Atrium: The right atrium is normal in size. Atrial Septum: Normal atrial septum. Mitral Valve: Normal appearance of the mitral valve. Mild mitral valve regurgitation. Aortic Valve: Normal appearance of the aortic valve. Tricuspid Valve: Normal appearance of the tricuspid valve. Pulmonic Valve: Normal appearance of the pulmonic valve. Trivial regurgitation in thepulmonic valve. Pericardium: Normal pericardium with no significant pericardial effusion. Aorta: Normal aortic root. IVC: The IVC is not well visualized. Pulmonary Artery: Normal pulmonary artery size. CONCLUSIONS: Normal left ventricular size. Mild concentric left ventricularhypertrophy. Normal global left ventricular systolic function. Impaired diastolic relaxation Grade I.Ejection fraction is measured at 54 %. Ejection Fraction is visually estimated adali 55 %. Global Longitudinal Strain is -14 %. The left atrium is normal in size. Normal appearance of the mitral valve. Mild mitral valve regurgitation. Normal appearance of the aortic valve. Electronically Signed By: Jerardo Wise MD, [facility] 02/17/2025 4:48:12 PM CDT us Jerardo Wise MD CV ECHO PROCEDURES Final Result * (ABNORMAL) POCT lipid panel (02/14/2025 4:06 PM CDT) Cholesterol, POC 136 <200 MG/DL HDL, POC 43 >=40 mg/dL Triglycerides, POC 200(A) <=149 mg/dL LDL Cholesterol POC 53 <=129 mg/dL Chol/HDL Ratio, POC 1.2 NONE Non-HDL Cholesterol, POC 93 NONE mg/dL Cholesterol Total, POC 136 30 - 199 mg/dL Capillary blood 02/14/2025 4 :06 PM CDT us Jerardo Wise MD POINT OF CARE TEST ORDER JAC Final Result * Colonoscopy (09/30/2024 11:56 AM K 9 HANDLER/ DEPUTY) Anatomical Region Laterality Modality Other Narrative Procedure Note Elizabeth Doan MD - 09/30/2024 11:56 AM CST [facility] Patient Name: John Rivera Procedure Date: 09/30/2024 11:56 AM Date of : 1950 Admit Type: Outpatient Age: 74 Gender: Male Attending MD: Elizabeth Doan M.D. Room: [facility] RO[facility] 1 Note Status: Finalized Patient Profile: This is a 74 year old male. Patient with longhistory of ulcerative colitis. He is in clinical remission taking Lialda 2.4 g daily and budesonide 9 mgtablets. Procedure: Colonoscopy Indications: High risk colon cancer surveillance: Ulcerative pancolitis of 8 (or more) years duration, Last colonoscopy: April 2022 Referring MD: Eh Stanley M.D. Providers: Elizabeth Doan M.D. Impression: - Two 6 to 8 mm polyps in the cecum, removed with a cold snare. Resected and retrieved. - Overall colonic mucosa was unremarkable withconsent colitis mainly in the left side of the colon.Random colon biopsy performed - Multiple pseudo polyps in the descending colonand sigmoid colon.. Biopsied. - Three 5 to 12 mm polyps in the sigmoid colon, removed with a cold snare. Resected andretrieved. - Internal hemorrhoids. Recommendation: - Await pathology results. - Repeat colonoscopy in 1 year for surveillance. - Continue present medications. Use budesonide 2 capsules daily instead of 3. - Schedule follow up appointment in the GI office continue follow of colitis.. Medicines: Monitored Anesthesia Care Complications: No immediate complications. Estimated Blood Loss: Estimated blood loss: none. Procedure: Pre-Anesthesia Assessment: - Prior to the procedure, a History and Physicalwas performed, and patient medications and allergieswere reviewed. The patient's tolerance of previous anesthesia was also reviewed. The risks andbenefits of the procedure and the sedation options and risks were discussed with the patient. All questions were answered, and informed consent was obtained. Prior Anticoagulants: The patient has taken noanticoagulant or antiplatelet agents. After reviewing the risksand benefits, the patient was deemed in satisfactory condition to undergo the procedure. The benefits, risks and alternatives of theprocedure and sedation were discussed and informed consentwas obtained. All questions were answered. Please referto the signed informed consent document in the medical record. The bowel preparation used was Miralax via split dose instruction. The bowel preparation usedwas bisacodyl tablets via split dose instruction. The scope was passed under direct vision. The Pediatric Colonoscope PCF-H190L [id number] was introducedthrough the anus and advanced to the the cecum, identifiedby appendiceal orifice and ileocecal valve. Thequality of the bowel preparation was good. Bowel prep was administered using a split dose. Findings: The perianal and digital rectal examinations were normal. The appendiceal orifice appeared normal. Two sessile polyps were found in the cecum. The polyps were 6 to 8 mmin size. These polyps were removed with a cold snare. Resection and retrieval were complete. The transverse colon and ascending colon appeared normal. Milderythema and scarring noted in the descending colon sigmoid colon indicativeof inactive colitis. Random biopsies were taken with a cold forceps for histology from the entire colon. Multiple sessile polyps were found in the sigmoid colon anddescending colon all suggestive of pseudo polyps. The polyps were 3 to 6 mm in size. Biopsies were taken with a cold forceps for histology from 6 polyps. Three sessile polyps were found in the sigmoid colon. The polyps were5 to 12 mm in size. These polyps were removed with a cold snare.Resection and retrieval were complete. Internal hemorrhoids were found during retroflexion. The hemorrhoids were small. Electronically signed by Elizabeth Doan M.D. Elizabeth Doan M.D. 09/30/2024 2:00:40 PM Number of Addenda: 0 Note Initiated On: 09/30/2024 11:56 AM Procedure Code(s): --- Professional --- 68524, Colonoscopy, flexible; with removal of tumor(s), polyp(s), or other lesion(s) by snare technique 49641, 59, Colonoscopy, flexible; with biopsy, single or multiple Diagnosis Code(s): --- Professional --- K51.00, Ulcerative (chronic) pancolitis without complications K64.8, Other hemorrhoids D12.0, Benign neoplasm of cecum D12.4, Benign neoplasm of descending colon D12.5, Benign neoplasm of sigmoid colon CPT copyright 2020 [employer]. All rights reserved. The codes documented in this report are preliminary and upon waxer floor reviewmay be revised to meet current compliance requirements. Recognized by the [employer] for promoting quality in endoscopy us Elizabeth Doan MD ENDOSCOPY PROCEDURES Final Result * CT Abdomen Pelvis WO Contrast (06/12/2024 9:34 AM K 9 HANDLER/ DEPUTY) Anatomical Region Laterality Modality Body N/A Computed Tomogra phy 06/16/2024 2:29 PM K 9 HANDLER/ DEPUTY Narrative 06/16/2024 2:44 PM K 9 HANDLER/ DEPUTY EXAM DESCRIPTION: CT ABDOMEN PELVIS WO CONTRAST REASON FOR STUDY: Inflammatory bowel disease, ulcerative colitis C/o intermittent diarrhea for a few years Hx of cholecystectomy and ulcerative colitis TECHNIQUE: CT scan of the abdomen and pelvis performed without intravenous and without oral contrast using helical scanning technique. Reconstructed coronal and sagittal MPR images reviewed. All images stored on PACS. Automated exposure control was used as a dose optimization technique for this examination. COMPARISON: 07/22/2017 FINDINGS: The sensitivity for detection of visceral lesions is diminished without the use of intravenous contrast. LOWER CHEST: No significant pulmonary abnormalities. No effusion. Coronary artery calcification. Recommend clinical correlation for coronary artery disease. LIVER: Normal size. No identified cystic or solid masses. GALLBLADDER: Surgically absent. BILE DUCTS: No intrahepatic or extrahepatic ductal dilatation. SPLEEN: Normal size. No focal lesions. Calcified granulomas. PANCREAS: No identified cystic or solid masses. No significant calcifications. No adjacent inflammation or peripancreatic fluid collections. Pancreatic duct not dilated. ADRENALS: Normal. KIDNEYS/URINARY TRACT: Probable bilateral renal cysts. No stones. No hydronephrosis or hydroureter. Urinary bladder is unremarkable. GI: No dilated bowel loops. No obvious wall thickening. Normal appendix. No significant diverticular disease. PERITONEUM: No ascites or free air. RETROPERITONEUM: No mass or adenopathy. REPRODUCTIVE: No significant abnormality. VASCULATURE: No abdominal aortic aneurysm. Atherosclerotic calcification of the abdominal aorta and [...] Crescencio Harman M.D. KT: HUBER Report ID: [id number] Reading Location: [place] [address] Procedure Note Crescencio Harman MD - 06/16/2024 [...] Electronically signed by Crescencio Harman M.D. KT: KT Report ID: [id number] Reading Location: [id number] us Elizabeth Doan MD IMG CT PROCEDURES Final Re sult * eGFR (04/20/2024 4:24 AM CDT) eGFR 71 >=60 mL/min/1. 73 m2 Comment: Interpretive Data Reference Interval Normal >/= 90 mL/min/1.73m2 Mildly decreased* 60 - 89 mL/min/1.73m2 Mildly to moderately decreased 45 - 59 mL/min/1.73m2 Moderately to severely decreased 30 - 44 mL/min/1.73m2 Severely decreased 15 - 29 mL/min/1.73m2 Kidney Failure < 15 mL/min/1.73m2 *Relative to young adult level Estimated glomerular filtration rate is determined by the 2020 CKD-EPI equation recommended by the National Kidney Foundation (A Unifying Approach to GFR Estimation: Recommendations of the NKF-ASK Task Force on Reassessing the Inclusion of Race in Diagnosing Kidney Disease, JASN 202). The CKD-EPI equation should not be used for patients with unstable renal function and has not been validated in children and those over 70. Current interpretive data was last reviewed 2021. Blood 04/20/2024 4:24 AM CDT 04/20/2024 5:10 AM CDT us Olga Lidia Oliver NP LAB BLOOD ORDERABLES Fi nal Result Performing Organization Address [facility] Co de Phone Number [facility] ([email or web address]) [address] [place] [address] * (ABNORMAL) Hemoglobin A1c (04/08/2024 9:32 AM CDT) Pathologist [facility] Hgb A1C 7.0(H) 4.0 - 5.6 % Estimated Average Glucose 154 mg/dL ROBERT BASHIR (LUDWIG) Comment: The ADA recommends reporting an estimated Average Glucose (eAG) with all Hemoglobin A1c results using the equation derived from a study of 507 normal and diabetic adults. Minority populations were underrepresented and children were not included. (Diabetes Care 31:2430-9289, 2008). The eAG is not equivalent to a fasting glucose. Blood 04/08/2024 9:32 AM CDT 04/08/2024 10:52 AM CDT Vicente Cason MD LAB BLOOD ORDERABLES Fin al Result Performing Organization Address [facility] Co de Phone Number [facility] (LUDWIG) [address] [facility] [place] [address] * DIABETES FOOT EXAM (11/12/2016) Pathologist [facility] Diabetic Foot Exam Unknown Historical Provider HEALTH MAINTENANCE Final Result * HEPATITIS C SCREENING (11/06/2016) Pathologist [facility] HEP C Normal Comment:Negative Historical Provider HEALTH MAINTENANCE Final Result * DIABETES EYE EXAM (10/22/2016) [facility] Diabetic Eye Exam Unknown Historical Provider HEALTH MAINTENANCE Final Result * PSA SCREENING (01/15/2011) Pathologist [facility] PSA Normal Result [facility] Historical Provider HEALTH MAINTENANCE Final Result from Last 3 Months or Most Recently Relevant to Health Maintenance Insurance [facility] MEDICARE [facility] MEDICARE UHC MEDICARE ADVANTAGE AETNA MEDICARE Advance Directives For more information, please contact: [phone] * Full Code (Latest Code Status on File) Date Activated Date Inactivated Comments 09/30/2024 12:02 PM 09/30/2024 6:50 PM * Full Code Date Activated Date Inactivated Comments 09/30/2024 12:02 PM 09/30/2024 12:02 PM * Full Code Date Activated Date Inactivated Comments 04/19/2024 3:12 PM 04/20/2024 5:35 PM * Full Code Date Activated Date Inactivated Comments 05/27/2022 10:34 AM 05/27/2022 5:11 PM * Full Code Date Activated Date Inactivated Comments 05/27/2022 10:34 AM 05/27/2022 10:34 AM Care Teams Icer Machine Operator Relationship Specialty Start Date End Date Der[place] [address] PCP - General Family Medicine 04/28/25 Alex Sandoval MD Surgeon Vascular Surgery 08/15/20 Vicente Cason MD [address] [place] [address] [place] [address] Surgeon Orthopedic Surgery 04/20/24
--- OUTSIDE RECORDS SUMMARY | 2025-05-09 13:01 | XMS_ITS | Encounter Summary ---
Author Organization [facility] Address [address] [facility] [place] [address] Care Team Providers Care Intelligence Officer Basic Name Role Phone Eh Stanley MD Primary Care Provider [phone] [phone] Encounter Details Date Type Department Care Team (Late Contact Info) Description 11/27/2022 Lab Requisition [facility] DermPath Lab [address] [place] [address] Nestor Gillis MD [address] [place] [address] Social History Tobacco Use Types Packs/Day Years Used Date Smoking Tobacco: Never Assessed Sex and Gender Information Value Date Recorded Sex Assigned at Not on file Legal Sex Male 6:24 PM LEADLIGHTER Gender Identity Male 01/20/2024 11:01 AM CDT Sexual Orientation Not on file documented as of this encounter Plan of Treatment Upcoming Encounters Date Type Department Care Team (Late Contact Info) Description 07/05/2025 11:00 AM LEADLIGHTER Appointment [facility] Vascular Services [address] [place] [address], [address] [place] [address] 07/05/2025 11:30 AM LEADLIGHTER Office Visit [facility] Medical Group - Surgery [address] [place] [address], [address] [place] [phone] Alex Sandoval MD [address] [place] [address] [address] [place] [phone] documented as of this encounter Procedures Procedure Name Priority Date/Time Associated Diagnosis Comments DERMATOPATHOLOGY Routine 11/26/2022 12:0 0 AM CDT documented in this encounter Results * DERMATOPATHOLOGY (11/26/2022 12:00 AM CDT) Case Report Dermatopathology Report Case: [id number] Authorizing Provider: Nestor Gillis MD Collected: 11/26/2022 12:00 AM Ordering Location: [facility] DermPath Lab Received: 11/27/2022 04:15 PM Pathologist: [place] Billings MD Specimen: Skin, right forehead 12:47 PM CDT DERMATOPATHOLOGY LABORATORY Final Diagnosis Specimen A. SKIN, right forehead: SEBACEOUS HYPERPLASIA (L73.8) PRESENT AT MARGIN 12:47 PM CDT DERMATOPATHOLOGY LABORATORY at 1247 CDT Clinical History R/O BCC 12:47 PM CDT DERMATOPATHOLOGY LABORATORY Gross Description Specimen A: Received is one formalin filled container labeled with the patients name and designated right forehead. The specimen consists of a shave removal measuring 5x5x1 mm. Jar 0. 12:47 PM CDT DERMATOPATHOLOGY LABORATORY Microscopic Description Specimen A. SKIN, right forehead: There are prominent sebaceous gland lobules surrounding a dilated hair follicle. This lesion is present at the margin of the specimen. 12:47 PM CDT DERMATOPATHOLOGY LABORATORY Disclaimer An external and internal positive and negative controls are appropriate for the histochemical, immunohistochemical and immunofluorescence stain(s) in this case (if any), except where stated explicitly. The performance characteristics of the stain(s) cited in this report were developed and its performance characteristic determined by the Dermatopathology Laboratory at [facility], directed by Dr. Sepideh Arrington. These tests need not be, and therefore are not, approved by the [place] Food and Drug Administration. The tests are used for clinical purposes. Billing Codes Specimen Charges Stain Charges 88922 1 12:47 PM CDT DERMATOPATHOLOGY LABORATORY Embedded Images 12:47 PM CDT DERMATOPATHOLOGY LABORATORY Pathology/Cytolog y TISSUE SPECIMEN FROM SKIN / Unknown 11/26/2022 11/27/2022 4:15 PM CDT us Nestor Gillis MD LAB - PATHOLOGY/CYTOLOGY ORD ERABLES Final Result DERMATOPATHOLOGY LABORATORY [facility] - Department of Dermatology [facility] [address] [place] [address], [address] [phone] documented in this encounter Visit Diagnoses Not on filedocumented in this encounter Care Teams Intelligence Officer Basic Relationship Specialty Start Date End Date Eh Stanley MD [address] [place] [address] PCP - General Internal Medicine 01/20/24 documented as of this encounter
--- OUTSIDE RECORDS SUMMARY | 2025-05-09 13:01 | XMS_ITS | Encounter Summary ---
Author Organization [facility] Address [address] [place] [address] Care Team Providers Care On Site Manager Name Role Phone Eh Stanley MD Primary Care Provider [phone] Encounter Details Date Type Department Care Team (Late Contact Info) Description 08/25/2023 Lab Requisition [facility] - DermPath Lab [address] [place] [address] Nestor Gillis MD [address] [place] [address] Social History Tobacco Use Types Packs/Day Years Used Date Smoking Tobacco: Never Assessed Sex and Gender Information Value Date Recorded Sex Assigned at Not on file Legal Sex Male 6:24 PM GUT SORTER Gender Identity Male 01/20/2024 11:01 AM CDT Sexual Orientation Not on file documented as of this encounter Plan of Treatment Upcoming Encounters Date Type Department Care Team (Late Contact Info) Description 07/05/2025 11:00 AM GUT SORTER Appointment [facility] Vascular Services [address] [place] [address], [address] [place], [place] [id number] 07/05/2025 11:30 AM GUT SORTER Office Visit [facility] - Surgery [address] [place] [address], [address] [place] [address] Alex Sandoval MD [address] [place] [address] [address] [place] [phone] documented as of this encounter Procedures Procedure Name Priority Date/Time Associated Diagnosis Comments DERMATOPATHOLOGY Routine 08/20/2023 3:33 AM GUT SORTER documented in this encounter Results * DERMATOPATHOLOGY (08/20/2023 3:33 AM GUT SORTER) Case Report Dermatopathology Report Case: [id number] Authorizing Provider: Nestor Gillis MD Collected: 08/20/2023 03:33 AM Ordering Location: [facility] DermPath Lab Received: 08/25/2023 07:43 AM Pathologist: [place] Billings MD Specimen: Skin, right ear helix rim 2:11 PM [facility] DERMATOPATHOLOGY LABORATORY Final Diagnosis Specimen A. 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 The specimen consists of a(3) pieces shave biopsy measuring 8x6x3, 3x5x1, 4x5x1 mm. Jar 0. 2:11 PM [facility] DERMATOPATHOLOGY LABORATORY Microscopic Description Specimen A. SKIN, right ear helix rim: The epidermis shows parakeratosis, full thickness disorderly maturation of keratinocytes, mitoses at different levels, and dyskeratotic cells. 2:11 PM [facility] DERMATOPATHOLOGY LABORATORY Disclaimer An external and internal [...] purposes. Billing Codes Specimen Charges Stain Charges 35073 1 2:11 PM [facility] DERMATOPATHOLOGY LABORATORY Embedded Images 2:11 PM [facility] DERMATOPATHOLOGY LABORATORY Pathology/Cytolo gy TISSUE SPECIMEN FROM SKIN / Unknown 08/20/2023 3:33 AM GUT SORTER 08/25/2023 7:43 AM GUT SORTER Nestor Gillis MD LAB - PATHOLOGY/CYTOLOGY ORD ERABLES Final Result DERMATOPATHOLOGY LABORATORY [facility] - Department of Dermatology [facility] [address] [place] [address], [address] [phone] documented in this encounter Visit Diagnoses Not on filedocumented in this encounter Care Teams On Site Manager Relationship Specialty Start Date End Date Eh Stanley MD [address] [place] [address] PCP - General Internal Medicine 01/20/24 documented as of this encounter
--- OUTSIDE RECORDS SUMMARY | 2025-05-09 13:01 | XMS_ITS | Clinical Summary ---
Author Organization [facility] Address [address] [facility] [place] [address] Care Team Providers Care Chief Financial Officer Name Role Phone Eh Stanley MD Primary Care Provider [phone] Source Comments [facility],non-owned Affiliates and Associated Physician Practices is amultiple site organization consisting of ambulatory clinics and hospital sitesin [place], [place], [place]. This disclosure is being madepursuant to the Care Everywhere program and may not contain all information available regarding this patient. Last updated 18.[facility] [employer] Allergies Active Allergy Reactions Criticality Noted Date Comments Simvastatin Myalgias 01/20/2024 Reaction: Myalgias, Medications * Be aware that medications may not be up to date on this document. Alwaysverify current medications with the patient. gabapentin (Neurontin) 300 MG capsule Take 1 (one) capsule by mouth at bedtime Active Victoza 18 MG/3ML pen Inject 1.8 mg subcutaneously once daily Active insulin glargine (Lantus/Semgle e) 100 units/ml injection Inject 56 (fifty six) Units subcutaneously once daily Active baclofen (Lioresal) 10 MG tablet Take 2 (two) tablets by mouth at bedtime Active budesonide (Entocort EC) 3 MG capsule Take 3 (three) capsules by mouth every morning 4 Active carvedilol (Coreg) 12.5 MG tablet Take 1 (one) tablet by mouth 2 times daily with morning and evening meal Active empagliflozin (Jardiance) 10 MG tablet Take 1 (one) tablet by mouth once daily Active ezetimibe (Zetia) 10 MG tablet Take 1 (one) tablet by mouth once daily 4 Active insulin aspart (NovoLOG) FlexPen Inject 10 (ten) Units subcutaneously daily before dinner 4 Active losartan (Cozaar) 100 MG tablet Take 1 (one) tablet by mouth once daily Active mesalamine EC (Lialda) 1.2 g tablet Take 2 (two) tablets by mouth daily with breakfast 4 Active Eliquis 5 MG tabletIndicati ons:PAD (peripheral artery disease) Take 1 (one) tablet by mouth 2 times daily 360 tablet 3 4 Active Active Problems Problem Noted Date Diagnosed [...] on file Legal Sex Male 6:24 PM DIGITAL ART DIRECTOR Gender Identity Male 01/20/2024 11:01 AM CDT Sexual Orientation Not on file Last Filed Vital Signs Vital Sign Reading Time Taken Comments Blood Pressure - - Pulse - - Temperature - - Respiratory Rate - - Oxygen Saturation - - Inhaled Oxygen Concentration - - Weight 86.2 kg (190 lb) 07/13/2024 11:24 AM DIGITAL ART DIRECTOR Height 175.3 cm (5' 9.02) 07/13/2024 11:24 AM [facility] Body Mass Index 28.05 07/13/2024 11:24 AM DIGITAL ART DIRECTOR Plan of Treatment Upcoming Encounters Date Type Department Care Team (Late st Contact Info) Description 07/05/2025 11:00 AM DIGITAL ART DIRECTOR Appointment [facility] Health Vascular Services [address] [place] [address], [address] [address] 07/05/2025 11:30 AM DIGITAL ART DIRECTOR Office Visit [facility] Health Medical Group - Surgery [address] [place] [address], [address] [address] Alex Sandoval MD [address] [place] [address] [place] [phone] Health Maintenance Due Date Last Done Comments COLOGCASEY (AGES 45-75) - COLON CA SCREENING 1950 CT COLONOGRAPHY - COLON CA SCREENING 1950 FIT - COLON CA SCREENING 1950 FLEX SIG - COLON CA SCREENING 1950 HEPATITIS C SCREENING 04/22/1969 DTAP/TDAP/TD VACCINES (1 - Tdap) 1970 PNEUMOCOCCAL VACCINE 50+ (1 of 1 - PCV) 2001 ZOSTER VACCINE (1 of 2) 2001 Respiratory Syncytial Virus (RSV) Vaccine Pt: or over 60 yrs (1 - Risk 60-74 years 1-dose series) 2011 AAA SCREENING 2016 DEPRESSION SCREENING 07/28/2024 MEDICARE AWV CALENDAR YEAR 2024 COVID-19 VACCINE ( - 2023- season) 2025 INFLUENZA VACCINE (#1) 2025 7, 05/02/2016, 05/16/2015, Additional history exists LIPID TESTING 06/21/2029 06/21/2024, 06/0 10/2023, 07/03/2023 COLON MONITORING 05/27/2032 05/27/2022 COLONOSCOPY - COLON CA SCREENING 05/27/2032 05/27/2022 [...] complete this topic MENINGOCOCCAL (Group B) VACCINE SHARED DECISION-MAKING Aged Out No longer eligible based on patient's age to complete this topic MENINGOCOCCAL GROUPS A/C/Y/W VACCINE Aged Out No longer eligible based on patient's age to complete this topic Insurance [employer] AETNA MEDICARE ADV AETNA MEDICARE ADV SELF PAY NO INSURANCE Member Subscriber Plan / Payer (Ef fective for All Dates) Name:John Rivera Member ID:Not on file Relation to Subscriber:Not on file Name:JOHN RIVERA Subscriber ID:Not on file Address: [address] [place] [id number] Payer ID:Not on file Group ID:Not on file Type:Self Pay Address: [place], [place] AETNA MEDICARE ADV SELF PAY NO INSURANCE Member Subscriber Plan / Payer (Ef fective for All Dates) Name:John Rivera Member ID:Not on file Relation to Subscriber:Not on file Name:JOHN RIVERA Subscriber ID:Not on file Address: [address] [place] [address] Payer ID:Not on file Group ID:Not on file Type:Self Pay Address: [place], [place] Care Teams Chief Financial Officer Relationship Specialty Start Date End Date Eh Stanley MD [address] [place] [address] PCP - General Internal Medicine 01/20/24
--- OUTSIDE RECORDS SUMMARY | 2025-05-09 13:01 | XMS_ITS | Encounter Summary ---
Author Organization [facility] Address [address] [place] [address] Care Team Providers Care Surgery Specialist Name Role Phone Eh Stanley MD Primary Care Provider [phone] Encounter Details Date Type Department Care Team (Latest Contact Info) Description 05/02/2005 Outpatient Historical [facility],NON-PATIENT Prakash Beltran MD [address] [facility] [address] [place] [address] MALIG NEOPLASM LIP/VERMIL NOS (Primary Dx) Social History Tobacco Use Types Packs/Day Years Used Date Smoking Tobacco: Never Assessed Sex and Gender Information Value Date Recorded Sex Assigned at Not on file Legal Sex Male 5:26 AM [employer] Gender Identity Not on file Sexual Orientation Not on file documented as of this encounter Plan of Treatment Not on file documented as of this encounter Visit Diagnoses Diagnosis Malignant neoplasm of lip, unspecified, vermilion border- Primary documented in this encounter Care Teams Surgery Specialist Relationship Specialty Start Date End Date Eh Stanley MD [address] [id number] PCP - General Internal Medicine 05/06/23 documented as of this encounter
== END 2025-05-09 13:03 | disposition short-term general hospital (02) ==
PROVIDERS: Emergency Provider Registered Nurse; PCP Family Medicine
DX: R53.1 Weakness (principal); R42 Dizziness and giddiness; Z87.891 Personal history of nicotine dependence; I25.10 Atherosclerotic heart disease of native coronary artery without angina pectoris; I73.9 Peripheral vascular disease, unspecified; I10 Essential (primary) hypertension; E11.9 Type 2 diabetes mellitus without complications; Z79.4 Long term (current) use of insulin; Z79.84 Long term (current) use of oral hypoglycemic drugs; Z96.82 Presence of neurostimulator; Z96.641 Presence of right artificial hip joint; Z95.1 Presence of aortocoronary bypass graft; Z98.62 Peripheral vascular angioplasty status; Z79.01 Long term (current) use of anticoagulants
CPT/HCPCS: 71046; 87081; 87804; 87880; 99213; G0463